=== PATIENT | male | born 1955 | race Caucasian/White ===

== ENCOUNTER → 2019-01-08 | Outpatient (CLI) | payer BC, OTHER ==
[~2019-01-08] MED LIST: AMLO5TAB6 PO; ISOVUE-370 76% 100ML VIAL (Q9967) As Ordered ONE; MICA40TA PO; MOTR200T44 PO; OXYC1TAB23 PO; TYLE167L PO; VALI5TAB PO
--- NOTE | 2019-01-08 23:27 | REP ---
Clinical: Emphysema. Technique: Axial contrast enhanced images from the thoracic inlet to the upper abdomen with coronal and sagittal re-formations using 100 ml Isovue 370 intravenous contrast material. Comparison: None. Findings: Diffuse advanced emphysematous changes along with scattered scarring and fibrosis as well as mild chronic bronchiectasis noted. No focal consolidation, significant nodule, or mass lesion appreciated. No significant adenopathy. No pleural effusion. No pneumothorax. Mediastinum demonstrates normal thoracic aorta, pulmonary vasculature and heart/pericardium. Limited upper abdomen demonstrates normal bilateral adrenal glands. Surrounding musculoskeletal structures demonstrate age-related changes without focal osseous abnormality. Impression: Diffuse chronic emphysematous changes. No acute mediastinal or pleuroparenchymal process appreciated. Electronically Signed by Brandon Faustin MD 01/08/2019 11:18 P
== END ==
LOC: M RAD 16:20
PROVIDERS: ATTEND Thoracic Surgery (Cardiothoracic Vascular Surgery)
DX: J93.11 Primary spontaneous pneumothorax (principal); J43.9 Emphysema, unspecified
CPT/HCPCS: 71260; Q9967

== ENCOUNTER → 2019-02-18 | Outpatient (CLI) | payer BC ==
[~2019-02-18] MED LIST changes: +CELE1CAP4 PO; -ISOVUE-370 76% 100ML VIAL (Q9967) As Ordered ONE; +MULTCAP PO; +OMEG1CAP16 PO; +VITA500C19 PO; +VITAD1000T PO
[2019-02-18 13:38] LABS: HEMATOCRIT 42.8 % (42.0-52.0); HEMOGLOBIN 14.8 g/dl (13.5-17.5); MEAN CORPUSCULAR HEMOGLOBIN 31.4 pg (27.0-33.0); MEAN CORPUSCULAR HGB CONC 34.6 g/dl (32.0-36.5); MEAN CORPUSCULAR VOLUME 90.9 fl (80.0-96.0); PLATELET COUNT, AUTOMATED 222 10^3/uL (150-450); RED BLOOD COUNT 4.71 10^6/uL (4.30-6.10)
[2019-02-18 13:59] LABS: INR 1.08; PROTHROMBIN TIME 13.7 SECONDS (11.8-14.0)
[2019-02-18 14:03] LABS: BLOOD UREA NITROGEN 24 MG/DL (7-18); CALCIUM LEVEL 9.2 MG/DL (8.8-10.2); CARBON DIOXIDE LEVEL 30 MEQ/L (21-32); CHLORIDE LEVEL 104 MEQ/L (98-107); CREATININE FOR GFR 0.92 MG/DL (0.70-1.30); GLOMERULAR FILTRATION RATE > 60.0 (>49); GLUCOSE, FASTING 105 MG/DL (70-100); SODIUM LEVEL 139 MEQ/L (136-145)
[2019-02-18 14:04] LABS: APPEARANCE, URINE CLEAR (CLEAR); BACTERIA, URINE AUTO NEGATIVE (NEGATIVE); BILIRUBIN, URINE AUTO NEGATIVE (NEGATIVE); BLOOD, URINE BLOOD NEGATIVE (NEGATIVE); COLOR, URINE STRAW (YELLOW); GLUCOSE, URINE (UA) AUTO NEGATIVE (NEGATIVE); KETONE, URINE AUTO NEGATIVE (NEGATIVE); LEUKOCYTE ESTERASE, URINE AUTO NEGATIVE (NEGATIVE); NITRITE, URINE AUTO NEGATIVE (NEGATIVE); PROTEIN, URINE AUTO NEGATIVE (NEGATIVE); RBC, URINE AUTO 2 /HPF (0-3); SPECIFIC GRAVITY URINE AUTO 1.006 (1.002-1.035); SQUAMOUS EPITHELIAL CELL UR AU 0 /HPF (0-6); UROBILINOGEN, URINE AUTO 0.2 mg/dL (0.0-2.0); WBC, URINE AUTO 0 /HPF (0-3)
[2019-02-18 14:15] LABS: ABG BASE EXCESS 0.4 (-2.0-2.0); ABG HCO3 24.2 MEQ/L (22.0-26.0); ABG O2 SATURATION 96.1 % (95.0-99.0); ABG PARTIAL PRESSURE CO2 36.4 mmHg (35.0-45.0); ABG PARTIAL PRESSURE O2 82.8 mmHg (75.0-100.0); ABG STANDARD HCO3 24.8 MEQ/L (22.0-26.0); ABG TOTAL CO2 25.3 MEQ/L (23.0-31.0)
--- NOTE | 2019-02-18 18:40 | ECGEPIP ---
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
--- NOTE | 2019-02-19 08:46 | REP ---
REASON: History of bullous emphysema. Bullous emphysematous changes are suspected in the lung upper lobe regions, left greater than right. In the right upper lobe region, there is a potential but vague and subtle 1.2 cm sized opacity. The pleural angles are sharp, and the heart is not enlarged. The osseous structures are within normal limits. IMPRESSION: 1. Bullous emphysematous changes suspected, as described above. 2. Potential right upper lobe nodule, as described above. CT examination of the chest of 01/08/2019 showed marked appearing chronic lung field changes. If the patient is experiencing acute respiratory abnormalities, then I would suggest followup with a chest CT so as it can be compared to the prior CT. Electronically Signed by Lincoln Pulido DO 02/19/2019 11:26 A
== END ==
LOC: M ADMPAT 12:46
PROVIDERS: ATTEND Thoracic Surgery (Cardiothoracic Vascular Surgery)
DX: R91.8 Other nonspecific abnormal finding of lung field (principal); J43.9 Emphysema, unspecified

== ENCOUNTER 2019-02-22 10:02 | Inpatient (IN) | payer BC ==
[2019-02-22] VITALS (10 sets, daily range): BP systolic 95–146; BP diastolic 57–74; O2SAT 99
[~2019-02-22] VITALS: Ht 177.8 cm; Wt 89.7 kg
[~2019-02-22 10:02] MED LIST changes: +LIDOCAINE 1% MDV 20ML VIAL SQ PRN; +LIDOCAINE 2% INJ 100 MG/5 ML SDV (FOR ANES.) As Ordered ONE; +LR 1,000 ML IV ONE; +MIDAZOLAM INJ 2 MG/2 ML VIAL (J2250) As Ordered ONE; +MUPIROCIN 2% OINT 22 GM TUBE TOP ONE; +ONDANSETRON 4MG/2ML VIAL (J2405) As Ordered ONE; +PROPOFOL 200 MG/20 ML VIAL As Ordered ONE; +ROCURONIUM BROMIDE 50 MG/5 ML VIAL As Ordered ONE; +dexameTHASONE 4 MG/ML 1ML VIAL (J1100) As Ordered ONE; +fentaNYL 250 MCG/5 ML INJECTION (J3010) As Ordered ONE
[2019-02-22] MEDS ORDERED: ceFAZolin 2 GM/D5W 50 ML IV BAG (J0690 PER 500MG) As Ordered ONE (10:07)
[2019-02-22] MEDS ORDERED: CETACAINE SPRAY 5GM As Ordered ONE (10:39)
[2019-02-22] MEDS ORDERED: BUPIVACAINE LIPOSOME/PF 1.3% 20ML VIAL (13.3MG/ML)(EXPAREL)(C9290 PER1MG) As Ordered ONE (10:39)
[2019-02-22] MEDS ORDERED: BUPIVACAINE HCL 0.5% 10 ML VIAL As Ordered ONE (10:39)
[2019-02-22] MEDS ORDERED: BUPIVACAINE HCL 0.25% 30 ML VIAL As Ordered ONE (10:54)
[2019-02-22] MEDS ORDERED: MIDAZOLAM INJ 2 MG/2 ML VIAL (J2250) As Ordered ONE (10:55)
[2019-02-22] MEDS ORDERED: fentaNYL 100 MCG/2 ML INJECTION (J3010) As Ordered ONE (10:55)
[2019-02-22] MEDS: fentaNYL 100 MCG/2 ML INJECTION (J3010) IV SCH ×3 (11:00→17:49)
[2019-02-22] MEDS ORDERED: diphenhydrAMINE INJ 50MG/ML VIAL (J1200) IV PRN (11:30)
[2019-02-22] MEDS ORDERED: WALLBOXKEY XX PRN (11:30)
[2019-02-22] MEDS ORDERED: NALOXONE INJ 0.4 MG/1 ML VIAL (J2310) IV PRN (11:30)
[2019-02-22] MEDS ORDERED: ONDANSETRON 4MG/2ML VIAL (J2405) IV PRN ×3 (11:30→15:45)
[2019-02-22] MEDS ORDERED: EPIDURAL/PCA KEYS XX PRN (11:30)
[2019-02-22] MEDS ORDERED: METOCLOPRAMIDE INJ 10MG/2ML VIAL (J2765) IV PRN (11:30)
[2019-02-22] MEDS ORDERED: MIDAZOLAM INJ 2 MG/2 ML VIAL (J2250) IV ONE (11:30)
[2019-02-22] MEDS ORDERED: STERILE TALC POWDER 3GM VIAL As Ordered ONE (11:31)
[2019-02-22] MEDS ORDERED: TALCAIR POWDER BLOWER (CAN ONLY BE USED WITH 3GM TALC VIAL) XX ONE (11:32)
[2019-02-22] MEDS ORDERED: ROCURONIUM BROMIDE 50 MG/5 ML VIAL As Ordered ONE ×2 (12:21→13:44)
[2019-02-22] MEDS ORDERED: ACETAMINOPHEN 1000MG 100ML IV BTL (OFIRMEV) (J0131 PER 10MG) As Ordered ONE (12:53)
[2019-02-22] MEDS ORDERED: SUGAMMADEX SODIUM 500 MG/5 ML VIAL (BRIDION) As Ordered ONE (13:38)
[2019-02-22] MEDS ORDERED: KETOROLAC 60 MG/2 ML VIAL (J1885) As Ordered ONE (14:21)
[2019-02-22] MEDS ORDERED: NORCO, ANEXSIA 5/325MG TABLET (HYDROcodone/ACETAMINOPHEN) PO PRN (14:45)
[2019-02-22] MEDS ORDERED: ACETAMINOPHEN TAB 650MG DOSE (2X325MG) PO PRN (14:45)
[2019-02-22] MEDS ORDERED: PERCOCET 5MG/325MG TAB PO PRN ×2 (14:45→15:45)
[2019-02-22] MEDS ORDERED: LEVALBUTEROL 1.25 MG/0.5 ML CONCENTRATE NEB NEB PRN (14:45)
[2019-02-22] MEDS: FENTANYL/BUPIVACAINE/NACL BAG 250 ML EPIDURAL SCH (15:01)
[2019-02-22 15:21] LABS: ABG BASE EXCESS -2.5 (-2.0-2.0); ABG HCO3 23.7 MEQ/L (22.0-26.0); ABG O2 SATURATION 94.6 % (95.0-99.0); ABG PARTIAL PRESSURE CO2 46.2 mmHg (35.0-45.0); ABG PARTIAL PRESSURE O2 77.4 mmHg (75.0-100.0); ABG STANDARD HCO3 22.3 MEQ/L (22.0-26.0); ABG TOTAL CO2 25.1 MEQ/L (23.0-31.0); ABG pH (ARTERIAL) 7.328 UNITS (7.350-7.450)
[2019-02-22 15:24] LABS: BASO % 0.3 % (0.0-1.0); EOS # 0.1 10^3/uL (0.0-0.50); EOS % 0.8 % (0.0-3.0); HEMATOCRIT 41.5 % (42.0-52.0); HEMOGLOBIN 14.5 g/dl (13.5-17.5); LYMPH # 2.3 10^3/uL (1.5-4.5); LYMPH % 20.1 % (24.0-44.0); MEAN CORPUSCULAR HEMOGLOBIN 32.4 pg (27.0-33.0); MEAN CORPUSCULAR HGB CONC 34.9 g/dl (32.0-36.5); MEAN CORPUSCULAR VOLUME 92.8 fl (80.0-96.0); MONO # 0.3 10^3/uL (0.0-0.8); MONO % 2.6 % (0.0-5.0); NEUTROPHILS # 8.7 10^3/uL (1.8-7.7); NEUTROPHILS % 75.8 % (36.0-66.0); PLATELET COUNT, AUTOMATED 197 10^3/uL (150-450); RED BLOOD COUNT 4.47 10^6/uL (4.30-6.10); WHITE BLOOD COUNT 11.5 10^3/uL (4.0-10.0)
[2019-02-22] MEDS: fentaNYL 100 MCG/2 ML INJECTION (J3010) IV PRN ×4 (15:40→16:31)
[2019-02-22] MEDS ORDERED: LR 1,000 ML IV SCH (15:45)
--- NOTE | 2019-02-22 15:58 | REP ---
CHEST, PORTABLE: AP portable view of the chest is performed and compared to a prior study of 02/18/2019. There are two left chest tubes. I do not see a significant pneumothorax. Heart and mediastinum are unremarkable. I suspect mild interstitial edema bilaterally with some patchy atelectasis or infiltrate in the left mid lung zone. Electronically Signed by Micheal Santos MD 02/24/2019 11:04 P
[2019-02-22 16:00] LABS: BLOOD UREA NITROGEN 20 MG/DL (7-18); CALCIUM LEVEL 8.2 MG/DL (8.8-10.2); CARBON DIOXIDE LEVEL 26 MEQ/L (21-32); CHLORIDE LEVEL 104 MEQ/L (98-107); CREATININE FOR GFR 0.99 MG/DL (0.70-1.30); GLOMERULAR FILTRATION RATE > 60.0 (>49); GLUCOSE, FASTING 153 MG/DL (70-100); POTASSIUM SERUM 4.5 MEQ/L (3.5-5.1); SODIUM LEVEL 138 MEQ/L (136-145)
[2019-02-22] MEDS: KCL 20MEQ IN D5/NS 1000ML 1,000 ML IV SCH (16:00)
[2019-02-22] MEDS: PANTOPRAZOLE 40MG TAB (PROTONIX) PO SCH (17:36)
[2019-02-22] MEDS: amLODIPine 5 MG TAB PO SCH (17:37)
[2019-02-22] MEDS: TELMISARTAN 20 MG TAB PO SCH (18:50)
[2019-02-22] MEDS: LEVALBUTEROL 1.25 MG/0.5 ML CONCENTRATE NEB NEB SCH (20:09)
[2019-02-22] MEDS: KETOROLAC 30 MG/ML VIAL (J1885) IV SCH (20:52)
[2019-02-22] MEDS: HEPARIN SOD (PORCINE) 5000 UNITS/ML VIAL SC SCH (20:53)
[2019-02-22] MEDS: DOCUSATE SODIUM 100 MG CAP PO SCH (20:53)
[2019-02-22] MEDS: ceFAZolin SOD 1 GM in D5W MINI-BAG PLUS 50 ML IV SCH (20:54)
[2019-02-23] VITALS (11 sets, daily range): BP systolic 93–130; BP diastolic 50–75
[2019-02-23] MEDS: KCL 20MEQ IN D5/NS 1000ML 1,000 ML IV SCH ×2 (03:57→17:02)
[2019-02-23] MEDS: KETOROLAC 30 MG/ML VIAL (J1885) IV SCH ×4 (03:57→20:45)
[2019-02-23] MEDS: ceFAZolin SOD 1 GM in D5W MINI-BAG PLUS 50 ML IV SCH ×3 (04:01→20:46)
[2019-02-23] MEDS: LEVALBUTEROL 1.25 MG/0.5 ML CONCENTRATE NEB NEB SCH ×3 (04:14→19:23)
[2019-02-23 05:43] LABS: ABG BASE EXCESS -2.4 (-2.0-2.0); ABG HCO3 22.8 MEQ/L (22.0-26.0); ABG O2 SATURATION 97.7 % (95.0-99.0); ABG PARTIAL PRESSURE CO2 40.6 mmHg (35.0-45.0); ABG PARTIAL PRESSURE O2 106.5 mmHg (75.0-100.0); ABG STANDARD HCO3 22.5 MEQ/L (22.0-26.0); ABG pH (ARTERIAL) 7.367 UNITS (7.350-7.450)
[2019-02-23 06:20] LABS: BASO % 0.2 % (0.0-1.0); HEMATOCRIT 35.8 % (42.0-52.0); HEMOGLOBIN 12.6 g/dl (13.5-17.5); LYMPH # 2.2 10^3/uL (1.5-4.5); LYMPH % 21.5 % (24.0-44.0); MEAN CORPUSCULAR HEMOGLOBIN 32.9 pg (27.0-33.0); MEAN CORPUSCULAR HGB CONC 35.2 g/dl (32.0-36.5); MEAN CORPUSCULAR VOLUME 93.5 fl (80.0-96.0); MONO # 0.9 10^3/uL (0.0-0.8); MONO % 8.3 % (0.0-5.0); NEUTROPHILS # 7.1 10^3/uL (1.8-7.7); NEUTROPHILS % 69.7 % (36.0-66.0); PLATELET COUNT, AUTOMATED 193 10^3/uL (150-450); RED BLOOD COUNT 3.83 10^6/uL (4.30-6.10); WHITE BLOOD COUNT 10.2 10^3/uL (4.0-10.0)
[2019-02-23 06:40] LABS: BLOOD UREA NITROGEN 16 MG/DL (7-18); CALCIUM LEVEL 7.5 MG/DL (8.8-10.2); CARBON DIOXIDE LEVEL 25 MEQ/L (21-32); CHLORIDE LEVEL 107 MEQ/L (98-107); CREATININE FOR GFR 0.96 MG/DL (0.70-1.30); GLOMERULAR FILTRATION RATE > 60.0 (>49); GLUCOSE, FASTING 145 MG/DL (70-100); SODIUM LEVEL 141 MEQ/L (136-145)
[2019-02-23] MEDS: amLODIPine 5 MG TAB PO SCH (09:00)
[2019-02-23] MEDS: TELMISARTAN 20 MG TAB PO SCH (09:00)
[2019-02-23] MEDS: MOM 30ML SUSPENSION UDC PO SCH (09:05)
[2019-02-23] MEDS: HEPARIN SOD (PORCINE) 5000 UNITS/ML VIAL SC SCH ×2 (09:05→20:46)
[2019-02-23] MEDS: VITAMIN D 1,000 INTERNATIONAL UNITS TABLET PO SCH (09:06)
[2019-02-23] MEDS: DOCUSATE SODIUM 100 MG CAP PO SCH ×2 (09:06→20:46)
[2019-02-23] MEDS: PANTOPRAZOLE 40MG TAB (PROTONIX) PO SCH (09:06)
--- NOTE | 2019-02-23 09:25 | REP ---
PA and lateral chest: Comparison is a 2018. There are two left thoracotomy tubes, unchanged. There is no pneumothorax or pleural fluid collection. Diffuse interstitial coarsening is again identified. The focal infiltrate in the left mid lung has decreased in size. Cardiac size is normal. The tim, mediastinum, skeletal structures are unremarkable. There is an epidural catheter, unchanged. Impression: No pneumothorax or pleural fluid collection. Diffuse interstitial coarsening, unchanged. Left mid lung focal infiltrate has decreased in size. Left chest tubes and epidural catheter are unchanged. Electronically Signed by Micheal Mariee MD 02/23/2019 09:16 A
--- NOTE | 2019-02-23 12:14 | IPN ---
DATE: 02/23/2019 This is the first postoperative day for Mr. Agarwal. He has had a stable night of surgery. His pain is being well controlled and, gratifyingly, there is no air leak. His vital signs show a maximum temperature (Tmax) of 98.5, with a heart rate that ranges between 68 and 88 in a sinus rhythm, respiratory rate of 16-18 without the use of accessory muscles, who is 97-98% saturated on 2 liters nasal cannula, and has blood pressures ranging between 102/50 to 126/62. His intake and output for the past 24 hours are recorded as 1773 in and 1000 mL out for a positivity of 768 mL. Chest tube has put out 175 mL, and there is no air leak. He has put out 105 mL of urine. On physical examination, he has crackles in the right and left lower bases during late inspiration. Percussion note is full to the diaphragm. Cardiac exam is without murmurs, clicks, gallops, or rubs. I cannot feel his point of maximum impulse (PMI). S1 and S2 are normal. Abdomen is soft, nontender, but tympanotic and distended. Extremities show no pretibial edema. No calf tenderness. No differential swelling of the upper extremities. Skin is warm, dry, and perfused without cyanosis or mottling, including that of the nail beds and knees. Neck is supple. There is no jugular venous distention. No subcutaneous emphysema. Trachea is midline. Mouth shows his mucous membranes to be pink and moist. Lips and commissures without lesions. There is no thrush. Eyes show his pupils to be equal and reactive. Extraocular motions are intact. Sclerae anicteric. Neurologic shows II-XII intact, along with gross motor and gross sensation intact. Gait is not tested. Psychiatric shows him to be awake and alert and oriented times three with appropriate mood and affect and conversational. His white count today is 10.2 with hemoglobin and hematocrit of 12.6 and 35.8, down from 14.5 and 41.5 secondary to hemodilution. Platelet count is 193, and differentials are 69% neutrophils, 21% lymphocytes, 8% monocytes. There are no immature forms. No toxic granulations. Electrolytes are normal with a BUN and creatinine of 16 and 0.96, glucose of 145, and a calcium 7.5. His blood gasses today show a pH of 7.36, pCO2 of 40, pO2 of 106 on 2 liters nasal cannula with a base excess of -2.4. His chest x-ray today shows his lung fully expanded to the chest wall. There is minimal subcutaneous emphysema at the base of the neck. Costophrenic angles are sharp and diaphragms are equal height. Cardiac silhouette is normal, and I see no overt infiltrates. IMPRESSION: 1. Emphysematous bullous disease. 2. Spontaneous pneumothorax from large bulla. 3. Hypertension. PLAN AND DISCUSSION: I will transfer him to progressive care unit (PCU) today. I will keep him on suction. I am very gratified there is no air leak.
[2019-02-23] MEDS: FENTANYL/BUPIVACAINE/NACL BAG 250 ML EPIDURAL SCH (13:56)
[2019-02-24] VITALS (7 sets, daily range): BP systolic 100–144; BP diastolic 60–78
[2019-02-24] MEDS: LEVALBUTEROL 1.25 MG/0.5 ML CONCENTRATE NEB NEB SCH ×4 (00:20→19:53)
[2019-02-24] MEDS: KETOROLAC 30 MG/ML VIAL (J1885) IV SCH ×4 (03:56→21:03)
[2019-02-24 04:12] LABS: BASO % 0.4 % (0.0-1.0); EOS # 0.2 10^3/uL (0.0-0.50); EOS % 1.7 % (0.0-3.0); HEMATOCRIT 33.7 % (42.0-52.0); HEMOGLOBIN 11.3 g/dl (13.5-17.5); LYMPH # 2.8 10^3/uL (1.5-4.5); LYMPH % 27.5 % (24.0-44.0); MEAN CORPUSCULAR HEMOGLOBIN 31.3 pg (27.0-33.0); MEAN CORPUSCULAR HGB CONC 33.5 g/dl (32.0-36.5); MEAN CORPUSCULAR VOLUME 93.4 fl (80.0-96.0); MONO % 9.6 % (0.0-5.0); NEUTROPHILS # 6.2 10^3/uL (1.8-7.7); NEUTROPHILS % 60.6 % (36.0-66.0); PLATELET COUNT, AUTOMATED 170 10^3/uL (150-450); RED BLOOD COUNT 3.61 10^6/uL (4.30-6.10); WHITE BLOOD COUNT 10.2 10^3/uL (4.0-10.0)
[2019-02-24] MEDS: ceFAZolin SOD 1 GM in D5W MINI-BAG PLUS 50 ML IV SCH ×2 (04:18→13:07)
[2019-02-24 04:33] LABS: BLOOD UREA NITROGEN 16 MG/DL (7-18); CALCIUM LEVEL 7.2 MG/DL (8.8-10.2); CARBON DIOXIDE LEVEL 27 MEQ/L (21-32); CHLORIDE LEVEL 111 MEQ/L (98-107); CREATININE FOR GFR 0.94 MG/DL (0.70-1.30); GLOMERULAR FILTRATION RATE > 60.0 (>49); GLUCOSE, FASTING 137 MG/DL (70-100); POTASSIUM SERUM 3.8 MEQ/L (3.5-5.1); SODIUM LEVEL 142 MEQ/L (136-145)
[2019-02-24] MEDS: KCL 20MEQ IN D5/NS 1000ML 1,000 ML IV SCH (08:39)
[2019-02-24] MEDS: MOM 30ML SUSPENSION UDC PO SCH (08:39)
[2019-02-24] MEDS: VITAMIN D 1,000 INTERNATIONAL UNITS TABLET PO SCH (08:39)
[2019-02-24] MEDS: DOCUSATE SODIUM 100 MG CAP PO SCH ×2 (08:39→20:26)
[2019-02-24] MEDS: PANTOPRAZOLE 40MG TAB (PROTONIX) PO SCH (08:40)
[2019-02-24] MEDS: HEPARIN SOD (PORCINE) 5000 UNITS/ML VIAL SC SCH ×2 (08:41→20:28)
[2019-02-24] MEDS: TELMISARTAN 20 MG TAB PO SCH (09:00)
[2019-02-24] MEDS: amLODIPine 5 MG TAB PO SCH (09:00)
--- NOTE | 2019-02-24 10:51 | REP ---
PA and lateral chest: Comparison is a 2018. The two left thoracotomy tubes are unchanged. There is no pneumothorax. The there is diffuse interstitial coarsening, somewhat worse throughout the left lung on the right. This is unchanged. The small focal infiltrate centrally in the left lung is less radiodense. Cardiac size is normal. The tim, mediastinum, skeletal structures are unremarkable. The epidural catheter is unchanged. Impression: No interval change except that these focal infiltrates centrally in the left lung has decreased in density. Electronically Signed by Micheal Mariee MD 02/24/2019 08:01 A
--- NOTE | 2019-02-24 10:52 | IPN ---
DATE OF SERVICE: 02/24/2019 This is now the second postoperative day for Mr. Agarwal. His pain is more well controlled with the epidural with the epidural being raised to 10 mL/hr. He is coughing but not bringing up any sputum. Gratifying there is no air leak and his chest x-ray shows his lung fully expanded to the chest wall. His vital signs show a T-max of 99.1 with a heart rate that ranges between 88 and 117 in a sinus rhythm, respiratory rate of 18-22 without the use of accessory muscles who is 92-94% saturated on 2 liters nasal cannula and has blood pressure ranging between 108/62 to 121/67. His intake and output over the past 24 hours has been recorded as 2430 in and 1725 out for a positivity of 700 mL. He has put out 125 mL from the chest tube. He weighs 86 kg today compared to 83 kg yesterday. His urine output has been 1600 mL and oral intake has been 1505 mL. PHYSICAL EXAMINATION: He has some coarse rhonchi on the left side. Most significantly however, I hear bibasilar velcro rales at both bases including the right base. These are well pronounced during all of inspiration. Percussion notes are full to the diaphragm. Cardiac exam is without murmurs, clicks, gallops or rubs. I cannot feel his PMI. S1 and S2 are normal. Abdomen is soft, nontender, bowel sounds are positive. There is no hepatomegaly. No CVA tenderness. He is tympanitic and slightly distended and has not yet had a bowel movement. Extremities show no pretibial edema. No calf tenderness. No differential swelling of the upper extremities. Skin is warm, dry and perfused without cyanosis or mottling including that of the nail beds and knees. Neck is supple. There is no jugular venous distention. No subcutaneous emphysema. Trachea is midline. Mouth shows his mucous membranes to be pink and moist. Lips and commissures are without lesions. There is no thrush. Eyes show his pupils to be equal and reactive. Extraocular motor intact. Sclera anicteric. Neuro shows II through XII intact with gross motor and gross sensation intact. Gait is not tested. Psychiatric shows him to be awake and alert, oriented times three with appropriate mood and affect and conversational. His white count today is 10.2 unchanged from yesterday with hemoglobin and hematocrit of 11.3 and 33.7 down from 12.6 and 35.8 yesterday secondary to hemodilution. Platelet count is 170 and differential shows 16% neutrophils, 27% lymphocytes, 9% monocytes. There are no immature forms. No toxic granulations. Electrolytes are essentially normal today with a BUN and creatinine of 16 and 0.94, glucose of 137 and calcium of 7.2. There are no blood gases on him today. His chest x-ray today shows the lung fully expanded to the chest wall. Costophrenic angles are sharp. There is some atelectasis in the left lower hemithorax. I see postoperative changes but no true infiltrates per se. Subcutaneous emphysema is now completely resolved. Chest tubes are in good place. IMPRESSION: 1. Emphysematous bullous disease. 2. Spontaneous pneumothorax from large bulla. 3. Hypertension. 4. Possible interstitial lung disease with bilateral velcro rales. PLAN AND DISCUSSION: I was tempted to remove him from suction, however I really do want that lung to adhere and scar to the chest wall and I will keep him on suction today. He is already spontaneously diuresing and I will not diurese him today. Will heparin lock his IV as his oral intake is adequate.
[2019-02-24] MEDS: FENTANYL/BUPIVACAINE/NACL BAG 250 ML EPIDURAL SCH (13:08)
[2019-02-24] MEDS ORDERED: SLF 3 ML SYR IV PRN (13:30)
[2019-02-24] MEDS: SLF 3 ML SYR IV SCH ×2 (14:18→21:03)
[2019-02-25] MEDS: LEVALBUTEROL 1.25 MG/0.5 ML CONCENTRATE NEB NEB SCH ×4 (00:12→20:20)
[2019-02-25] MEDS: KETOROLAC 30 MG/ML VIAL (J1885) IV SCH ×4 (03:16→20:56)
[2019-02-25 04:00] VITALS: BP 145/85
[2019-02-25 05:38] LABS: BASO % 0.4 % (0.0-1.0); EOS # 0.4 10^3/uL (0.0-0.50); EOS % 3.9 % (0.0-3.0); HEMATOCRIT 33.9 % (42.0-52.0); HEMOGLOBIN 11.4 g/dl (13.5-17.5); LYMPH # 2.8 10^3/uL (1.5-4.5); LYMPH % 29.5 % (24.0-44.0); MEAN CORPUSCULAR HEMOGLOBIN 31.2 pg (27.0-33.0); MEAN CORPUSCULAR HGB CONC 33.6 g/dl (32.0-36.5); MEAN CORPUSCULAR VOLUME 92.9 fl (80.0-96.0); MONO # 0.8 10^3/uL (0.0-0.8); MONO % 8.5 % (0.0-5.0); NEUTROPHILS # 5.5 10^3/uL (1.8-7.7); NEUTROPHILS % 57.2 % (36.0-66.0); PLATELET COUNT, AUTOMATED 189 10^3/uL (150-450); RED BLOOD COUNT 3.65 10^6/uL (4.30-6.10); WHITE BLOOD COUNT 9.6 10^3/uL (4.0-10.0)
[2019-02-25 05:56] LABS: BLOOD UREA NITROGEN 17 MG/DL (7-18); CALCIUM LEVEL 7.3 MG/DL (8.8-10.2); CARBON DIOXIDE LEVEL 25 MEQ/L (21-32); CHLORIDE LEVEL 107 MEQ/L (98-107); CREATININE FOR GFR 0.97 MG/DL (0.70-1.30); GLOMERULAR FILTRATION RATE > 60.0 (>49); GLUCOSE, FASTING 156 MG/DL (70-100); POTASSIUM SERUM 4.1 MEQ/L (3.5-5.1); SODIUM LEVEL 139 MEQ/L (136-145)
[2019-02-25] MEDS: SLF 3 ML SYR IV SCH ×3 (06:00→20:56)
[2019-02-25 08:00] VITALS: BP 116/71
--- NOTE | 2019-02-25 08:42 | IPN ---
DATE: 02/25/2019 This is now the third postoperative day for Mr. Agarwal who is doing well. He has not yet had a bowel movement. His pain is being well controlled with the epidural and he is up and about walking. I still hear the bibasilar Velcro crackles and I am very concerned that this may represent underlying interstitial disease; however, pathology is still pending and probably will not be back before the patient is discharged. His vital signs show a T-max of 98.9 with a heart rate that ranges between 95 and 68 and is sinus rhythm, respiratory rate of 18-16 without the use of accessory muscles who is 95% saturated on room air and whose blood pressure is ranging between 144/78 to 116/60. His intake and output over the past 24 hours has been recorded as 1835 in and 1350 out for a positivity of 485 mL. He has put 85 mL out the chest tube and there is no air leak. He weight today is 88.9 kg compared to 86 kg yesterday. PHYSICAL EXAMINATION: On physical examination, his lungs show equal breath sounds on either side with a full percussion note to the diaphragm. As noted above, I hear the bibasilar Velcro crackles during inspiration on both sides. Cardiac exam is without murmurs, clicks, gallops or rubs. I cannot feel his PMI. S1 and S2 are normal. Abdomen is tympanitic, distended, but nontender. Bowel sounds are positive. There is no hepatomegaly. No CVA tenderness. Extremities show no pretibial edema. No calf tenderness. No differential swelling of the upper extremities. Skin is warm, dry and perfused without cyanosis or mottling including that of the nail beds and knees. Neck is supple. There is no jugular venous distention. No subcutaneous emphysema. Trachea is midline. Mouth shows his mucous membranes to be pink and moist. Lips and commissures are without lesions. There is no thrush. Eyes show his pupils to be equal and reactive. Extraocular motors intact. Sclera nonicteric. Neuro shows II through XII intact along with gross motor and gross sensation intact. Gait is also intact. Psychiatric shows him to be awake and alert, oriented times three with appropriate mood and affect and conversational. His white count today is 9.6 with hemoglobin and hematocrit of 11.4 and 33.9, unchanged from yesterday with a platelet count of 189 and stable. Differential shows 57% neutrophils, 29% lymphocytes, 80% monocytes. There are no immature forms. No toxic granulations. Chemistries show normal electrolytes with a BUN and creatinine of 17 and 0.97, glucose of 156 and calcium of 7.3. Chest x-ray today shows his lung fully expanded to the chest wall with sharp costophrenic angles. Chest tubes are in good place. There is no subcutaneous emphysema. Pathology is, of course, still pending. IMPRESSION: 1. Emphysematous bullous disease. 2. Spontaneous pneumothorax from large bulla. 3. Hypertension. 4. Possible interstitial lung disease, pathology pending. PLAN AND DISCUSSION: I will discontinue his suction today. If all goes well, I will plan to discontinue his chest tube tomorrow and discharge him on Monday.
[2019-02-25] MEDS: MOM 30ML SUSPENSION UDC PO SCH ×2 (09:00→10:57)
[2019-02-25] MEDS: DOCUSATE SODIUM 100 MG CAP PO SCH ×3 (09:00→20:56)
[2019-02-25] MEDS: PANTOPRAZOLE 40MG TAB (PROTONIX) PO SCH (09:30)
[2019-02-25] MEDS: VITAMIN D 1,000 INTERNATIONAL UNITS TABLET PO SCH (09:30)
[2019-02-25] MEDS: amLODIPine 5 MG TAB PO SCH (09:31)
[2019-02-25] MEDS: TELMISARTAN 20 MG TAB PO SCH (09:33)
[2019-02-25] MEDS: HEPARIN SOD (PORCINE) 5000 UNITS/ML VIAL SC SCH ×2 (09:35→20:56)
[2019-02-25] MEDS: BISACODYL 10 MG SUPP PR PRN ×3 (09:35→18:33)
--- NOTE | 2019-02-25 09:39 | REP ---
PA and lateral chest: Comparison is a 2018. The the two left thoracotomy tubes are unchanged. There is no pneumothorax. The diffuse interstitial coarsening is unchanged. The focal infiltrate centrally in the left lung is unchanged. Cardiac size is normal. The tim, mediastinum, skeletal structures are unremarkable. Impression: No interval change. Electronically Signed by Micheal Mariee MD 02/25/2019 09:31 A
[2019-02-25 12:00] VITALS: BP 119/72
[2019-02-25] MEDS: FENTANYL/BUPIVACAINE/NACL BAG 250 ML EPIDURAL SCH (12:58)
[2019-02-25 16:00] VITALS: BP 123/73
[2019-02-25 20:00] VITALS: BP 153/78
--- NOTE | 2019-02-25 20:16 | RO ---
DATE OF PROCEDURE: 02/22/2019 PREPROCEDURE DIAGNOSIS: Emphysematous bullous disease, spontaneous pneumothorax, possible interstitial lung disease. POSTPROCEDURE DIAGNOSIS: Emphysematous bullous disease, spontaneous pneumothorax, possible interstitial lung disease. PROCEDURE: Video-assisted thoracoscopic surgery (VATS), multiple wedge resections with a bullectomy of the left upper lobe and a wedge resection of the left lower lobe, bronchoscopy and talc pleurodesis. SURGEON: Surya Smith MD ROVING WEIGHT GAUGER: ANESTHESIA: FINDINGS: There was a very large anterior superior bulla almost the entire length of the upper lobe, extending to the lingula. There were numerous adhesions to it and to pericardial fat. These lesions were lysed. The bulla was removed with multiple staple lines. The bronchoscopy revealed a normal branching tracheobronchial tree with surprisingly few secretions. There were no endobronchial lesions. DESCRIPTION OF PROCEDURE: Under satisfactory general anesthesia and single lumen tube endotracheal intubation, the bronchoscope was placed into the tracheobronchial tree. The above findings were noted. There was a normal branching pattern and each segment and subsegment were thoroughly inspected and there were no endobronchial lesions. The patient was then turned into the right lateral decubitus position and sterilely prepped and draped in the usual fashion. Eventually four VATS incisions were made. Initially three 5 mm ports were placed. Upon placing the scope, multiple adhesions were found to the lingula, to the pericardial fat. These were lysed with the harmonic scalpel. I looked for but could not find the phrenic nerve. The upper lobe cupola also had numerous adhesions, and these were also lysed with the harmonic scalpel. Finally, the entire upper lobe was freed up and the extent of the bulla was noted. By grasping the inferior edge of the bulla and aiming the stapler posteriorly, the entire bulla was stapled with numerous staple lines along the entire length of the upper lobe. Bulla was placed into a Endo Catch bag and removed via the 12 mm port incision, which had to be extended a few millimeters to release the specimen. The specimen was delivered to the lab for pathological examination. Attention was then turned to the left lower lobe at the costophrenic angle posteriorly, and a wedge of this tissue was taken for diagnostic purposes for suspected interstitial lung disease. The long bulla staple line was then covered with Tisseel glue. Talc was then insufflated throughout the upper portion of the hemithorax. Two chest tubes were placed, a #2 and #24, two straights through the prior 5 mm port incisions. These were secured to the chest wall and connected to the Pleur-evac. Lung was inflated under direct vision. The incisions were closed with a running #0 Vicryl suture for the 12 mm port incision followed by #3-0 Vicryl suture for the subcutaneous tissue and #4-0 Monocryl subcuticular suture for the skin. The patient tolerated the procedure well and left the operating room in satisfactory condition.
[2019-02-25 23:59] VITALS: BP 126/77
[2019-02-26] MEDS: LEVALBUTEROL 1.25 MG/0.5 ML CONCENTRATE NEB NEB SCH ×4 (01:44→20:43)
[2019-02-26] MEDS: KETOROLAC 30 MG/ML VIAL (J1885) IV SCH ×4 (02:13→20:14)
[2019-02-26 04:00] VITALS: BP 116/62
[2019-02-26] MEDS: SLF 3 ML SYR IV SCH ×3 (05:14→20:14)
[2019-02-26 05:39] LABS: BASO % 0.2 % (0.0-1.0); EOS # 0.4 10^3/uL (0.0-0.50); EOS % 3.8 % (0.0-3.0); HEMATOCRIT 33.3 % (42.0-52.0); HEMOGLOBIN 11.3 g/dl (13.5-17.5); LYMPH # 2.5 10^3/uL (1.5-4.5); LYMPH % 27.1 % (24.0-44.0); MEAN CORPUSCULAR HEMOGLOBIN 32.3 pg (27.0-33.0); MEAN CORPUSCULAR HGB CONC 33.9 g/dl (32.0-36.5); MEAN CORPUSCULAR VOLUME 95.1 fl (80.0-96.0); MONO # 0.8 10^3/uL (0.0-0.8); MONO % 8.8 % (0.0-5.0); NEUTROPHILS # 5.5 10^3/uL (1.8-7.7); NEUTROPHILS % 59.6 % (36.0-66.0); PLATELET COUNT, AUTOMATED 199 10^3/uL (150-450); WHITE BLOOD COUNT 9.2 10^3/uL (4.0-10.0)
[2019-02-26 05:58] LABS: BLOOD UREA NITROGEN 19 MG/DL (7-18); CALCIUM LEVEL 7.7 MG/DL (8.8-10.2); CARBON DIOXIDE LEVEL 28 MEQ/L (21-32); CHLORIDE LEVEL 105 MEQ/L (98-107); CREATININE FOR GFR 0.96 MG/DL (0.70-1.30); GLOMERULAR FILTRATION RATE > 60.0 (>49); GLUCOSE, FASTING 123 MG/DL (70-100); POTASSIUM SERUM 4.3 MEQ/L (3.5-5.1); SODIUM LEVEL 138 MEQ/L (136-145)
[2019-02-26 08:00] VITALS: BP 145/82
[2019-02-26] MEDS: VITAMIN D 1,000 INTERNATIONAL UNITS TABLET PO SCH (08:45)
[2019-02-26] MEDS: DOCUSATE SODIUM 100 MG CAP PO SCH ×2 (08:46→20:12)
[2019-02-26] MEDS: MOM 30ML SUSPENSION UDC PO SCH (08:46)
[2019-02-26] MEDS: PANTOPRAZOLE 40MG TAB (PROTONIX) PO SCH (08:46)
[2019-02-26] MEDS: amLODIPine 5 MG TAB PO SCH (08:48)
[2019-02-26] MEDS: TELMISARTAN 20 MG TAB PO SCH (08:49)
[2019-02-26] MEDS: HEPARIN SOD (PORCINE) 5000 UNITS/ML VIAL SC SCH ×2 (08:50→20:14)
--- NOTE | 2019-02-26 09:29 | REP ---
PA and lateral chest: Comparison is a 2018. The two left thoracotomy tubes are unchanged. There is no pneumothorax. The diffuse interstitial coarsening is unchanged. The focal infiltrate centrally in the left lung is unchanged. Cardiac size is normal. The tim, mediastinum, skeletal structures are unremarkable. There is an epidural catheter, unchanged. Impression: There is no interval change. Electronically Signed by Micheal Mariee MD 02/26/2019 09:21 A
[2019-02-26] MEDS: FENTANYL/BUPIVACAINE/NACL BAG 250 ML EPIDURAL SCH (11:40)
[2019-02-26 12:00] VITALS: BP 132/76
--- NOTE | 2019-02-26 13:02 | IPN ---
DATE: 02/26/2019 This now the fourth postoperative day for Mr. Agarwal. His chest tube was taken off suction yesterday and there is no air leak and the lung is fully expanded to the chest wall. He is still complaining of some pain with coughing, but mostly it is well controlled. His vital signs show a T-max of 99.4 with a heart rate that ranges between 89 and 104 and is sinus rhythm, respiratory rate of 16-20 without the use of accessory muscles, who is 91-92% saturated now on room air and whose blood pressure is ranging between 123/73 to 153/78. His intake and output the past 24 hours has been recorded as only 360 in and 2230 out for a negativity of 1870 mL. He has only been assigned 360 mL by p.o. intake. There was 30 mL out the chest tube and there is no air leak. Weight today is 89.5 kilos compared to 88.9 kilos yesterday. On physical examination, his lungs show bibasilar rales during inspiration, Velcro like at the bases. Percussion note is full to the diaphragm. Cardiac exam is without murmurs, clicks, gallops or rubs. I cannot feel his point of maximal impulse (PMI). S1 and S2 are normal. Abdomen is soft and nontender, but still tympanitic and distended. He had a very small pellet like bowel movement today. There is no costovertebral angle (CVA) tenderness. No hepatomegaly. Extremities show no pretibial edema. No calf tenderness. No differential swelling of the upper extremities. Skin is warm, dry and perfused without cyanosis or mottling including that of the nail beds and the knees. Neck is supple. There is no jugular venous distention. No subcutaneous emphysema. Trachea is midline. Mouth shows his mucous membranes to be pink and moist. Lips and commissures are without lesions. There is no thrush. Eyes show his pupils to be equal and reactive. Extraocular motors are intact. Sclera nonicteric. Neuro shows II through XII intact, along with gross motor and gross sensation intact. Gait is not tested. Psychiatric shows him to be awake and alert, oriented times three with appropriate mood, affect and conversational. His white count today is 9.2, and hemoglobin and hematocrit are 11.3 and 33.3, respectively, with a platelet count of 199. Differential shows 59% neutrophils, 27% lymphocytes, 8% monocytes. There are no immature forms. No toxic granulations. His electrolytes are normal with a BUN and creatinine of 19 and 0.96. Glucose of 123 and a calcium of 7.7. His chest x-ray today shows the lung fully expanded to the chest wall. Chest tubes are in good place. There is no subcutaneous emphysema. Costophrenic angles are sharp. He has a slight infiltrative opacity in the left lower lobe which is new from 02/24. 02/25 it was also vague. Lateral film does not show any posterior infiltrates. I am not sure whether it is an exposure issue or whether it is real on the PA film. IMPRESSION: 1. Emphysematous bullous disease. 2. Spontaneous pneumothorax and large bulla. 3. Hypertension. 4. Possible interstitial lung disease, pathology pending. PLAN AND DISCUSSION: I will discontinue his chest tube today, wean the epidural and discontinue the Warner. Hopefully tomorrow we will be able to discharge him. We will give him oral pain medications during the wean.
[2019-02-26 16:00] VITALS: BP 109/57
[2019-02-26] MEDS: BISACODYL 10 MG SUPP PR PRN (18:03)
[2019-02-26] MEDS: PERCOCET 5MG/325MG TAB PO PRN ×2 (18:04→22:38)
[2019-02-26 20:00] VITALS: BP 133/73
[2019-02-26 23:59] VITALS: BP 126/67
[2019-02-27] MEDS: LEVALBUTEROL 1.25 MG/0.5 ML CONCENTRATE NEB NEB SCH ×2 (01:33→08:00)
[2019-02-27] MEDS: SLF 3 ML SYR IV SCH (03:42)
[2019-02-27] MEDS: KETOROLAC 30 MG/ML VIAL (J1885) IV SCH ×2 (03:42→09:57)
[2019-02-27 04:00] VITALS: BP 109/61
[2019-02-27] MEDS: PERCOCET 5MG/325MG TAB PO PRN (05:42)
[2019-02-27 06:05] LABS: BASO % 0.5 % (0.0-1.0); EOS # 0.3 10^3/uL (0.0-0.50); EOS % 3.9 % (0.0-3.0); HEMOGLOBIN 11.6 g/dl (13.5-17.5); LYMPH # 2.4 10^3/uL (1.5-4.5); LYMPH % 32.1 % (24.0-44.0); MEAN CORPUSCULAR HEMOGLOBIN 33.2 pg (27.0-33.0); MEAN CORPUSCULAR HGB CONC 35.2 g/dl (32.0-36.5); MEAN CORPUSCULAR VOLUME 94.6 fl (80.0-96.0); MONO # 0.9 10^3/uL (0.0-0.8); MONO % 11.4 % (0.0-5.0); NEUTROPHILS # 3.9 10^3/uL (1.8-7.7); NEUTROPHILS % 51.4 % (36.0-66.0); PLATELET COUNT, AUTOMATED 201 10^3/uL (150-450); RED BLOOD COUNT 3.49 10^6/uL (4.30-6.10); WHITE BLOOD COUNT 7.5 10^3/uL (4.0-10.0)
[2019-02-27 06:31] LABS: BLOOD UREA NITROGEN 20 MG/DL (7-18); CARBON DIOXIDE LEVEL 28 MEQ/L (21-32); CHLORIDE LEVEL 105 MEQ/L (98-107); CREATININE FOR GFR 1.06 MG/DL (0.70-1.30); GLOMERULAR FILTRATION RATE > 60.0 (>49); GLUCOSE, FASTING 107 MG/DL (70-100); POTASSIUM SERUM 4.4 MEQ/L (3.5-5.1); SODIUM LEVEL 139 MEQ/L (136-145)
[2019-02-27 08:00] VITALS: BP 125/75
[2019-02-27] MEDS ORDERED: PERCOCET PO (08:03)
[2019-02-27] MEDS: HEPARIN SOD (PORCINE) 5000 UNITS/ML VIAL SC SCH (09:00)
[2019-02-27] MEDS: MOM 30ML SUSPENSION UDC PO SCH (09:00)
[2019-02-27] MEDS: VITAMIN D 1,000 INTERNATIONAL UNITS TABLET PO SCH (09:54)
[2019-02-27] MEDS: TELMISARTAN 20 MG TAB PO SCH (09:54)
[2019-02-27] MEDS: DOCUSATE SODIUM 100 MG CAP PO SCH (09:54)
[2019-02-27 09:55] VITALS: BP 125/75
[2019-02-27] MEDS: amLODIPine 5 MG TAB PO SCH (09:55)
[2019-02-27] MEDS: PANTOPRAZOLE 40MG TAB (PROTONIX) PO SCH (09:55)
--- NOTE | 2019-02-27 12:04 | REP ---
Clinical: Status post pulmonary bullectomy. Technique: PA and lateral. Comparison: 02/26/2019. Findings: Left chest tubes have been removed. Pleuroparenchymal changes involving the left hemithorax remain essentially unchanged including elements of infiltrate and atelectasis as well as possible small pleural effusion. The right hemithorax is relatively clear/stable. Mediastinum and cardiac silhouette within normal limits. Skeletal structures intact. Impression: Status post left chest tube removal. Stable pleuroparenchymal changes involving left hemithorax. Electronically Signed by Brandon Faustin MD 02/27/2019 07:40 A
--- NOTE | 2019-02-28 11:46 | DSES ---
DATE OF ADMISSION: 02/22/2019 DATE OF DISCHARGE: 02/27/2019 DISCHARGE DIAGNOSES: 1. Emphysematous bullous disease. 2. Spontaneous pneumothorax secondary to large bulla. 3. Hypertension. 4. Possible interstitial lung disease, pathology pending. HOSPITAL COURSE: Patient is a 63-year-old white male who suffered severe tension pneumothorax at [facility]. He was referred here after multiple chest tubes were needed to control his pneumothorax. Since his pneumothorax, he had a fairly severe cough for which he was placed on Levaquin. The cough and sputum production resolved. There was no fever, chills or sweats at the time of surgery. His CT scan showed very large upper lobe bulla. He was noted to have Velcro crackles at the bases and CT scan was consistent with possible interstitial lung disease at a very early stage. He has a negative alpha antitrypsin. Pulmonary function tests show an FEV1 of 2.55, which is 74% predicted, which improved to 2.68 with bronchodilation and his diffusion capacity is very decreased to 54% with a diffusion lung capacity (MARY) of 15.08. He was therefore, taken to the operating room where the large bulla was removed via video-assisted thoracoscopic surgery (VATS) techniques. A wedge of lower lobe at the costophrenic angle was also obtained for diagnostic purposes for interstitial lung disease. He also underwent talc pleurodesis. He had a benign postoperative course with his air-leak ceasing on the first postoperative day. Chest tube was kept at suction for 3 days and was removed on the fourth postoperative day. Throughout his course, he had bibasilar Velcro crackles in each lung best heard in the right side. He is being discharged today on his home medications which includes - amlodipine 5 mg daily - vitamin C 500 mg daily - Celebrex 200 mg daily - diazepam 5 mg as needed anxiety - multivitamins one daily - Micardis 40 mg daily - vitamin D 1000 units daily He is also being placed on Percocet 5/325 every 4 hours as needed pain. He will return to see me in 1 week with a chest x-ray. At that time, we will hopefully have pathology back. His discharge hemoglobin and hematocrit are 11.6 and 33.0 with a discharge white count of 7.5. His electrolytes are normal with a BUN and creatinine of 20 and 1.06. His chest x-ray shows his lungs fully expanded to the chest wall with coarse postoperative changes and/or interstitial disease.
== END 2019-02-27 11:44 | disposition home or self-care (01) | DRG 120 ==
LOC: M OR 10:02 → M ICU 16:37 → M PCU 02-23 11:35
PROVIDERS: ADMIT Thoracic Surgery (Cardiothoracic Vascular Surgery); ATTEND Thoracic Surgery (Cardiothoracic Vascular Surgery)
PROC: 0BBG4ZZ Excision of Left Upper Lung Lobe, Percutaneous Endoscopic Approach (ICD-10-PCS; 2019-02-22)
PROC: 0BJQ4ZZ Inspection of Pleura, Percutaneous Endoscopic Approach (ICD-10-PCS; 2019-02-22)
PROC: 3E0L3GC Introduction of Other Therapeutic Substance into Pleural Cavity, Percutaneous Approach (ICD-10-PCS; 2019-02-22)
PROC: 0BJ08ZZ Inspection of Tracheobronchial Tree, Via Natural or Artificial Opening Endoscopic (ICD-10-PCS; 2019-02-22)
PROC: 0BBJ4ZZ Excision of Left Lower Lung Lobe, Percutaneous Endoscopic Approach (ICD-10-PCS; principal; 2019-02-22 11:30)
DX: J43.2 Centrilobular emphysema (principal); J93.0 Spontaneous tension pneumothorax; J84.10 Pulmonary fibrosis, unspecified; I10 Essential (primary) hypertension; M48.061 Spinal stenosis, lumbar region without neurogenic claudication; M51.26 Other intervertebral disc displacement, lumbar region; M10.9 Gout, unspecified; G47.30 Sleep apnea, unspecified; Z87.891 Personal history of nicotine dependence; Z79.899 Other long term (current) drug therapy

== ENCOUNTER → 2019-03-08 | Outpatient (CLI) | payer BC ==
[~2019-03-08] MED LIST changes: +CHOL100029 PO; -LIDOCAINE 1% MDV 20ML VIAL SQ PRN; -LIDOCAINE 2% INJ 100 MG/5 ML SDV (FOR ANES.) As Ordered ONE; -LR 1,000 ML IV ONE; -MIDAZOLAM INJ 2 MG/2 ML VIAL (J2250) As Ordered ONE; -MUPIROCIN 2% OINT 22 GM TUBE TOP ONE; -ONDANSETRON 4MG/2ML VIAL (J2405) As Ordered ONE; +PERCOCET PO; -PROPOFOL 200 MG/20 ML VIAL As Ordered ONE; -ROCURONIUM BROMIDE 50 MG/5 ML VIAL As Ordered ONE; -VITAD1000T PO; -dexameTHASONE 4 MG/ML 1ML VIAL (J1100) As Ordered ONE; -fentaNYL 250 MCG/5 ML INJECTION (J3010) As Ordered ONE
--- NOTE | 2019-03-08 10:00 | REP ---
Clinical: History of spontaneous pneumothorax. Technique: PA and lateral. Comparison: 02/27/2019. Findings: Mediastinum and cardiac silhouette are stable. Lung hoover demonstrate diffuse bilateral chronic changes as well as left-sided postsurgical changes. No obvious acute consolidation, effusion, or pneumothorax. Skeletal structures are stable. Impression: Diffuse chronic and left-sided postsurgical changes. No definite acute process. Electronically Signed by Brandon Faustin MD 03/08/2019 09:52 A
== END ==
LOC: M SMT 09:15
PROVIDERS: ATTEND Thoracic Surgery (Cardiothoracic Vascular Surgery)
DX: J93.0 Spontaneous tension pneumothorax (principal)

== ENCOUNTER → 2019-03-19 | Outpatient (CLI) | payer BC ==
[2019-03-19 19:55] LABS: C REACTIVE PROTEIN QUANTITATIV < 0.30 MG/DL (0.00-0.30); RHEUMATOID FACTOR QUANT < 10.0 IU/ML (<15.0)
[2019-03-24 00:10] LABS: ASPERGILLUS FLAVUS ABY Negative (Neg:<1:1); ASPERGILLUS FUMIGATUS ABY Negative (Neg:<1:1); ASPERGILLUS NIGER ABY Negative (Neg:<1:1)
[2019-03-25 10:30] LABS: ANCA-ATYPICAL <1:20 titer (Neg:<1:20); ANGIOTENSIN 1 CONVERTING ENZYM 70 U/L (14-82); ANTI JO-1 ANTIBODIES <0.2 AI (0.0-0.9); ANTI SCLERODERMA ANTIBODIES <0.2 AI (0.0-0.9); ANTINUCLEAR ANTIBODIES DIRECT Negative (Negative); ASPERGILLUS FUMIGATUS AB Negative (Negative); AUREOBASIDIUM PULLULANS Negative (Negative); BLASTOMYCES ANTIBODY LEVEL Negative (Neg:<1:1); CRYPTOCOCCUS ANTIGEN SER Negative (Negative); CYCLIC CITRULLINATED PEPTIDE 3 units (0-19); CYTOPLASMIC NEUTROP AB ANCA-C <1:20 titer (Neg:<1:20); HISTOPLASMOSIS ANTIBODY Negative (Neg:<1:1); MICROPOLYSPORA FAENI AB Negative (Negative); PERINUCLEAR AB ANCA-P <1:20 titer (Neg:<1:20); PIGEON SERUM AB Negative (Negative); SJOGREN'S ANTI SS-A <0.2 AI (0.0-0.9); SJOGREN'S ANTI SS-B 0.8 AI (0.0-0.9); THERMOACTINOMYCES SACCHARI Negative (Negative); THERMOACTINOMYCES VULGARIS Negative (Negative)
== END ==
LOC: M LAB 16:30
PROVIDERS: ATTEND Internal Medicine Pulmonary Disease
DX: J84.10 Pulmonary fibrosis, unspecified (principal)

== ENCOUNTER 2019-07-01 11:40 | Emergency (ER) | payer BC ==
[~2019-07-01] VITALS: Ht 177.8 cm; Wt 89.7 kg
[2019-07-01] MEDS ORDERED: LOSA100T50 PO (12:10)
[2019-07-01] MEDS ORDERED: OSTE5TAB PO (12:10)
--- NOTE | 2019-07-01 14:33 | REP ---
Clinical: Right hip pain. Technique: Neutral and frog lateral views of the right hip. Findings: No acute fracture or dislocation. Skeletal structures, joint spaces, and surrounding soft tissues are essentially age-appropriate. No overt arthritic findings are appreciated. Surrounding soft tissues are unremarkable. Impression: Age-appropriate right hip radiographs. Electronically Signed by Brandon Faustin MD 07/01/2019 02:25 P
[2019-07-01 14:38] VITALS: BP 152/90
== END 2019-07-01 14:40 | disposition home or self-care (01) ==
LOC: M ED 11:40
DX: M25.551 Pain in right hip (principal); I10 Essential (primary) hypertension; Z79.899 Other long term (current) drug therapy

== ENCOUNTER → 2020-01-06 | Outpatient (CLI) | payer BC ==
[~2020-01-06] MED LIST changes: +LOSA100T50 PO; +OSTE5TAB PO
[2020-01-06 13:37] LABS: COLLAGEN EPINEPHRINE 123 SECONDS (74-162)
== END ==
LOC: M WUC 12:19
PROVIDERS: ATTEND Physician Assistant
DX: M48.061 Spinal stenosis, lumbar region without neurogenic claudication (principal)

== ENCOUNTER → 2020-01-06 | Outpatient (CLI) | payer BC ==
[2020-01-06 15:06] LABS: ALBUMIN 4.1 GM/DL (3.2-5.2); ALT/SGPT 39 U/L (12-78); BLOOD UREA NITROGEN 22 MG/DL (7-18); CALCIUM LEVEL 9.4 MG/DL (8.8-10.2); CARBON DIOXIDE LEVEL 25 MEQ/L (21-32); CHLORIDE LEVEL 106 MEQ/L (98-107); CREATININE FOR GFR 0.97 MG/DL (0.70-1.30); GLOMERULAR FILTRATION RATE > 60.0 (>49); GLUCOSE, FASTING 95 MG/DL (70-100); POTASSIUM SERUM 4.3 MEQ/L (3.5-5.1); SODIUM LEVEL 138 MEQ/L (136-145); TOTAL PROTEIN 7.5 GM/DL (6.4-8.2)
== END ==
LOC: M WUC 12:22
PROVIDERS: ATTEND Physician Assistant Medical
DX: I10 Essential (primary) hypertension (principal)

== ENCOUNTER → 2020-01-09 | Outpatient (CLI) | payer BC ==
[~2020-01-09] MED LIST changes: +AMLO1TAB24 PO; -AMLO5TAB6 PO
== END ==
LOC: M LABSMTC 10:40
PROVIDERS: ATTEND Physical Medicine & Rehabilitation
DX: Z01.818 Encounter for other preprocedural examination (principal); Z11.59 Encounter for screening for other viral diseases; Z20.828 Contact with and (suspected) exposure to other viral communicable diseases

== ENCOUNTER → 2020-02-18 | Outpatient (CLI) | payer BC ==
--- NOTE | 2020-03-27 10:15 | REP ---
CT OF THE CHEST WITHOUT IV CONTRAST FOR PULMONARY FIBROSIS AND CENTRAL LOBULAR EMPHYSEMA Delay in reporting results from hospital computer system malfunction from malware/ ransomware. COMPARISON: 01/08/2019 and 05/22/2019 On 01/08/2019, there were large bullae anteriorly in the left upper lobe and right upper lobe. On 05/22/2019, the bullae in the right upper lobe were no longer seen; however, there was curvilinear scarring in the area possibly from interval surgery. There was also nodular thickening of the posterior pleura in the left upper lobe and superior segment of the left lower lobe, also an interval change, possibly related to pleural fibrotic change vs neoplasm. Some of these nodules appeared to enhance. These pleural nodules are unchanged on the study today and again appear to enhance, but there has been no interval size increase. The large bullae anteriorly in the left upper lobe are unchanged from both prior studies. There are scattered bullae throughout the remainder of the lung hoover bilaterally consistent with the clinical history. There are small subpleural bullae posteriorly in the lower lobes bilaterally. This is unchanged. There are no acute infiltrates. There are no pleural effusions. There is no mediastinal lymph node enlargement. There is no axillary lymph node enlargement. This study is insensitive for hilar lymph node enlargement in the absence of IV contrast. The thoracic aorta is unremarkable. Cardiac size is normal. There is no pericardial effusion. The visualized upper abdominal contents are unremarkable. There is no adrenal nodule or mass. IMPRESSION: There appears to be curvilinear surgical scarring in the left upper lobe and the previously identified large bullae in this area are no longer identified. There is nodular thickening of the pleura in the left upper lobe, particularly posteriorly. Some of these nodules appear to enhance. This is unchanged from 05/22/2019 and may be a postsurgical change. There are no acute infiltrates or pleural effusions. There are numerous bullae throughout the lung hoover bilaterally including multiple subpleural bullae in the lower lobes bilaterally. This is unchanged from the prior studies. MTDD
== END ==
LOC: M RAD 11:00
PROVIDERS: ATTEND Ophthalmology
DX: J84.10 Pulmonary fibrosis, unspecified (principal); J43.2 Centrilobular emphysema

== ENCOUNTER → 2020-04-22 | Outpatient (CLI) | payer BC | LOC: M LABSMTC 10:52 | PROVIDERS: ATTEND Physical Medicine & Rehabilitation | DX: Z01.812 Encounter for preprocedural laboratory examination (principal); Z20.828 Contact with and (suspected) exposure to other viral communicable diseases ==

== ENCOUNTER 2020-06-24 11:14 | Emergency (ER) | payer BC ==
[~2020-06-24] VITALS: Ht 177.8 cm; Wt 79.3 kg
[~2020-06-24 11:14] MED LIST changes: -ACET500C8 PO; -CYMB1CAP5 PO; -D31000TA2 PO; -DICL1PAT6 TOP; -GABA-843 PO; -GABA600T4 PO; -MAGN500C2 PO; -MULT-90 PO; -PEG1POW PO; -PERC5TAB12 PO; -PRED20TA PO; -PROAAER10 INH; -SPIR12.9 INH
[2020-06-24] MEDS ORDERED: PERCOCET 5MG/325MG TAB PO ONE (12:00)
--- NOTE | 2020-06-24 12:41 | REP ---
INDICATION: low back injury; right leg pain. COMPARISON: MRI dated 02/16/2016 TECHNIQUE: Axial noncontrast images of the lumbosacral spine from mid T12 through mid sacrum with coronal and sagittal reformations. This CT examination was performed using the following dose reduction techniques: Automated exposure control, adjustment of mA and/or kv according to the patient's size, and use of iterative reconstruction technique. FINDINGS: The vertebral bodies are intact and there is no evidence for acute fracture/compression injury or subluxation. Moderate to significant disc bulges at the L2-3, L4-5 and L5-S1 levels along with associated endplate sclerosis and disc space narrowing most pronounced at L5-S1 remain essentially stable as compared to MRI. There has been mildly progressive retrolisthesis at the L3-4 level measuring approximately 4 mm with associated facet arthropathy and ligamentous hypertrophy causing mild/moderate canal stenosis. Moderate elements of chronic canal stenosis at the L2-3, L4-5 and L5-S1 levels are also noted but similar to prior MRI. IMPRESSION: 1. No evidence for acute fracture/compression injury or subluxation. 2. Moderate to advanced multilevel degenerative spondylosis essentially similar in appearance to prior MRI dated 2015. 3. However, mildly progressive retrolisthesis at the L3-4 level with associated canal stenosis appears to be slightly increased. <Electronically signed by Brandon Faustin > 06/24/20 [id number]
[2020-06-24] MEDS ORDERED: GABA600T4 PO (13:01)
[2020-06-24] MEDS ORDERED: PERC5TAB12 PO (13:01)
[2020-06-24 13:09] VITALS: BP 128/76
== END 2020-06-24 13:11 | disposition home or self-care (01) ==
LOC: M ED 11:14
DX: M54.16 Radiculopathy, lumbar region (principal); Z87.891 Personal history of nicotine dependence; Z79.899 Other long term (current) drug therapy

== ENCOUNTER → 2020-06-24 | Outpatient (CLI) | payer BC ==
[~2020-06-24] MED LIST changes: +ACET500C8 PO; +CYMB1CAP5 PO; +D31000TA2 PO; +DICL1PAT6 TOP; +GABA-843 PO; +GABA600T4 PO; +MAGN500C2 PO; +MULT-90 PO; +PEG1POW PO; +PERC5TAB12 PO; +PRED20TA PO; +PROAAER10 INH; +SPIR12.9 INH
== END ==
LOC: M LABSMTC 11:00
PROVIDERS: ATTEND Physical Medicine & Rehabilitation
DX: Z20.828 Contact with and (suspected) exposure to other viral communicable diseases (principal)

== ENCOUNTER 2020-06-27 10:34 | Inpatient (IN) | payer BC ==
[~2020-06-27] VITALS: Ht 177.8 cm; Wt 79.7 kg
[~2020-06-27 10:34] MED LIST changes: +GABA600T4 PO; +PERC5TAB12 PO
[2020-06-27] MEDS ORDERED: MORPHINE 4 MG/ML 1ML VIAL/SYRINGE (J2270) IV ONE (12:30)
[2020-06-27] MEDS ORDERED: diazePAM 10MG/2ML SYRINGE (J3360 PER 5MG) IV ONE (12:30)
--- NOTE | 2020-06-27 15:01 | REPVR ---
PROCEDURE INFORMATION: Exam: MR Lumbar Spine Without Contrast. Exam date and time: 06/27/2020 2:44 PM Age: 64 years old Clinical indication: Low back pain and other: Right leg numbness/incontinence of urine TECHNIQUE: Imaging protocol: Multiplanar magnetic resonance images of the lumbar spine without intravenous contrast. COMPARISON: CT Spine, lumbar w/o contrast 06/24/2020 12:11 PM FINDINGS: Vertebrae: Unremarkable. Spinal cord: Normal signal. No cord compression. L1-L2: No significant disc disease. No significant spinal canal stenosis. No neural foraminal stenosis. L2-L3: There is minimal retrolisthesis at L2/3. There is disc space narrowing and desiccation. There are moderate degenerative end plate changes at this level. There is moderate disc bulging. Disc bulging extends into both neural foramen causing mild bilateral neural foraminal narrowing. There is facet arthropathy and ligamentum flavum hypertrophy. There is mild spinal canal stenosis. L3-L4: There is minimal retrolisthesis at L3/4. There is moderate disc bulging. There is moderate bilateral neural foraminal narrowing. There is a right foraminal disc herniation. There is a small extruded disc fragment that extends inferiorly and effaces the right lateral recess. There is facet arthropathy and ligamentum flavum hypertrophy. There is moderate spinal canal stenosis. L4-L5: There is disc space narrowing and desiccation. There are moderate degenerative end plate changes at this level. There is a moderate disc/osteophyte complex that flattens the ventral thecal sac. There is moderate bilateral neural foraminal narrowing. There is exuberant bilateral facet arthropathy and ligamentum flavum hypertrophy. There is mild spinal canal stenosis. Question prior right hemilaminectomy at this level, please correlate with surgical history. L5-S1: There is disc space narrowing and desiccation. There are moderate degenerative end plate changes at this level. There is a moderate disc/osteophyte complex that flattens the ventral thecal sac. There is moderate bilateral neural foraminal narrowing. There is facet arthropathy and ligamentum flavum hypertrophy. The urinary bladder is moderately distended. IMPRESSION: 1. Moderate multilevel degenerative changes causing variable degrees of spinal canal and neuroforaminal narrowing as described above. Right foraminal disc herniation at L3/4. Small extruded fragment that extends inferiorly and effaces the right lateral recess. Please see details above. 2. The urinary bladder is moderately distended. Electronically signed by: Jeremie Cisneros On 06/27/2020 15:01:09 PM
[2020-06-27] MEDS ORDERED: MAALOX 30 ML SUSP *UDC PO PRN (19:15)
[2020-06-27] MEDS ORDERED: MOM 30ML SUSPENSION UDC PO PRN (19:15)
[2020-06-27] MEDS ORDERED: SPIR12.9 INH (19:26)
[2020-06-27] MEDS ORDERED: D31000TA2 PO (19:26)
[2020-06-27] MEDS ORDERED: GABA600T4 PO (19:26)
[2020-06-27] MEDS ORDERED: ACET500C8 PO (19:26)
[2020-06-27] MEDS ORDERED: MAGN500C2 PO (19:26)
[2020-06-27] MEDS ORDERED: PRED20TA PO (19:26)
[2020-06-27] MEDS ORDERED: MULT-90 PO (19:26)
[2020-06-27] MEDS ORDERED: PROAAER10 INH (19:26)
--- NOTE | 2020-06-27 20:56 | HPEPDOC ---
[facility] Medical History & Physical Date of Admission Jun 27, 2020 Date of Service: Jun 27, 2020 Primary Care Physician: Ezequiel Gutierrez Attending Physician: BRYCE LOZANO MD History and Physical TIME OF SERVICE: 745PM CHIEF COMPLAINT: pain HISTORY OF PRESENT ILLNESS: This 64 yr old M presented w c/o acute worsening of his chronic right leg pain over the last 10 days. He describes the pain as 9/10 in severity and unbearable. The pain is sharp and shooting in nature at the right upper lateral part of the upper leg and burning in nature at the right lower part of the leg. He also has numbness at the lateral aspect of his right foot. Over the last 10 days he has not fallen, he denies having back pain, denies having urinary or fecal incontinence and denies having fevers or chills. He also came to the ER on Jun 24 w similar c/o and reported that he ran out of his gabapentin; he was discharged home with a 30 day dose of gabapentin and 12 tabs of Percocet. Today he came back because he had to take more of his meds than prescribed to control the pain and felt that he needed an MRI of the back. Per d/w Marcy Gonzalez the patient was seen by Dr. Trinh who recommended admission for pain control. 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 HOME MEDICATIONS: Please see below. PHYSICAL EXAMINATION: Vital Signs Date Time Temp Pulse Resp B/P (MAP) Pulse Ox O2 Delivery O2 Flow Rate FiO2 06/27/20 10:34 98.3 80 18 157/93 (114) 96 Room Air GENERAL APPEARANCE: well nourished/ well developed / NAD HEENT: EOMI / mask in place covering lower face CARDIOVASCULAR: radial pulses intact MUSCULOSKELETAL: able to sit up from lying down with assistance of bed rails/ able to stand up and walk with the assistance of a cane/ his gait is unsteady and favoring his right side / negative WILLIE tests bilaterally / negative Lasgue sign bilaterally, he c/o of pain shooting to his right lateral leg with straight leg test on the right side NEUROLOGICAL:CN2-12 intact / speech not dysarthric PSYCHIATRIC: A&O x 3 / able to understand and follow all commands IMAGING: MRI Lumbar spine IMPRESSION: 1. Moderate multilevel degenerative changes causing variable degrees of spinal canal and neuroforaminal narrowing as described above. Right foraminal disc herniation at L3/4. Small extruded fragment that extends inferiorly and effaces the right lateral recess. Please see details above. 2. The urinary bladder is moderately distended. MICROBIOLOGY: COVID 19 neg ASSESSMENT: is a 64 yr old w a hx of Emphysema, HTN , IPF vs Interstitial Pneumonitis, Chronic Right sided Lumbar Radiculopathy and history of 2 back surg eries who presented w c/o of acute worsening of his right upper and lower lateral leg radiculopathy; he will be admitted for pain management. PLAN: 1. Acute on Chronic right lumbar radiculopathy Plan: admit to medical floor / f/u w Ortho / K pad / f/u CBC and CMP / add Flector patch, add duloxetine, increase gabapentin from 600 BID to 600 TID, c/w celecoxib 200mg po daily, c/w Percocet 5-325 1 tab PO Q6H PRN, c/w prednisone sunday / f/u w Ortho / will ask the day time team to consider Pain Med consult / PT consult 2. Emphysema / IPF? Plan: albuterol & Spiriva 3. Chronic HTN Plan: losartan 4. Mnires disease Plan: Valium DVT Px w Lovenox Dispo: home after at least 2 midnights stay Home Medications Scheduled Acetylcarnitine (Acetyl l-Carnitine) 500 Mg Capsule, 1,000 MG PO DAILY Ascorbic Acid (Vitamin C) 500 Mg Capsule.er, 500 MG PO DAILY Celecoxib (Celebrex) 200 Mg Capsule, 200 MG PO DAILY Cholecalciferol (Vitamin D3) (Vitamin D3) 1,000 Unit Tablet, 5,000 UNITS PO DAILY Diclofenac Epolamine (Diclofenac Epolamine) 1 Each Patch.td12, 1 PATCH TOP Q12H for pain Duloxetine Hcl (Cymbalta) 30 Mg Capsule.dr, 30 MG PO QHS Gabapentin (Gabapentin) 300 Mg Capsule, 600 MG PO Q8H Losartan Potassium (Losartan Potassium) 100 Mg Tablet, 50 MG PO DAILY Magnesium Oxide (Magnesium Oxide) 500 Mg Capsule, 500 MG PO DAILY Multivitamin (Multivitamin) 1 Each Tablet, 1 EACH PO DAILY [place]-3/Dha/Epa/Fish Oil ([place] 3 500 Softgel) 1 Each Capsule, 1 CAP PO DAILY Polyethylene Glycol 3350 (Polyethylene Glycol 3350) 17 Gm Powd.pack, 1 PKT PO DAILY Prednisone (Prednisone) 20 Mg Tablet, 20 MG PO TAPER patient has bottle with him with taper directions Tiotropium [place] (Spiriva Respimat) 4 Gm Mist.inhal, 2 INHALATION INH DAILY Scheduled PRN Albuterol Sulfate (Proair Hfa) 8.5 Gm Hfa.aer.ad, 2 PUFF INH Q4H PRN for SHORTNESS OF BREATH Diazepam (Valium) 5 Mg Tab, 5 MG PO BID PRN for ANXIETY Oxycodone HCl/Acetaminophen (Percocet 5-325 mg Tablet) 1 Each Tablet, 1 TAB PO Q6H PRN for PAIN Allergies Coded Allergies: No Known Allergies (Unverified , 07/23/15) A-FIB/CHADSVASC A-FIB History Current/History of A-Fib/PAF?: No Current PO Anticoag Therapy: No BRYCE LOZANO MD Jun 27, 2020 20:56
[2020-06-27] MEDS ORDERED: diazePAM 5MG TABLET PO PRN (21:00)
[2020-06-27] MEDS ORDERED: HYDROMORPHONE HCL 0.5 MG/ 0.5 ML SYRINGE (J1170 PER 1) IV ONE (21:00)
[2020-06-27] MEDS ORDERED: ENOXAPARIN 40MG/0.4ML SYRINGE (J1650 PER 10MG) SC SCH (21:00)
[2020-06-27] MEDS ORDERED: DULoxetine 30 MG CAP (CYMBALTA) PO SCH (21:00)
[2020-06-27] MEDS ORDERED: RAMELTEON 8 MG TAB (ROZEREM) PO PRN (21:00)
[2020-06-27] MEDS ORDERED: ALBUTEROL 90 MCG/ACT 8GM HFA INHALER INH PRN (21:00)
[2020-06-27 21:16] LABS: HEMOGLOBIN 15.6 g/dl (13.5-17.5); MEAN CORPUSCULAR HEMOGLOBIN 31.3 pg (27.0-33.0); MEAN CORPUSCULAR HGB CONC 32.5 g/dl (32.0-36.5); MEAN CORPUSCULAR VOLUME 96.4 fl (80.0-96.0); PLATELET COUNT, AUTOMATED 233 10^3/uL (150-450); RED BLOOD COUNT 4.98 10^6/uL (4.30-6.10); WHITE BLOOD COUNT 8.6 10^3/uL (4.0-10.0)
[2020-06-27] MEDS: PERCOCET 5MG/325MG TAB PO PRN (21:22)
[2020-06-27 21:47] LABS: ALBUMIN 3.8 GM/DL (3.2-5.2); ALT/SGPT 36 U/L (12-78); BILIRUBIN,TOTAL 0.7 MG/DL (0.2-1.0); BLOOD UREA NITROGEN 13 MG/DL (7-18); CALCIUM LEVEL 8.6 MG/DL (8.8-10.2); CARBON DIOXIDE LEVEL 31 MEQ/L (21-32); CHLORIDE LEVEL 102 MEQ/L (98-107); CREATININE FOR GFR 1.14 MG/DL (0.70-1.30); GLOMERULAR FILTRATION RATE > 60.0 (>49); GLUCOSE, FASTING 188 MG/DL (70-100); POTASSIUM SERUM 4.1 MEQ/L (3.5-5.1); SODIUM LEVEL 140 MEQ/L (136-145); TOTAL PROTEIN 7.3 GM/DL (6.4-8.2)
[2020-06-27 21:56] VITALS: BP 152/82
[2020-06-27] MEDS: GABAPENTIN 300 MG CAP PO SCH (23:20)
[2020-06-27] MEDS: DICLOFENAC EPOLAMINE 1.3 % PATCH TOP SCH (23:21)
[2020-06-28 04:05] VITALS: O2SAT 97
[2020-06-28] MEDS: GABAPENTIN 300 MG CAP PO SCH ×2 (05:04→13:54)
[2020-06-28 06:00] VITALS: BP 126/73
--- NOTE | 2020-06-28 07:36 | IPNPDOC ---
Text Note Date of Service The patient was seen on 06/28/20. VS,Estrella, I+O VS, Fishbone, I+O Laboratory Tests 06/27/20 21:04 Vital Signs Date Time Temp Pulse Resp B/P (MAP) Pulse Ox O2 Delivery O2 Flow Rate FiO2 06/28/20 06:00 98.2 58 20 126/73 (90) 98 Room Air 06/28/20 04:05 1.0 I&O- Last 24 Hours up to 6 AM 06/28/20 06:00 Intake Total 900 ml Balance 900 ml KEEGAN MENDIOLA M.D.,PGY-2 Jun 28, 2020 07:36
[2020-06-28 07:37] LABS: HEMATOCRIT 44.6 % (42.0-52.0); HEMOGLOBIN 14.9 g/dl (13.5-17.5); MEAN CORPUSCULAR HEMOGLOBIN 32.1 pg (27.0-33.0); MEAN CORPUSCULAR HGB CONC 33.4 g/dl (32.0-36.5); MEAN CORPUSCULAR VOLUME 96.1 fl (80.0-96.0); PLATELET COUNT, AUTOMATED 208 10^3/uL (150-450); RED BLOOD COUNT 4.64 10^6/uL (4.30-6.10); WHITE BLOOD COUNT 8.8 10^3/uL (4.0-10.0)
[2020-06-28 07:48] VITALS: BP 143/84
[2020-06-28] MEDS: DICLOFENAC EPOLAMINE 1.3 % PATCH TOP SCH (07:49)
[2020-06-28 08:07] LABS: BLOOD UREA NITROGEN 14 MG/DL (7-18); CALCIUM LEVEL 8.5 MG/DL (8.8-10.2); CARBON DIOXIDE LEVEL 31 MEQ/L (21-32); CHLORIDE LEVEL 103 MEQ/L (98-107); CREATININE FOR GFR 1.02 MG/DL (0.70-1.30); GLOMERULAR FILTRATION RATE > 60.0 (>49); GLUCOSE, FASTING 108 MG/DL (70-100); POTASSIUM SERUM 4.2 MEQ/L (3.5-5.1); SODIUM LEVEL 138 MEQ/L (136-145)
[2020-06-28] MEDS: TIOTROPIUM INHALER/CAPSULE (SPIRIVA) INH SCH ×2 (08:12→08:17)
[2020-06-28] MEDS ORDERED: VITAMIN D 1,000 INTERNATIONAL UNITS TABLET PO SCH (09:00)
[2020-06-28] MEDS ORDERED: CelecoXIB (CeleBREX) 100 MG CAP PO SCH (09:00)
[2020-06-28] MEDS ORDERED: MIRALAX *UNIT DOSE* 17GM PACKET PO SCH (09:00)
[2020-06-28] MEDS ORDERED: LOSARTAN 50MG TABLET PO SCH (09:00)
[2020-06-28] MEDS ORDERED: predniSONE 20 MG TAB PO SCH (09:00)
[2020-06-28] MEDS: PERCOCET 5MG/325MG TAB PO PRN (12:26)
--- NOTE | 2020-06-28 12:48 | DS.PDOC ---
Discharge Summary General Date of Admission Jun 27, 2020 at 18:44 Date of Discharge 06/28/2020 Discharge Summary PROCEDURES PERFORMED DURING STAY: None ADMITTING DIAGNOSES: 1. Acute on Chronic Lumbar radiculopathy DISCHARGE DIAGNOSES: 1. Acute on Chronic Lumbar radiculopathy COMPLICATIONS/CHIEF COMPLAINT: Spinal Stenosis Of Lumbar Region At Multiple Level. HISTORY OF PRESENT ILLNESS: This 64 yr old M presented w c/o acute worsening of his chronic right leg pain over the last 10 days. He describes the pain as 9/10 in severity and unbearable. The pain is sharp and shooting in nature at the right upper lateral part of the upper leg and burning in nature at the right lower part of the leg. He also has numbness at the lateral aspect of his right foot. Over the last 10 days he hasnt fallen, he denies having back pain, denies having urinary or fecal incontinence and denies having fevers or chills. He also came to the ER on Jun 24 w similar c/o and reported that he ran out of his gabapentin; he was discharged home with a 30 day dose of gabapentin and 12 tabs of Percocet. Today he came back because he had to take more of his meds than prescribed to control the pain and felt that he needed an MRI of the back. Per d/w Sarah Gonzalez the patient was seen by Dr. Trinh who recommended admi ssion for pain control. HOSPITAL COURSE: is a 64 yr old w a hx of Emphysema, HTN , IPF vs Interstitial Pneumonitis, Chronic Right sided Lumbar Radiculopathy and history of 2 back surgeries who presented w c/o of acute worsening of his right upper and lower lateral leg radiculopathy. He was admitted for pain management. During hospital stay, MRI was performed which continued to show herniation in L3/L4. Pain regimen titrated with the addition of flector patch, duloxetine and gabapentin increased to 600 TID. Prednisone 20 mg daily added and will be continued for 5 days. Finally, percocet was added for breakthrough pain. Pain was well controlled throughout hospital stay. Spoke with orthopedic surgeon Dr. Paredes who noted that this patient does not need to be admitted as there is nothing acute and may be discharged with follow up in orthopedic clinic. DISCHARGE MEDICATIONS: Please see below. ALLERGIES: Please see below. PHYSICAL EXAMINATION ON DISCHARGE: GENERAL: Looks well. Not in acute distress HEENT: RODOLFO. EOMI NECK: Supple. Non-tender CARDIOVASCULAR EXAMINATION: Heart sounds 1+2 normal with no added sounds, murmurs or regurg RESPIRATORY EXAMINATION: Chest clear to auscultation bilaterally. No wheezing/rales ABDOMINAL EXAMINATION: Soft and non-tender EXTREMITIES: Power 5/5 in all extremities. Sensation intact SKIN: No rashes seen. Left anterior and posterior chest wall with numerous chest tube scars seen NEUROLOGICAL EXAMINATION: AO x3. No FND LABORATORY DATA: Please see below. IMAGING: MRI Lumbar spine IMPRESSION: 1. Moderate multilevel degenerative c hanges causing variable degrees of spinal canal and neuroforaminal narrowing as described above. Right foraminal disc herniation at L3/4. Small extruded fragment that extends inferiorly and effaces the right lateral recess. Please see details above. 2. The urinary bladder is moderately distended. PROGNOSIS: Stable ACTIVITY: as tolerated DIET: regular diet DISCHARGE PLAN: To be discharged home with PRN pain medications and patient to follow up with PCP within 5 days of discharge and orthopedic surgeon for discussion of potential future elective surgery DISPOSITION: Home DISCHARGE INSTRUCTIONS: 1. Please follow up with your primary care provider within 5 days of discharge 2. Please follow up with your orthopedic doctor for discussion of elective surgery as an outpatient ITEMS TO FOLLOWUP ON ON OUTPATIENT: 1. Pain control DISCHARGE CONDITION: stable TIME SPENT ON DISCHARGE: Greater than 20 minutes. Vital Signs/I&Os Vital Signs Date Time Temp Pulse Resp B/P (MAP) Pulse Ox O2 Delivery O2 Flow Rate FiO2 06/28/20 12:26 20 06/28/20 07:48 143/84 06/28/20 06:00 98.2 58 98 Room Air 06/28/20 04:05 1.0 I&O- Last 24 Hours up to 6 AM 06/28/20 06:00 Intake Total 900 ml Balance 900 ml Laboratory Data Labs 24H Laboratory Tests 2 06/27/20 19:09: Coronavirus (COVID-19)(PCR) NEGATIVE 06/27/20 21:04: Nucleated Red Blood Cells % (auto) 0.0, Anion Gap 7L, Glomerular Filtration Rate > 60.0, Calcium Level 8.6L, Total Bilirubin 0.7, Aspartate Amino Transf (AST/SGOT) 22, Alanine Aminotransferase (ALT/SGPT) 36, Alkaline Phosphatase 116, Total Protein 7.3, Albumin 3.8, Albumin/Globulin Ratio 1.1 06/28/20 07:27: Nucleated Red Blood Cells % (auto) 0.0, Anion Gap 4L, Glomerular Filtration Rate > 60.0, Calcium Level 8.5L CBC/BMP Laboratory Tests 06/27/20 21:04 06/28/20 07:27 Discharge Medications Scheduled Acetylcarnitine (Acetyl l-Carnitine) 500 Mg Capsule, 1,000 MG PO DAILY, (Reported) Ascorbic Acid (Vitamin C) 500 Mg Capsule.er, 500 MG PO DAILY, (Reported) Celecoxib (Celebrex) 200 Mg Capsule, 200 MG PO DAILY, (Reported) Cholecalciferol (Vitamin D3) (Vitamin D3) 1,000 Unit Tablet, 5,000 UNITS PO DAILY, (Reported) Diclofenac Epolamine (Diclofenac Epolamine) 1 Each Patch.td12, 1 PATCH TOP Q12H for pain Duloxetine Hcl (Cymbalta) 30 Mg Capsule.dr, 30 MG PO QHS Gabapentin (Gabapentin) 600 Mg Tablet, 600 MG PO BID, (Reported) Gabapentin (Gabapentin) 300 Mg Capsule, 600 MG PO Q8H Losartan Potassium (Losartan Potassium) 100 Mg Tablet, 50 MG PO DAILY, (Reported) Magnesium Oxide (Magnesium Oxide) 500 Mg Capsule, 500 MG PO DAILY, (Reported) Multivitamin (Multivitamin) 1 Each Tablet, 1 EACH PO DAILY, (Reported) [place]-3/Dha/Epa/Fish Oil ([place] 3 500 Softgel) 1 Each Capsule, 1 CAP PO DAILY, (Reported) Polyethylene Glycol 3350 (Polyethylene Glycol 3350) 17 Gm Powd.pack, 1 PKT PO DAILY Prednisone (Prednisone) 20 Mg Tablet, 20 MG PO TAPER, (Reported) patient has bottle with him with taper directions Tiotropium [place] (Spiriva Respimat) 4 Gm Mist.inhal, 2 INHALATION INH DAILY, (Reported) Scheduled PRN Albuterol Sulfate (Proair Hfa) 8.5 Gm Hfa.aer.ad, 2 PUFF INH Q4H PRN for SHORTNESS OF BREATH, (Reported) Diazepam (Valium) 5 Mg Tab, 5 MG PO BID PRN for ANXIETY, (Reported) Allergies Coded Allergies: No Known Allergies (Unverified , 07/23/15) GME ATTESTATION GME ATTESTATION My faculty preceptor for this patient encounter was physically present during the encounter and was fully available. All aspects of the patient interview, examination, medical decision making process, and medical care plan development were reviewed and approved by the faculty preceptor. The faculty preceptor is aware and concurs with the plan as stated in the body of this note and will attest to such by his/her cosignature. ATTENDING NOTE IIngrid, have independently examined this patient and performed my own physical exam, as well as reviewed the documentation and edited where necessary. I have discussed in detail with the resident / student the findings and plan of treatment as documented by the resident / student and edited their note. I agree with their findings and treatment plan and have edited their documentation. I will continue to follow the patient during this hospital stay. KEEGAN MENDIOLA M.D.,PGY-2 Jun 28, 2020 12:48 MIKAYLA LOWE MD Jun 28, 2020 15:36
[2020-06-28] MEDS ORDERED: DICL1PAT6 TOP (15:04)
[2020-06-28] MEDS ORDERED: GABA-843 PO (15:04)
[2020-06-28] MEDS ORDERED: PEG1POW PO (15:04)
[2020-06-28] MEDS ORDERED: CYMB1CAP5 PO (15:04)
[2020-06-28] MEDS ORDERED: PERCOCET PO (15:04)
[2020-06-28] MEDS ORDERED: PERC5TAB12 PO (15:18)
--- NOTE | 2020-06-28 16:18 | CR ---
CONSULTATION DATE: 06/27/2020 CONSULTING SERVICE: Orthopedic Surgery CONSULTING PROVIDER: Azar Trinh M.D. REASON FOR CONSULTATION: Radiculopathy. HISTORY OF PRESENT ILLNESS: This is a 64-year-old male who presented to [facility] for a right tcimd-qs-phygzqf L-4/L5 disk herniation with L-5 radiculopathy. The patient presented with exacerbation of his L-5 radicular symptoms to the lateral aspect of his right leg. The patient previously presented on the June 24, 2020 for similar complaint. The patient presented to [facility] for issues with pain control regarding his right leg and radicular symptoms from his lumbar spine. Orthopedic Surgery was consulted for a cauda equina rule out. The patient did not have cauda equina as described below, however, he did have urxik-qt-dbmkgei L-5 radiculopathy given his L-4/L-5 paracentral disk herniation which was seen on MRI advanced imaging. PAST MEDICAL HISTORY: The patient's past medical history is significant for idiopathic pulmonary fibrosis. PAST SURGICAL HISTORY: The patient's past surgical history is significant for: 1. L-5/S-1 laminectomy in 1986 at [facility] for what the patient described cauda equina. 2. L-5/S-1 diskectomy. 3. Microdiskectomy in August [address] Dueñas in [place], [place]. 4. Left lung biopsy in [address] Smith for his idiopathic pulmonary fibrosis. ALLERGIES: None. MEDICATIONS: Please see E.R. medication reconciliation list. REVIEW OF SYSTEMS: A 14-point review of systems was negative unless otherwise described in the HPI above. PHYSICAL EXAMINATION: The patient was alert to person, time and place. BACK: Lumbar spine exam the patient had physical exam findings consistent with L-5 radicular symptoms. EXTREMITIES: The patient's right lower extremity exam which is neurovascularly intact. The patient had 4+/5 strength of the EHL, 5/5 strength of the FHL, tibialis anterior musculature and gastroc soleus complex musculature of the right lower extremity. The patient had 2+ dorsalis pedis and posterior tibial arterial pulse of the right lower extremity. The patient's left lower extremity the patient had 2+ dorsalis pedis and posterior tibial arterial pulse. He had 5/5 motor strength of the EHL, FHL, tib and gastroc perineal musculature. He had sensation intact to light touch to the deep and superficial perineal, sural, saphenous and tibial nerve distributions. His lumbar neurovascular examinations the patient did have level L-1/L-3 for the right side. He had sensation to the anterior thigh, 5/5 motor strength of the hip flexors. Level L-3/L-4 the patient had sensation intact of the medial calf. Motor strength which was 5/5 in the quadriceps and tibialis anterior and an intact knee jerk. L-4/5 the patient had paresthesias to the lateral calf and dorsal foot, 4/5 strength to the EDL and EHL, L-5/S-1 the patient sensation intact to the posterior calf and plantar foot and 5/5 motor strength of the gastrocnemius and soleus strength and intact ankle jerks and S-2/4 the patient had intact perianal sensation and no motor loss of the bowel or bladder for the right side. For the left side L-1/3 Intact sensation of the anterior thigh, motor 5/5 in the hip flexors. L-3/4 sensation intact to the medial calf. Motor strength is 5/5 in the quadriceps and tibialis anterior and intact knee jerks. L-4/5 sensation intact to the lateral calf and dorsal foot, 5/5 motor strength and EDL, EHL, L-5/S-1 sensation intact to light touch of the posterior calf and plantar foot, 5/5 motor strength in the gastrocnemius and soleus, intact ankle jerk in S-2/4 sensation intact to the perianal region, no loss of bowel or bladder or no incontinence. The patient denied any bilateral sensory or motor loss, denied lower extremity weakness. The patient had intact right and left straight leg raise. The patient denied saddle anesthesia and the patient denied incontinence. The patient had intact rectal tone. Regarding the patient's right lumbar spine, the patient had mild ankle inversion weakness. IMAGING DATA: The patient did not present with any recent radiographs of the lumbar spine, however he did undergo advanced imaging of the lumbar spine with an MRI of which there was an appreciated paracentral lumbar disk herniation at the L-4/L-5 region which may explain his right sided L-5 radiculopathy. This caused minimal stenosis to the cauda equina region. IMPRESSION: This 64-year-old male with suxqd-qk-vioshsi L-4/L-5 paracentral disk herniation which was exacerbating his right sided L-5 radiculopathy. PLAN: This patient has been seeing Dr. Maria at [facility] for his L-5 radiculopathy of which he is currently being treated. The patient did declare that this has been going on for a number of years, however has gotten worse within the last 10 days. This does not appear to be an acute cauda equina, rather an L-5 rcpjr-eo-kwochix radiculopathy secondary to his L-4/L-5 paracentral disk herniation which is appreciated on advanced MRI imaging. There were no further interventions at his current admission by Orthopedic Surgery. Whether the patient will be admitted for pain control was left up to the E.R. provider and Hospitalist. I do recommend the patient follow up with Dr. Kumar with [facility] for further consideration of surgical or non-surgical management given his wztol-il-tdldyox L-5 radicular symptoms. AYAAN
== END 2020-06-28 17:30 | disposition home or self-care (01) | DRG 347 ==
LOC: M ED 10:34 → M ED INP 18:44 → M MS5PR 21:51
PROVIDERS: ADMIT Internal Medicine; ATTEND Family Medicine
DX: M51.16 Intervertebral disc disorders with radiculopathy, lumbar region (principal); J84.112 Idiopathic pulmonary fibrosis; J43.9 Emphysema, unspecified; I10 Essential (primary) hypertension; M48.061 Spinal stenosis, lumbar region without neurogenic claudication; Z87.891 Personal history of nicotine dependence; Z79.52 Long term (current) use of systemic steroids; Z79.899 Other long term (current) drug therapy; Z20.828 Contact with and (suspected) exposure to other viral communicable diseases

== ENCOUNTER → 2020-07-31 | Outpatient (CLI) | payer BC ==
--- NOTE | 2020-07-29 09:54 | HPE ---
HISTORY AND PHYSICAL DATE OF ANTICIPATED ADMISSION: 07/31/2020 ATTENDING PHYSICIAN: Don Kumar MD CHIEF COMPLAINT: Very minimal back pain, severe pain down his right leg. HISTORY OF PRESENT ILLNESS: This is a 64-year-old male patient with progressively worsening back pain and pain down his right leg. He has very minimal back pain. Most of his symptoms are all related to his right leg. He has been through injections that failed to improve his treatments. He has also been on gabapentin and oxycodone, which he currently takes 10 mg and up to four times a day. He has had two prior surgeries, and when he was 30 he had a laminectomy done and a second laminectomy done approximately five years ago. The pain seems to be worse with weightbearing activities and activities of daily living. He has elected for surgery for his continued symptoms. He has been consented by Dr. Kumar for a right unilateral laminectomy at L3-L4 and unilateral pedicle screws at the right at L3 and L4 with posterior lateral fusion intertransverse at that level. X-rays of his lumbar spine are notable for degenerative changes at L3-L4 with a slight scoliotic curve of 5 degrees. There are degenerative changes at L2-L3, L3-L4, L4-L5 and L5-S1. There is a 4 mm listhesis at L3-L4. MRI also notable for a right-sided disk bulge at L3-L4 producing lateral recess spinal stenosis. Medical optimization pending by his primary. Not present for review today. ALLERGIES: No known drug allergies. CURRENT MEDICATIONS: - Oxycodone 10/6 150 mg every 6-8 hours as needed for pain - Losartan 100 mg one table once per day - Spiriva 2.5 mcg two puffs by mouth once per day - Albuterol rescue inhaler as needed He has discontinued his other medications. MEDICAL HISTORY: 1. Sleep apnea. 2. Chronic obstructive pulmonary disease (COPD). 3. Hypertension. 4. Lumbar spinal stenosis; pain down his right leg. SURGICAL HISTORY: 1. Previously discussed laminectomy which sounds like at L5-S1 and a second laminectomy at L4-L5. 2. Pleurodesis of the left lung. FAMILY HISTORY: Noncontributory. SOCIAL HISTORY: He is a former smoker. He occasionally uses alcohol. REVIEW OF SYSTEMS: He denies chest pain, shortness of breath, or cough. Denies difficulty breathing. Denies abdominal pain. Denies nausea or vomiting. Notes persistent pain in his right leg with weightbearing activities and activities of daily living. He notes very minimal back pain. Denies exposure to COVID-19. Denies any changes in bladder habits currently. PHYSICAL EXAMINATION: Today, reveals a well-nourished, well-developed male patient. He walks with a limping gait; favors his right side. The skin around the back is intact. No erythema, edema or ecchymosis. There is mild tenderness along the lumbar spine at L3-L4 without step offs or deviations. Deep tendon reflexes are 1 at the right knee, 2 at the left knee, 1 at both ankles. Straight leg raise testing was negative bilaterally. Lower extremities are intact to light touch. His lungs are clear to auscultation on the right side. There is decreased breath sounds diffusely through the left side consistent with his surgical history. Heart: Regular rate and rhythm. Abdomen: Bowel sounds are present. Neck: Supple without adenopathy or jugular venous distension (JVD). Height: 68 inches; weight 180 pounds, temperature 97.1, blood pressure 138/60, respirations 12, pulse 80. LABORATORY DATA: None present for review today. IMPRESSION: Symptomatic lumbar spinal stenosis at L3-L4 and dynamic retrolisthesis at L3-L4 with right lower extremity radiculopathy. PLAN: He has been consented by Dr. Kumar for a right unilateral laminectomy at L3-L4 and right intertransverse posterior lumbar fusion unilaterally with pedicle screws at L3-L4 to the right side. We will also use an iliac crest bone graft from either the right or left side. We discussed his preoperative and postoperative instructions. We went over the importance of being NPO after midnight and I have explained what NPO after midnight means. We discussed he needs to be on time for his appointment. He needs to call and clarify with Jennifer about his COVID testing as apparently he was told by Jennifer he needs to have the rapid test done on the day of admission. He also will call them one day prior to find out his appropriate time for arrival. He understands the restrictions of COVID currently and there are no visitors currently allowed in the hospital. His significant other will have to drop him off and then pick him up on the day of discharge. He will be fitted for the vested brace that was being fitted and approved; most likely will pick that up tomorrow. He knows to only take the medications as directed by his primary; understands to stop all non-steroidal anti-inflammatory drugs (NSAIDs) five days prior to surgery; and bring his CPAP machine and his back brace to the day of surgery. All of his questions are answered. Don Kumar MD
[~2020-07-31] VITALS: Ht 175.3 cm; Wt 79.8 kg
[~2020-07-31] MED LIST changes: +ACET500C8 PO; +ACETAMINOPHEN 1000MG 100ML IV BTL (OFIRMEV) (J0131 PER 10MG) As Ordered ONE; +BACITRACIN PWD 50,000 UNITS VIAL As Ordered ONE; +BUPIVACAINE LIPOSOME/PF 1.3% 20ML VIAL (13.3MG/ML)(EXPAREL)(C9290 PER1MG) As Ordered ONE; +COLA100C5 PO; +CYMB1CAP5 PO; +CelecoXIB (CeleBREX) 100 MG CAP PO ONE; +D31000TA2 PO; +DICL1PAT6 TOP; +DULC5TAB PO; +EPINEPHrine INJ 1 MG/ML 1ML AMP As Ordered ONE; +GABA-282 PO; +HYDROmorphone HCL 2 MG/ML 1ML VIAL (J1170) As Ordered ONE; +KETOROLAC 60MG 2ML VIAL As Ordered ONE; +LIDOCAINE 2% 100MG/5ML SDV (FOR ANES.) As Ordered ONE; +LR 1,000 ML IV ONE; +MAGN500C2 PO; +MIDAZOLAM INJ 2MG/2ML VIAL (J2250 PER 1MG) As Ordered ONE; +MILKSUS3 PO; +MULT-90 PO; +NEUR600T PO; +ONDANSETRON 4MG/2ML VIAL As Ordered ONE; +OXYC-1 PO; +PEG1POW PO; +PRED20TA PO; +PROAAER10 INH; +ROCURONIUM BROMIDE 50 MG/5 ML VIAL As Ordered ONE; +SPIR12.9 INH; +STIO1AER INH; +STRI1AER2 INH; +SUGAMMADEX SODIUM 500 MG/5 ML VIAL (BRIDION) As Ordered ONE; +THROMBIN SOLN 20,000 UNITS KIT As Ordered ONE; +TRANEXAMIC ACID 100 MG/ML 10ML VIAL As Ordered ONE; +TYLE650T38 PO; +VANCOMYCIN 500MG/10ML VIAL As Ordered ONE; +ceFAZolin SOD 1 GM in D5W MINI-BAG PLUS 50 ML IV ONE; +dexameTHASONE 4 MG/ML 1ML VIAL (J1100 PER 1MG) As Ordered ONE; +fentaNYL 100 MCG/2 ML INJECTION (J3010) As Ordered ONE; +propofoL 200 MG/20 ML VIAL As Ordered ONE; +qnasal NARES
--- OUTSIDE RECORDS SUMMARY | 2020-07-31 10:16 | CCD ---
Author Author [facility] er Organization [facility] er Address Unknown Phone Unavailable Care Team Providers Care Marine Equipment Research Engineer Name Role Phone Bhupinder Hansen Unavailable PROBLEMS Type Condition ICD9-CM Code [id number] Code Onset Dates Condition S tatus SNOMED Code Notes Problem Acute idiopathic gout, unspecified site M10.00 Active 54446332 Problem Essential hypertension I10 Active 74490283 Problem Arthritis M19.90 Active 7138837 Problem Sciatica of right side M54.31 Active 35638721 Problem Obstructive sleep apnea G47.33 Active 11100125 Problem 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 Active 730217246 Problem Idiopathic pulmonary fibrosis J84.112 Active 70 1836055 Problem Other chronic pain G89.29 Active 95024996 ALLERGIES No Known Allergies ENCOUNTERS from 1955 to 2020-07-20 Encounter Location Date Provider Diagnosis [address] [address] 08 n, 2020 Bhupinder Hansen Sciatica of right side M54.31 IMMUNIZATIONS Vaccine Route Administration Date Status Rosas Influenza (Fluarix 6+ months) Unknown Apr 20 14 Administered Zoster (Shingrix) Unknown Apr 22, 2019 Administered Pneumococcal (PPSV 23) 19 or > IM Intramuscular Apr 11, 2019 Administered Rosas Flu vaccine no Preserv 3 and > Unknown Apr 15 018 Administered Rosas Hep B, adult dosage for intramuscular use Unknown Jun 18, 1996 Administered Rosas Hep B, adult dosage for intramuscular use Unknown October 30, 2011 Administered Rosas Influenza (Fluarix 6+ months) Unknown Apr 18 14 Administered Influenza, seasonal unspecified Unknown Mar 28, 2019 Others Rosas Hep B, adult dosage, for intramuscular use Unknown October 16, 2005 Administered Rosas Hep B, adult dosage, for intramuscular use Unknown December 05, 1996 Administered Rosas Hep B, adult dosage, for intramuscular use Unknown September 09, 1996 Administered Rosas Hep A, adult Unknown September 09, 1996 Administere d Rosas Hep A, adult Unknown December 04, 1995 Administere d Kenalog Unknown Aug 01, 2018 Administered Kenalog Unknown Jul 19, 2018 Administered Influenza, seasonal unspecified IM Intramuscular May 14, 2019 Administered Rosas Tdap IM Intramuscular Mar 02, 2018 Administered Rosas Varicella Unknown September 28, 2010 Administered Rosas Polio Unknown September 13, 1994 Administered Rosas Flu vaccine no Preserv 3 and > Unknown September 28, 2010 Administered Rosas Meningococcal Menveo MCV40 (CVX 136) Unknown Aug 29, 2011 Administered Rosas MMR Unknown September 28, 2010 Administered Rosas Td (adult) preservative free Unknown September 03, 010 Administered Rosas Flu vaccine no Preserv 3 and > IM Intramuscular May 23, 2014 Administered Rosas Flu vaccine no Preserv 3 and > Unknown Jun 19, 015 Administered Rosas Flu vaccine no Preserv 3 and > Unknown May 23, 2 016 Administered SOCIAL HISTORY Tobacco Use: Social History Observation Description Date Details (start date - stop date) Former Smoker Sex Assigned At : Social History Observation Description Sex Assigned At Unknown Alcohol Screen (Audit-C) Question Answer Notes Did you have a drink containing alcohol in the past year? Ye s Points 3 Interpretation Negative How often did you have 6 or more drinks on one occasio n in the past year? Never (0 points) How many drinks did you have on a typica l day when you were drinking in the past year? 1 or 2 (0 points) How often did you have a drink containing alcohol in t he past year? Two to three times per week (3 points) DAST-10 Question Answer Notes Total Score: 0 Interpretation: No problems reported Tobacco Use/Smoking Question Answer Notes Patient is a former smoker How long has it been since you last smoked? > 10 years Tobacco use other than smoking: Question Answer Notes Are you an other tobacco user? No REASON FOR REFERRAL No Information VITAL SIGNS No information MEDICATIONS Medication SIG (Take, Route, Frequency, Duration) Notes Start Da te End Date Status Amlodipine Besylate 5 MG 1 tablet Orally Once a day for 90 days Active Senna 8.6 MG 2 tablets at bedtime as needed Orally Once a day for 30 day(s) Jun, Active Qnasl 80 MCG/ACT INSTILL 2 SPRAYS INTO EACH NOSTRIL ONCE A DAY for 90 Active Tussionex Pennkinetic ER 10-8 MG/5ML 5 ml as needed Or ally twice a day for 10 days Dec, Not-Taking Fish Oil 1000 MG 1 capsule Orally Once a day Active Celecoxib 200 MG 1 capsule with food Orally twice a day for 30 days Active Vitamin D Active Diazepam 10 MG 1 tablet as needed Orally Twice a day for 30 days Active Medrol 4 MG as directed Orally Daily for 6 days May, Not-Taking Oxycodone HCl 10 MG 1 tablet as needed Orally every 6 hrs, MDD # 4 for 14 days Jul, Active Gabapentin 600 MG 1 tablet Orally Three times a day as needed fo r 30 day(s) Aug, Active Stiolto Respimat 2.5-2.5 MCG/ACT 2 puffs Inhalation Once a day Active Levaquin 750 MG 1 tablet Orally Once a day for 10 day(s) 2 Dec, Not-Taking Lidocaine 5 % 1 patch remove after 12 hours Externally Once a day for 14 days Jun, Active Osteo Bi-Flex Adv Joint Shield Active Losartan Potassium 100 MG 1/2 tablet Orally Once a day for 90 days Active PredniSONE 50 MG 1 tablet Orally twice a day for 5 days May, Active PredniSONE 20 MG 2 tablets with food or milk, days 1-3, one tablet days 4-6 Orally Daily for 6 days Jul, Not-Taki ng Acetaminophen Active Spiriva Respimat 3.125 ug/1 2 inhalations Oral / Inhalation Jarred y for 90 days Jun, Active Multivitamin Adults - Orally Act thea Celebrex 200 MG 1 capsule with food Orally Once a day for 90 day s May, Active PROCEDURES No Information RESULTS No Results REASON FOR VISIT MEDS, Istop Reference #: [id number] MEDICAL (GENERAL) HISTORY Type Description Date Medical History HTN (hypertension) Medical History sleep apnea Medical History menieres disease Medical History Gout involving toe, unspecif ied cause, unspecified chronicity, unspecified laterality Surgical History lumbar laminectomy 1988 Surgical History ganglion cyst-R wrist 1994 Surgical History laminectomy 08/2015 Surgical History pneumothorax 1975 Hospitalization History see surgical history Goals Section No Information Health Concerns No Information MEDICAL EQUIPMENT No Information MENTAL STATUS No Information FUNCTIONAL STATUS No Information ASSESSMENTS Encounter Date Diagnosis Assessment Notes Treatment Notes Treatm ent Clinical Notes Jul, Sciatica of right side (ICD-10 - M54.31) Patient with planned surgery within the next 2 weeks PLAN OF TREATMENT Medication Medication Name Sig Start Date Stop Date Oxycodone HCl 10 MG 1 tablet as needed Orally every 6 hrs, M DD #4 for 14 days Jul, Treatment Notes Assessment Notes Clinical Notes Sciatica of right side Patient with plan bubba surgery within the next 2 weeks Next Appt Details As planned Reason: Insurance Providers Payer Name Payer Address Payer Phone Insured Name Patient Relati onship to Insured Coverage Start Date Coverage End Date Blue [employer] [address] [address] [facility] [address] [place],[facility] [id number] 2015
--- OUTSIDE RECORDS SUMMARY | 2020-07-31 10:16 | CCD ---
Author Author [facility]iel [facility] er Organization [facility] er Address Unknown Phone Unavailable Care Team Providers Care Tree Expert Name Role Phone Bhupinder Hansen Unavailable PROBLEMS Type Condition ICD9-CM Code [id number] Code Onset Dates Condition S tatus SNOMED Code Notes Problem Acute idiopathic gout, unspecified site M10.00 Active 48091681 Problem Essential hypertension I10 Active 55609779 Problem Arthritis M19.90 Active 6156260 Problem Sciatica of right side M54.31 Active 33258574 Problem Obstructive sleep apnea G47.33 Active 00622506 Problem 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 Active 907174554 Problem Idiopathic pulmonary fibrosis J84.112 Active 70 3744953 Problem Other chronic pain G89.29 Active 05602955 ALLERGIES No Known Allergies ENCOUNTERS from 1955 to 2020-07-23 Encounter Location Date Provider Diagnosis [address] [address] 20 Ja n, 2020 Bhupinder Hansen Sciatica of right side M54.31 IMMUNIZATIONS Vaccine Route Administration Date Status Orsas Influenza (Fluarix 6+ months) Unknown Apr 20 [...] Notes Start Da te End Date Status Fish Oil 1000 MG 1 capsule Orally Once a day Active Amlodipine Besylate 5 MG 1 tablet Orally Once a day for 90 days Active Vitamin D Active Stiolto Respimat 2.5-2.5 MCG/ACT 2 puffs Inhalation Once a day Active Qnasl 80 MCG/ACT INSTILL 2 SPRAYS INTO EACH NOSTRIL ONCE A DAY for 90 Active Levaquin 750 MG 1 tablet Orally Once a day for 10 day(s) 2 9 Dec, 2018 Not-Taking PredniSONE 20 MG 2 tablets with food or milk, days 1-3, one tablet days 4-6 Orally Daily for 6 days Jul, Not-Taki ng Medrol 4 MG as directed Orally Daily for 6 days May, Not-Taking Celecoxib 200 MG 1 capsule with food Orally twice a day for 30 days Active Diazepam 10 MG 1 tablet as needed Orally Twice a day for 30 days Active PredniSONE 50 MG 1 tablet Orally twice a day for 5 days May, Active Gabapentin 600 MG 1 tablet Orally Three times a day as needed fo r 30 day(s) Aug, Active Multivitamin Adults - Orally Act thea Celebrex 200 MG 1 capsule with food Orally Once a day for 90 day s May, Active Acetaminophen Active Tussionex Pennkinetic ER 10-8 MG/5ML 5 ml as needed Or ally twice a day for 10 days Dec, Not-Taking Lidocaine 5 % 1 patch remove after 12 hours Externally Once a day for 14 days Jun, Active Osteo Bi-Flex Adv Joint Shield Active Oxycodone HCl 10 MG 1 tablet as needed Orally every 6 hrs, MDD # 4 for 14 days Jul, Active Spiriva Respimat 3.125 ug/1 2 inhalations Oral / Inhalation Jarred y for 90 days Jun, Active Losartan Potassium 100 MG 1/2 tablet Orally Once a day for 90 days Active Senna 8.6 MG 2 tablets at bedtime as needed Orally Once a day for 30 day(s) Jun, Active PROCEDURES No Information RESULTS No Results REASON FOR VISIT refill MEDICAL (GENERAL) HISTORY Type Description Date Medical [...] Sciatica of right side (ICD-10 - M54.31) PLAN OF TREATMENT Medication Medication Name Sig Start Date Stop Date Oxycodone HCl 10 MG 1 tablet as needed Orally every 6 hrs, M DD #4 for 14 days Jul, Next Appt Details Provider Name:Bhupinder Hansen, 2020-07-27 1 1:00:00 AM, [address] [place] [address], [id number], Insurance Providers Payer Name Payer Address Payer Phone Insured Name Patient Relati onship to Insured Coverage Start Date Coverage End Date [employer] [address] [address] [facility] [address] [place] [id number] 2015
--- OUTSIDE RECORDS SUMMARY | 2020-07-31 10:16 | CCD ---
Author Author Venancio [facility] er Organization [facility]ancio [facility] er Address Unknown Phone Unavailable Care Team Providers Care Mantel Craftsman Name Role Phone Charlotte Smith Unavailable PROBLEMS Type Condition ICD9-CM Code [id number] Code Onset Dates Condition S tatus SNOMED Code Notes Problem Acute idiopathic gout, unspecified site M10.00 Active 35963832 Problem Essential hypertension I10 Active 67408664 Problem Arthritis M19.90 Active 9155604 Problem Sciatica of right side M54.31 Active 06872099 Problem Obstructive sleep apnea G47.33 Active 30152359 Problem 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 Active 072967131 Problem Idiopathic pulmonary fibrosis J84.112 Active 70 5933772 Problem Other chronic pain G89.29 Active 81270540 ALLERGIES No Known Allergies ENCOUNTERS from 1955 to 2020-07-29 Encounter Location [place] [address] 24 2019 Charlotte Smith Sciatica of right side M54.31 IMMUNIZATIONS Vaccine [...] Notes Start Da te End Date Status Losartan Potassium 100 MG 1/2 tablet Orally Once a day for 90 days Active Multivitamin Adults - Orally Act thea Tussionex Pennkinetic ER 10-8 MG/5ML 5 ml as needed Or ally twice a day for 10 days Dec, Not-Taking Osteo Bi-Flex Adv Joint Shield Active Celecoxib 200 MG 1 capsule with food Orally twice a day for 30 days Active PredniSONE 50 MG 1 tablet Orally twice a day for 5 days May, Not-Taking Oxycodone HCl 10 MG 1 tablet as needed Orally every 6 hrs, MDD # 4 for 14 days Jul, Active PredniSONE 20 MG 2 tablets with food or milk, days 1-3, one tablet days 4-6 Orally Daily for 6 days Jul, Not-Taki ng Celebrex 200 MG 1 capsule with food Orally Once a day for 90 day s May, Active Amlodipine Besylate 5 MG 1 tablet Orally Once a day for 90 days Active Vitamin D Active Gabapentin 600 MG 1 tablet Orally Three times a day as needed fo r 30 day(s) Aug, Active Senna 8.6 MG 2 tablets at bedtime as needed Orally Once a day for 30 day(s) Jun, Active Fish Oil 1000 MG 1 capsule Orally Once a day Active Levaquin 750 MG 1 tablet Orally Once a day for 10 day(s) 2 Dec, Not-Taking Lidocaine 5 % 1 patch remove after 12 hours Externally Once a day for 14 days Jun, Active Acetaminophen Active Diazepam 10 MG 1 tablet as needed Orally Twice a day for 30 days Active Medrol 4 MG as directed Orally Daily for 6 days May, Not-Taking Spiriva Respimat 3.125 ug/1 2 inhalations Oral / Inhalation Jarred y for 90 days Jun, Active Stiolto Respimat 2.5-2.5 MCG/ACT 2 puffs Inhalation Once a day Active Qnasl 80 MCG/ACT INSTILL 2 SPRAYS INTO EACH NOSTRIL ONCE A DAY for 90 Active PROCEDURES No Information RESULTS No Results REASON FOR VISIT BACK/ LEG PAIN MEDICAL (GENERAL) HISTORY Type Description Date Medical History HTN (hypertension) Medical History sleep apnea Medical History menieres disease Medical History Gout involving toe, unspecif ied cause, unspecified chronicity, unspecified laterality Surgical History lumbar laminectomy 1988 Surgical History ganglion cyst-R wrist 1994 Surgical History laminectomy 08/2015 Surgical History pneumothorax 1975 Surgical History bullectomy 01/2019 Hospitalization History see surgical history Goals Section No Information Health Concerns No Information MEDICAL EQUIPMENT No Information MENTAL STATUS No Information FUNCTIONAL STATUS No Information ASSESSMENTS Encounter Date Diagnosis Assessment Notes Treatment Notes Treatm ent Clinical Notes Jun, Sciatica of right side (ICD-10 - M54.31) We will do a burst dose of prednisone to see if this will improve his pain. I have advised him I will provide him with a short course of oxycodone. He will follow-up with Dr. Kumar as planned PLAN OF TREATMENT Medication Medication Name Sig Start Date Stop Date Oxycodone HCl 10 MG 1 tablet as needed Orally every 6 hrs, M DD #4 for 14 days Jul, Treatment Notes Assessment Notes Clinical Notes Sciatica of right side We will do a burs t dose of prednisone to see if this will improve his pain. I have advised him I will provide him with a short course of oxycodone. He will follow-up with Dr. Kumar as planned Insurance Providers Payer Name Payer Address Payer Phone Insured Name Patient Relati onship to Insured Coverage Start Date Coverage End Date [facility] [address] [address] [facility] [address] [place],[facility] [id number] 2015
--- OUTSIDE RECORDS SUMMARY | 2020-07-31 10:16 | CCD | Continuity of Care Document ---
Author Author Gilbert DONNELLY P.A . Organization Unknown Address [address] [place] [address], [facility] [address] [place] [address] Phone [phone] Care Team Providers Care Mushroom Picker Name Role Phone Mirza Leija RPA AUTM [phone] Don Kumar MD AUTM [phone] Charlotte Smith [facility] AUTM [phone] Problems Active Problems Provider Date Essential hypertension Jayna Ruiz MD Onset: 019 Social History Type Date Description Comments Sex Unknown ETOH Use Rarely consumes alcohol Tobacco Use Start: Unknown End: Unknown Patient is a former smoker Allergies, Adverse Reactions, Alerts Description No Known Drug Allergies Medications Active Medications SIG Qnty Indications Ordering Provide r Date Hibiclens 4% Liquid use in shower once daily for 5 days before surgery 1units Don Kumar MD 07/23/2020 Mupirocin 2% Ointment apply a pea sized amount to the nasal passages 3 times a day for 5 days prior to surgery 22gm Don Kumar MD 07/23/2020 Gabapentin 600mg Tablets 1 qi d 180tabs Don Kumar MD 07/08/2020 Celebrex 200mg Capsules 2 po daily for 5 days then once a day 30caps Don Kumar MD 07/08/19 21 Losartan Potassium 100mg Tablets Charlotte Smith BEAN PICKER Striverdi Respimat 2.5mcg/Act Aerosol Chang Lui MD Fluticasone Propionate 50mcg/Act Suspension Chang Lui MD Chlorhexidine Gluconate 0.12% Solution Chang Lui MD Azelastine HCL (Nasal) 0.1% Solution Chang Lui MD Qnasl 80mcg/Act Aerosol Chang Lui MD Diazepam 10mg Tablets Chang Lui MD Stiolto Respimat 2.5-2.5mcg/Act Ae rosol Inhale Two Puffs By Mouth Every Day Unknown Spiriva Respimat 2.5mcg/Act Aeroso l Inhale 2 Puffs By Mouth Once Aday Unknown Boostrix 5-2.5-18.5LF-mcg/0.5 Susp ension Aquilino Bond MD Prevnar 13 Suspension Aquilino Bond MD Ondansetron HCL 8mg Tablets Unknown Ibuprofen 600mg Tablets Unknown Colchicine 0.6mg Tablets Unknown Ofev 150mg Capsules Mikaela Lakhani MD Albuterol Sulfate HFA 108(90Base) mcg/Act Aerosol Inhale 1 puff By Mouth Every 6 Hours as Needed Unknown Gabapentin 600mg Tablets Mirza Alvarez FNP Oxycodone-Acetaminophen 5-325mg Tablets Charlotte Smith FNP Prednisone 20mg Tablets Take 2 Tablets By Mouth Every Day For 3 Days Then Take 1 Tablet Every Day For 3 Days Take With Food Or Milk Unknown Polyethylene Glycol 3350 17gm Pack et Mix One Packet In Fluid And Drink Once Daily Unknown Duloxetine HCL 30mg Caps DR Part Take One Capsule By Mouth AT Bedtime Unknown Oxycodone HCL 5mg Tablets Mirza Charles MD Acetaminophen ER 650mg Tablets ER Take One Tablet By Mouth Every 8 Hours as Needed For Pain For Up To 10 Days Unknown Hayden 3 1000mg Capsules Unknown Vitamin C 1000mg Tablets 1 by mouth every day Unknown Osteo Bi-Flex Regular Strength 250-200mg Tablets Unknown Multi Vitamin Tablets 2 ever y day Unknown Celebrex 200mg Capsules 1 by mouth every day with food, may increase to twice a day as needed Unknown Amlodipine Besylate 5mg Tablets Unknown Micardis 40mg Tablets Unknown Immunizations Description No Information Available Vital Signs Date Vital Result Comment 07/27/2020 4:55pm BP Systolic 138 mmHg BP Diastolic 60 mmHg Heart Rate 80 /min Body Temperature 97.1 F Height 68 inches 5'8" Weight 180.25 lb BMI (Body Mass Index) 27.4 kg/m2 Respiratory Rate 12 /min 07/08/2020 11:39am Body Temperature 97.7 F Height 69.5 inches 5'9.50" Weight 170.00 lb BMI (Body Mass Index) 24.7 kg/m2 Results Test Acquired Date Facility Test Result H/L Range Note Order 07/23/2020 [facility] <pending> Laboratory test finding 06/24/2020 [facility] [address] [place] [address] (315)- - Coronavirus 2019 Nasopharygeal This nucleic aci <SEE NOTE> 1 Laboratory test finding 04/22/2020 [facility] [address] [place] [address] (315)- - Coronavirus 2019 Nasopharygeal This nucleic aci <SEE NOTE> 2 1 This nucleic acid amplificat ion test was developed and its performance characteristics determined by [facility]. Nucleic acid amplification tests include PCR and TMA. This test has not been FDA cleared or approved. This test has been authorized by FDA under an Emergency Use Authorization (EUA). This test is only authorized for the duration of time the declaration that circumstances exist justifying the authorization of the emergency use of in vitro diagnostic tests for detection of SARS-CoV-2 virus and/or diagnosis of COVID-19 infection under section 564(b)(1) of the Act, 21 U.S.C. 360bbb-3 (b) (1), unless the authorization is terminated or revoked sooner. When diagnostic testing is negative, the possibility of a false negative result should be considered in the context of a patient's recent exposures and the presence of clinical signs and symptoms consistent with COVID-19. An individual without symptoms of COVID-19 and who is not shedding SARS-CoV-2 virus would expect to have a negative (not detected) result in this assay. Performed at: [facility] [address] [facility], [place], [place] [id number] Linen Sorter: Angela Lee PhD, Phone: [phone] Not Detected 2 This nucleic acid amplificat ion test was developed and its performance characteristics determined by [facility]. Nucleic acid amplification tests include PCR and TMA. This test has not been FDA cleared or approved. This test has been authorized by FDA under an Emergency Use Authorization (EUA). This test is only authorized for the duration of time the declaration that circumstances exist justifying the authorization of the emergency use of in vitro diagnostic tests for detection of SARS-CoV-2 virus and/or diagnosis of COVID-19 infection under section 564(b)(1) of the Act, 21 U.S.C. 360bbb-3 (b) (1), unless the authorization is terminated or revoked sooner. When diagnostic testing is negative, the possibility of a false negative result should be considered in the context of a patient's recent exposures and the presence of clinical signs and symptoms consistent with COVID-19. An individual without symptoms of COVID-19 and who is not shedding SARS-CoV-2 virus would expect to have a negative (not detected) result in this assay. Performed at: [address] [id number] Linen Sorter: Naa Livingston MD, Phone: [phone] Not Detected Procedures Date Code Description Status 07/08/2020 92269 X-Ray Spine Lumbosacral Complete Inc Bending Views Min Of 6 Completed 06/29/2020 56192 Moderate Sedation Se rvices; Same Phys Intl 15 Mins; PT >= 5 Years Completed 06/29/2020 19582 Epidurography Radiological Super vision & Interpretation Completed 06/29/2020 19694 Injec Anesthetic Age nt/Steroid Trans Epidural Lumb/Sacral Ea Addl Completed 06/29/2020 88660 Injec Anesthetic Age nt/Steroid Trans Epidural Lumb/Sacral Single Completed 06/04/2020 85148 X-Ray Foot Complete Completed 06/04/2020 37753 X-Ray Ankle Complete Completed 04/27/2020 09794 Moderate Sedation Se rvices; Same Phys Intl 15 Mins; PT >= 5 Years Completed 04/27/2020 00530 Epidurography Radiological Super vision & Interpretation Completed 04/27/2020 75662 Injec Anesthetic Age nt/Steroid Trans Epidural Lumb/Sacral Ea Addl Completed 04/27/2020 60905 Injec Anesthetic Age nt/Steroid Trans Epidural Lumb/Sacral Single Completed Medical Devices Description No Information Available Encounters Type Date Location Provider Dx Diagnosis Office Visit 07/08/2020 10:00a [facility] [place] Kumar MD M51.26 Other intervertebral disc displacement, lumbar region M48.062 Spinal stenosis, lumbar gricelda on with neurogenic claudication M43.16 Spondylolisthesis, lumbar re gion Office Visit 06/27/2020 12:39p [facility] [place] Nichole MD M51. 16 Intervertebral disc disorders w radiculopathy, lumbar region Office Visit 06/04/2020 2:15p [facility] [place] Ruiz MD M21. 41 Flat foot [pes planus] (acquired), right foot M19.071 Primary osteoarthritis, righ t ankle and foot Office Visit 05/12/2020 10:00a RICARDO Corey M47.817 Spondyls w/o myelopathy or radiculopathy, lumbosacr region M51.37 Other intervertebral disc de generation, lumbosacral region M48.061 Spinal stenosis, lumbar gricelda on without neurogenic betty M51.27 Other intervertebral disc di splacement, lumbosacral region M43.16 Spondylolisthesis, lumbar re gion Office Visit 04/01/2020 10:30a RICARDO Corey M47.817 Spondyls w/o myelopathy or radiculopathy, lumbosacr region M51.37 Other intervertebral disc de generation, lumbosacral region M51.27 Other intervertebral disc di splacement, lumbosacral region M43.16 Spondylolisthesis, lumbar re gion M48.061 Spinal stenosis, lumbar gricelda on without neurogenic betty Office Visit 02/03/2020 10:15a RICARDO Corey M47.817 Spondyls w/o myelopathy or radiculopathy, lumbosacr region M51.37 Other intervertebral disc de generation, lumbosacral region M51.27 Other intervertebral disc di splacement, lumbosacral region M43.16 Spondylolisthesis, lumbar re gion M48.061 Spinal stenosis, lumbar gricelda on without neurogenic betty Assessments Date Code Description Provider 07/27/2020 Z01.818 Encounter for other preprocedura l examination Jak Donnelly, P.A. 07/27/2020 M51.26 Other intervertebral disc displa cement, lumbar region Jak Donnelly, P.A. 07/27/2020 M48.062 Spinal stenosis, lumbar region w ith neurogenic claudication Jak Donnelly, P.A. 07/27/2020 M43.16 Spondylolisthesis, lumbar region Jak Donnelly, P.A. 07/08/2020 M51.26 Other intervertebral disc displa cement, lumbar region Don Kumar MD 07/08/2020 M48.062 Spinal stenosis, lumbar region w ith neurogenic claudication Don Kumar MD 07/08/2020 M43.16 Spondylolisthesis, lumbar region Don Kumar MD 06/29/2020 M51.26 Other intervertebral disc displa cement, lumbar region Fortino Galicia MD 06/29/2020 M48.061 Spinal stenosis, lum bar region without neurogenic claudication Fortino Galicia MD 06/27/2020 M51.16 Intervertebral disc disorders with radiculopathy, lumbar region Alex Nichole MD 06/04/2020 M21.41 Flat foot [pes planus] (acquired ), right foot Jayna Ruiz MD 06/04/2020 M21.41 Flat foot [pes planus] (acquired ), right foot Jayna Ruiz MD 06/04/2020 M19.071 Primary osteoarthritis, right an kle and foot Jayna Ruiz MD 05/12/2020 M47.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, lumbosacral region RICARDO Laboy 05/12/2020 M51.37 Other intervertebral disc degene ration, lumbosacral region Max Lemosna, PA 05/12/2020 M48.061 Spinal stenosis, lum bar region without neurogenic claudication Max Lemosna, PA 05/12/2020 M51.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, lumbosacral region Max Lemosna, PA 05/12/2020 M43.16 Spondylolisthesis, lumbar region Max Lemosna, PA 04/27/2020 M51.26 Other intervertebral disc displa cement, lumbar region Fortino Galicia MD 04/27/2020 M48.061 Spinal stenosis, lum bar region without neurogenic claudication Fortino Galicia MD 04/01/2020 M47.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, lumbosacral region Max Kowalski, PA 04/01/2020 M51.37 Other intervertebral disc degene ration, lumbosacral region Max Lemosna, PA 04/01/2020 M51.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, lumbosacral region Max Lemosna, PA 04/01/2020 M43.16 Spondylolisthesis, lumbar region Max Lemosna, PA 04/01/2020 M48.061 Spinal stenosis, lum bar region without neurogenic claudication Max Kowalski, PA 02/03/2020 M47.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, lumbosacral region Max Kowalski, PA 02/03/2020 M51.37 Other intervertebral disc degene ration, lumbosacral region Max Lemosna, PA 02/03/2020 M51.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, lumbosacral region Max Lemosna, PA 02/03/2020 M43.16 Spondylolisthesis, lumbar region Max Lemosna, PA 02/03/2020 M48.061 Spinal stenosis, lum bar region without neurogenic claudication Max M Meghana PA Plan of Treatment Future Appointment(s):* 08/11/2020 3:45 pm - Don Kumar MD at [place] * 07/31/2020 7:30 am - Anastasiia Burnett at Surgery [facility] * 07/31/2020 7:30 am - Don Kumar MD at Surgery [facility] Inpatient 07/08/2020 - Don Kumar MD* M51.26 Other intervertebral disc displacement, lumbar region* Follow up:* post op * M48.062 Spinal stenosis, lumbar region with neurogenic claudication * M43.16 Spondylolisthesis, lumbar region * All * New Medication:* Gabapentin 600 mg - 1 qid * Celebrex 200 mg - 2 po daily for 5 days then once a day Functional Status Description No Information Available Mental Status Description No Information Available Referrals Refer to Reason for Referral Status Appt Date Alex Nichole MD SURGERY PER [facility] AT [facility] APPROVAL FOR 3 DAY STAY FOR LS-SPINE SURGERY ([id number], [id number], [id number]) CODE [id number] NO AUTH REQUIRED TO SURGERY NT Created [address] [place] [address] [phone] Fortino Galicia MD [facility]([id number], [id number]) PER [facility] ARE APPROVED [id number] AND [id number] NO AUTH REQUIRED TO SURGERY NT// CALLED BACK AND HAD 66205 ADDED PER VINEET Silva AT [facility] THIS IS APPROVEDNT Created [address] [place] [address], [address] [address] [phone] Jayna Ruiz MD [facility] PER WEB NO AUTH REQUIRED 1999.00 HAS BEEN MET. 20 % COIN. AND THEY ARE ALLOWED 1 A YEAR. LS Created [address] [place] [address] [phone] Fortino Galicia MD [facility]([id number], AND 65012) PER [facility] HAVE FELIPA APPROVED AND CODES([id number] AND 96996) NO AUTH REQUIRED TO SURGERY NT Created [address] [place] [address], [address] [address] [phone]
--- OUTSIDE RECORDS SUMMARY | 2020-07-31 10:16 | CCD | Continuity of Care Document ---
Author Author Gilbert GANDARA MD Organization Unknown Address [address] [address] Phone [phone] Care Team Providers Care Patient Financial Coordinator Name Role Phone Lucas Leija RPA AUTM [phone] Don Gandara MD AUTM [phone] Charlotte Smith [facility] AUTM [phone] Problems Active Problems Provider Date Essential hypertension Jayna Ruiz MD Onset: 019 Social History Type Date Description Comments Sex Unknown ETOH Use Rarely consumes alcohol Tobacco Use Start: Unknown End: Unknown Patient is a former smoker Allergies, Adverse Reactions, Alerts Description No Known Drug Allergies Medications Active Medications SIG Qnty Indications Ordering Provide r Date Gabapentin 600mg Tablets 1 qi d 180tabs Don Gandara MD 07/08/2020 Celebrex 200mg Capsules 2 po daily for 5 days then once a day 30caps Don Gandara MD 07/08/19 21 Losartan Potassium 100mg Tablets Charlotte Smith [facility] [employer] Respimat 2.5mcg/Act Aerosol Chang Lui MD [...] Hours as Needed Unknown Gabapentin 600mg Tablets Lucas Alvarez FNP Oxycodone-Acetaminophen 5-325mg Tablets Charlotte Smith [...] AT Bedtime Unknown Oxycodone HCL 5mg Tablets Lucas Charles MD Acetaminophen ER 650mg Tablets ER Take One Tablet By Mouth Every 8 Hours as Needed For Pain For Up To 10 Days Unknown [place] 3 1000mg Capsules Unknown Vitamin C 1000mg [...] Available Vital Signs Date Vital Result Comment 07/08/2020 11:39am Body Temperature 97.7 F Height 69.5 inches 5'9.50" Weight 170.00 lb BMI (Body Mass Index) 24.7 kg/m2 05/12/2020 10:01am Body Temperature 97.3 F Results Test Acquired Date Facility Test Result H/L Range Note Laboratory test finding 06/24/2020 [facility] [address] [place] [address] (315)- - Coronavirus 2019 Nasopharygeal This nucleic aci <SEE NOTE> 1 Laboratory test finding 04/22/2020 [facility] [address] [place] [address] (315)- - Coronavirus 2019 Nasopharygeal This nucleic aci <SEE NOTE> 2 Laboratory test finding 01/09/2020 [facility] [address] [place] [address] (315)- - Coronavirus 2019 Nasopharygeal Testing was perf <SEE NOTE> 3 1 This nucleic acid amplificat ion test was developed and its performance characteristics determined by [facility]. Nucleic acid amplification tests include PCR and [...] detected) result in this assay. Performed at: [facility] [address], [place], [place] [id number] Vice Principal: Angela Lee PhD, Phone: [phone] Not Detected 2 This nucleic acid amplificat ion test was developed and its performance characteristics determined by [facility]. Nucleic acid amplification tests include PCR and [...] detected) result in this assay. Performed at: [address] [id number] Vice Principal: Naa Livingston MD, Phone: [phone] Not Detected 3 Testing was performed using the geneva(R) SARS-CoV-2 test. This test was developed and its performance characteristics determined by [facility]. This test has not been FDA cleared [...] section 564(b)(1) of the Act, 21 U.S.C. 360bbb-3(b)(1), unless the authorization is terminated or revoked [...] detected) result in this assay. Performed at: [address] [place] [id number] Vice Principal: Naa Livingston MD, Phone: [phone] Not Detected Procedures Date Code Description Status 07/08/2020 37410 X-Ray Spine Lumbosacral Complete Inc Bending Views Min Of 6 Completed 06/29/2020 54968 Moderate Sedation Se rvices; Same Phys Intl 15 Mins; PT >= 5 Years Completed 06/29/2020 49023 Epidurography Radiological Super vision & Interpretation Completed 06/29/2020 85732 Injec Anesthetic Age nt/Steroid Trans Epidural Lumb/Sacral Ea Addl Completed 06/29/2020 94971 Injec Anesthetic Age nt/Steroid Trans Epidural Lumb/Sacral Single Completed 06/04/2020 33608 X-Ray Foot Complete Completed 06/04/2020 10001 X-Ray Ankle Complete Completed 04/27/2020 30612 Moderate Sedation Se rvices; Same Phys Intl 15 Mins; PT >= 5 Years Completed 04/27/2020 89028 Epidurography Radiological Super vision & Interpretation Completed 04/27/2020 37555 Injec Anesthetic Age nt/Steroid Trans Epidural Lumb/Sacral Ea Addl Completed 04/27/2020 92745 Injec Anesthetic Age nt/Steroid Trans Epidural Lumb/Sacral Single Completed 01/13/2020 93097 Moderate Sedation Se rvices; Same Phys Intl 15 Mins; PT >= 5 Years Completed 01/13/2020 99835 Epidurography Radiological Super vision & Interpretation Completed 01/13/2020 10686 Injec Anesthetic Age nt/Steroid Trans Epidural Lumb/Sacral Ea Addl Completed 01/13/2020 59020 Injec Anesthetic Age nt/Steroid Trans Epidural Lumb/Sacral Single Completed Medical Devices Description No Information Available Encounters Type Date Location Provider Dx Diagnosis Office Visit 06/04/2020 2:15p Niya Ruiz MD M21. 41 Flat foot [pes [...] without neurogenic betty Office Visit 02/03/2020 10:15a JudaRICARDO Ortega M47.817 Spondyls w/o myelopathy or radiculopathy, lumbosacr region M51.37 Other intervertebral disc de generation, lumbosacral region M51.27 Other intervertebral disc di splacement, lumbosacral region M43.16 Spondylolisthesis, lumbar re gion M48.061 Spinal stenosis, lumbar gricelda on without neurogenic betty Assessments Date Code Description Provider 07/08/2020 M51.26 Other intervertebral disc displa cement, lumbar region Don Gandara MD 07/08/2020 M48.061 Spinal stenosis, lum bar region without neurogenic claudication Don Gandara MD 06/29/2020 M51.26 Other intervertebral disc displa cement, lumbar region Fortino Galicia MD 06/29/2020 M48.061 Spinal stenosis, lum bar region without neurogenic claudication Fortino Galicia MD 06/04/2020 M21.41 Flat foot [pes planus] (acquired ), right foot Jayna Ruiz MD 06/04/2020 M21.41 Flat foot [pes planus] (acquired ), right foot Jayna Ruiz MD 06/04/2020 M19.071 Primary osteoarthritis, right an kle and foot Jayna Ruiz MD 05/12/2020 M47.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, lumbosacral region RICARDO Laboy 05/12/2020 M51.37 Other intervertebral disc degene ration, lumbosacral region RICARDO Laboy 05/12/2020 M48.061 Spinal stenosis, lum bar region [...] without myelopathy or radiculopathy, lumbosacral region Max Lemosna, PA 04/01/2020 M51.37 Other intervertebral disc degene ration, lumbosacral region Max Lemosna, PA 04/01/2020 M51.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, lumbosacral region Max Lemosna, PA 04/01/2020 M43.16 Spondylolisthesis, lumbar region Max Lemosna, PA 04/01/2020 M48.061 Spinal stenosis, lum bar region without neurogenic claudication Max Lemosna, PA 02/03/2020 M47.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, lumbosacral region Max Lemosna, PA 02/03/2020 M51.37 Other intervertebral disc degene ration, lumbosacral region Max Lemosna, PA 02/03/2020 M51.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, lumbosacral region Max Lemosna, PA 02/03/2020 M43.16 Spondylolisthesis, lumbar region Max Lemosna, PA 02/03/2020 M48.061 Spinal stenosis, lum bar region without neurogenic claudication Max Clements Meghana, PA 01/13/2020 M51.26 Other intervertebral disc displa cement, lumbar region Fortino Galicia MD 01/13/2020 M48.061 Spinal stenosis, lum bar region without neurogenic claudication Fortino Galicia MD Plan of Treatment Future Appointment(s):* 07/14/2020 1:30 pm - RICARDO Laboy [facility] 07/08/2020 - Don Gandara MD* M51.26 Other intervertebral disc displacement, lumbar region* New Orders:* Surgery, Ordered: 07/08/20 * Follow up:* post op * M48.061 Spinal stenosis, lumbar region without neurogenic claudication * All * New Medication:* Gabapentin 600 mg - 1 qid * Celebrex 200 mg - 2 po daily for 5 days then once a day Functional Status Description No Information Available Mental Status Description No Information Available Referrals Refer to Dr Reason for Referral Status Appt Date Fortino Galicia MD NIKITA INJ'S([id number], [id number]) PER EMILY AT [facility] ARE APPROVED [id number] AND [id number] NO AUTH REQUIRED TO SURGERY NT// CALLED BACK AND HAD [id number] ADDED PER VINEET Silva AT [facility] THIS IS APPROVEDNT Created [address] [place] [address], [address] [phone] Jayna Ruiz MD [facility] [employer] PER WEB NO AUTH REQUIRED HAS BEEN MET. 20 % COIN. AND THEY ARE ALLOWED 1 A YEAR. LS Created [address] [place], [place] [id number] [place], [place] [id number] [phone] Fortino Galicia MD NIKITA INJ'S([id number], AND [id number]) PER [facility] HAVE [employer]IP[employer] APPROVED AND CODES([id number] AND 28885) NO AUTH REQUIRED TO SURGERY NT Created [address] [place] [address], [address] [address] [phone]
--- OUTSIDE RECORDS SUMMARY | 2020-07-31 10:16 | CCD ---
Author Author [facility] er Organization Venancio [facility] er Address Unknown Phone Unavailable Care Team Providers Care Market Research Assistant Name Role Phone LuisCharlotte Merna PROBLEMS Type Condition ICD9-CM Code FVG71-AU Code Onset Dates Condition S tatus SNOMED Code Notes Problem Acute idiopathic gout, unspecified site M10.00 Active 53502319 Problem Essential hypertension I10 Active 20619230 Problem Arthritis M19.90 Active 3578782 Problem Sciatica of right side M54.31 Active 02638893 Problem Obstructive sleep apnea G47.33 Active 23228023 Problem 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 Active 642457871 Problem Idiopathic pulmonary fibrosis J84.112 Active 70 3533035 Problem Other chronic pain G89.29 Active 51592940 ALLERGIES No Known Allergies ENCOUNTERS from 1955 to 2020-07-10 Encounter Location Date Provider Diagnosis [address] [address] Ja n, 2020 Charlotte Smith IMMUNIZATIONS Vaccine Route Administration Date Status Rosas [...] Information RESULTS No Results REASON FOR VISIT referral MEDICAL (GENERAL) HISTORY Type Description Date Medical [...] No Information FUNCTIONAL STATUS No Information ASSESSMENTS No Information PLAN OF TREATMENT Medication Medication Name Sig Start Date Stop Date Oxycodone HCl 10 MG 1 tablet as needed Orally every 6 hrs, M DD #4 for 14 days Jul, Insurance Providers Payer Name Payer Address Payer Phone Insured Name Patient Relati onship to Insured Coverage Start Date Coverage End Date [employer] [address] [address] [place] [address] [place] [id number] 2015
--- OUTSIDE RECORDS SUMMARY | 2020-07-31 10:16 | CCD | Continuity of Care Document ---
Author Author [facility] Address [address] [place] [address] Phone Care Team Providers Care Application Security Architect Name Role Phone ALESHA FE BLUE PCP Allergies, Adverse Reactions, Alerts No allergy information available. Medications No medication information available. Problems No problem information available. Procedures No procedure information available. Relevant Diagnostic Tests and/or Laboratory Data Laboratory Results Test Date/Time Result Interpretation Reference Range Result Co mment Performing Site Cholesterol Level May 05, 2020 3:25am 170 0-200 [facility], [address] [place] [address] Triglycerides Level May 05, 2020 3:25am 60 0-15 0 [facility], [address] [place] [address] LDL Cholesterol, Calculated May 05, 2020 3:25am 100 0-100 [facility], [address] [place] [address] HDL Cholesterol May 05, 2020 3:25am 58 40-60 [facility], [address] [facility] [address] Cholesterol/HDL Ratio May 05, 2020 3:25am 2.9 0. 0-5.0 [facility], [address] [place] [address] Health Concerns No known health concerns documented Encounters Encounter Location(s) Arrival/Admit Date Discharge/Depart Date Provider(s) Discharged [facility], [facility] June 11, 2020 6:5 9pm July 02, 2020 8:53am EILEEN HOPKINS Discharged [facility] [place] May 22, 2020 10: 26am May 27, 2020 3:24am EILEEN HOPKINS Registered [facility], [facility] May 05, 2020 3:23am VAN MCCULLOUGH Assessments No Assessments Information Available Functional Status No Functional Status information available Goals No Goals Information Available Immunizations No Immunization Information Available Mental Status No Mental Status Information Available Medical Equipment No Medical Equipment Information available Insurance Providers Guarantor KENIADanikaKARINA Address [address] [address] Contact Info. Home Phone: Payer Policy Id Coverage Id Subscriber's Name Subscriber Id Effect thea Date Expiration Date [employer] [place] [id number] [place], [place] 2018 2019 Social History Assigned Sex Male Vital Signs No vital signs result information available.
--- OUTSIDE RECORDS SUMMARY | 2020-07-31 10:16 | CCD | Continuity of Care Document ---
Author Author Gilbert GANDARA MD Organization Unknown Address [address] [address] Phone [phone] Care Team Providers Care Basket Bottom Machine Operator Name Role Phone Lucas Leija RPA AUTM [phone] Don Gandara MD AUTM [phone] Charlotte Smith [facility] AUTM [phone] Problems Active Problems Provider Date Essential hypertension [...] 21 Losartan Potassium 100mg Tablets Charlotte Smith [facility] [employer] Respimat 2.5mcg/Act Aerosol Chang Lui MD [...] Pain For Up To 10 Days Unknown [place] 3 1000mg Capsules Unknown Vitamin C 1000mg [...] H/L Range Note Laboratory test finding 06/24/2020 [facility] [address] [place] [address] (315)- - Coronavirus 2019 Nasopharygeal This nucleic aci <SEE NOTE> 1 [facility] test finding [facility] [address] [place] [address] (315)- - Coronavirus 2019 Nasopharygeal This nucleic aci <SEE NOTE> 2 1 This nucleic acid amplificat ion test was developed and its performance characteristics determined by [employer]. Nucleic acid amplification tests include PCR and [...] detected) result in this assay. Performed at: [facility] [address] [facility], [place], [place] [id number] Highway Truck Driver: Angela Lee PhD, Phone: [phone] Not Detected 2 This nucleic acid amplificat ion test was developed and its performance characteristics determined by [employer]. Nucleic acid amplification tests include PCR and [...] detected) result in this assay. Performed at: [facility] [address] [id number] Highway Truck Driver: Naa Livingston MD, Phone: [phone] Not Detected Procedures Date Code Description Status 07/08/2020 06923 X-Ray Spine Lumbosacral Complete Inc Bending Views Min Of 6 Completed 06/29/2020 25895 Moderate Sedation Se rvices; Same Phys Intl 15 Mins; PT >= 5 Years Completed 06/29/2020 15764 Epidurography Radiological Super vision & Interpretation Completed 06/29/2020 86081 Injec Anesthetic Age nt/Steroid Trans Epidural Lumb/Sacral Ea Addl Completed 06/29/2020 82054 Injec Anesthetic Age nt/Steroid Trans Epidural Lumb/Sacral Single Completed 06/04/2020 75664 X-Ray Foot Complete Completed 06/04/2020 16980 X-Ray Ankle Complete Completed 04/27/2020 44333 Moderate Sedation Se rvices; Same Phys Intl 15 Mins; PT >= 5 Years Completed 04/27/2020 07031 Epidurography Radiological Super vision & Interpretation Completed 04/27/2020 80949 Injec Anesthetic Age nt/Steroid Trans Epidural Lumb/Sacral Ea Addl Completed 04/27/2020 72410 Injec Anesthetic Age nt/Steroid Trans Epidural Lumb/Sacral Single Completed Medical Devices Description No Information Available Encounters Type Date Location Provider Dx Diagnosis Office Visit 07/08/2020 10:00a Niya Gandara MD M51.26 Other intervertebral disc displacement, lumbar region M48.062 Spinal stenosis, lumbar gricelda on with neurogenic claudication M43.16 Spondylolisthesis, lumbar re gion Office Visit 06/27/2020 12:39p [place] Alex Nichole MD M51. 16 Intervertebral disc disorders w radiculopathy, lumbar region Office Visit 06/04/2020 2:15p [place] Jayna Ruiz MD M21. 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, lumbosacr region M51.37 Other intervertebral disc de generation, lumbosacral region M48.061 Spinal stenosis, lumbar gricelda on without neurogenic betty M51.27 Other intervertebral disc di splacement, lumbosacral region M43.16 Spondylolisthesis, lumbar re gion Office Visit 04/01/2020 10:30a [place] M47.817 Spondyls w/o myelopathy or radiculopathy, lumbosacr region M51.37 Other intervertebral disc de generation, lumbosacral region M51.27 Other intervertebral disc di splacement, lumbosacral region M43.16 Spondylolisthesis, lumbar re gion M48.061 Spinal stenosis, lumbar gricelda on without neurogenic betty Office Visit 02/03/2020 10:15a [place] M47.817 Spondyls w/o myelopathy or radiculopathy, lumbosacr region M51.37 Other intervertebral disc de generation, lumbosacral region M51.27 Other intervertebral disc di splacement, lumbosacral region M43.16 Spondylolisthesis, lumbar re gion M48.061 Spinal stenosis, lumbar gricelda on without neurogenic betty Assessments Date Code Description Provider 07/08/2020 M51.26 Other intervertebral disc displa cement, lumbar region Don Gandara MD 07/08/2020 M48.062 Spinal stenosis, lumbar region w ith neurogenic claudication Don Gandara MD 07/08/2020 M43.16 Spondylolisthesis, lumbar region Don Gandara MD 06/29/2020 M51.26 Other intervertebral [...] intervertebral disc degene ration, lumbosacral region Max Kowalski PA 05/12/2020 M48.061 Spinal stenosis, lum bar region without neurogenic claudication RICARDO Laboy 05/12/2020 M51.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, lumbosacral region RICARDO Laboy 05/12/2020 M43.16 Spondylolisthesis, lumbar region RICARDO Laboy 04/27/2020 M51.26 Other intervertebral disc displa cement, lumbar region Fortino Galicia MD 04/27/2020 M48.061 Spinal stenosis, lum bar region without neurogenic claudication Fortino Galicia MD 04/01/2020 M47.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, lumbosacral region Max Kowalski PA 04/01/2020 M51.37 Other intervertebral disc degene ration, lumbosacral region RICARDO Laboy 04/01/2020 M51.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, lumbosacral region Max Kowalski PA 04/01/2020 M43.16 Spondylolisthesis, lumbar region Max Kowalski PA 04/01/2020 M48.061 Spinal stenosis, lum bar region without neurogenic claudication Max M Meghana, PA 02/03/2020 M47.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, lumbosacral region RICARDO Laboy 02/03/2020 M51.37 Other intervertebral disc degene ration, lumbosacral region RICARDO Laboy 02/03/2020 M51.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, lumbosacral region RICARDO Laboy 02/03/2020 M43.16 Spondylolisthesis, lumbar region RICARDO Laboy 02/03/2020 M48.061 Spinal stenosis, lum bar region without neurogenic claudication RICARDO Laboy Plan of Treatment Future Appointment(s):* 08/03/2020 11:00 am - RICARDO Laboy at [place] 07/08/2020 - Don Gandara MD* M51.26 Other intervertebral disc displacement, lumbar region* New Orders:* Surgery, Ordered: 07/08/20 * Follow up:* post op * M48.062 Spinal [...] to Reason for Referral Status Appt Date Fortino Galicia MD NIKITA INJ'S([id number], 28077) PER EMILY [facility] ARE APPROVED 20628 AND 30916 NO AUTH REQUIRED TO SURGERY NT// CALLED BACK AND HAD 65928 ADDED PER VINEET Silva AT [facility] THIS IS APPROVEDNT Created 00 [address] [facility], [address] [place] [address] [phone] Jayna Ruiz MD [facility] NO.2D PER WEB NO AUTH REQUIRED HAS BEEN MET. 20 % COIN. AND THEY ARE ALLOWED 1 A YEAR. LS Created [address] [facility] [address] [place], [place] [id number] [phone] Fortino Galicia MD NIKITA INJ'S([id number], AND 19122) PER [facility] HAVE [employer] APPROVED AND CODES(12689 AND 42249) NO AUTH REQUIRED TO SURGERY NT Created [address] [facility], [address] [place] [address] [phone]
--- OUTSIDE RECORDS SUMMARY | 2020-07-31 10:17 | CCD | Continuity of Care Document ---
Author Author Gilbert GAXIOLA MD Organization Unknown Address [address] [place] [address], [address] [address] Phone [phone] Care Team Providers Care Plaster Applicator Name Role Phone Lucas Leija RPA AUTM [phone] Don Kumar MD AUTM [phone] Charlotte Smith AUTM [phone] Problems Active Problems Provider Date Essential hypertension Jayna Ruiz MD Onset: 019 Social History Type Date Description Comments Sex Unknown ETOH Use Rarely consumes alcohol Tobacco Use Start: Unknown End: Unknown Patient is a former smoker Allergies, Adverse Reactions, Alerts Description No Known Drug Allergies Medications Active Medications SIG Qnty Indications Ordering Provide r Date Micardis 40mg Tablets Unknown Amlodipine Besylate 5mg Tablets Unknown Celebrex 200mg Capsules 1 by mouth every day with food, may increase to twice a day as needed Unknown Multi Vitamin Tablets 2 ever y day Unknown Osteo Bi-Flex Regular Strength 250-200mg Tablets Unknown Vitamin C 1000mg Tablets 1 by mouth every day Unknown Touchet 3 1000mg Capsules Unknown Immunizations Description No Information Available Vital Signs Date Vital Result Comment 05/12/2020 10:01am Body Temperature 97.3 F 11/19/2019 4:18pm Body Temperature 98.1 F Height 69 inches 5'9" Weight 181.00 lb BMI (Body Mass Index) 26.7 kg/m2 Results Test Acquired Date Facility Test Result H/L Range Note Laboratory test finding 06/24/2020 [facility] [address] [place] [address] (315)- - Coronavirus 2019 Nasopharygeal This nucleic aci <SEE NOTE> 1 Laboratory test finding 04/22/2020 [facility] [address] [place] [address] (315)- - Coronavirus 2019 Nasopharygeal This nucleic aci <SEE NOTE> 2 Laboratory test finding 01/09/2020 [facility] [address] [place] [address] (315)- - Coronavirus 2019 Nasopharygeal Testing was perf <SEE NOTE> 3 Platelet Function Analysis 01/06/2020 [facility] [address] [place] [address] (315)- - Collagen Epinephrine 123 seconds Normal 74-162 4 1 This nucleic acid amplificat ion test was developed and its performance characteristics determined by [facility]. Nucleic acid amplification tests include PCR and [...] detected) result in this assay. Performed at: [facility] [address] [facility], [place], [place] [id number] Life Insurance Sales Agent: Angela Lee PhD, Phone: [phone] Not Detected 2 This nucleic acid amplificat ion test was developed and its performance characteristics determined by [facility]. Nucleic acid amplification tests include PCR and [...] detected) result in this assay. Performed at: [facility] [address] [id number] Life Insurance Sales Agent: Naa Livingston MD, Phone: [phone] Not Detected 3 Testing was performed using the geneva(R) SARS-CoV-2 test. This test was developed and its performance characteristics determined by [facility]. This test has not been FDA cleared [...] detected) result in this assay. Performed at: [facility] [address] [id number] Life Insurance Sales Agent: Naa Livingston MD, Phone: [phone] Not Detected 4 Results may be affected by p latelet counts less than 150,000/mL or hematocrits less than 35%. If COL/EPI is NORMAL, COL/ADP is not performed. Result Interpretation: COL/EPI COL/ADP NORMAL NORMAL NORMAL ASA ABNORMAL NORMAL vWD ABNORMAL NORMAL GLANZMANN'S ABNORMAL ABNORMAL THROMBASTHENIA POSSIBLE DRUG ABNORMAL ABNORMAL EFFECT Procedures Date Code Description Status 06/04/2020 42463 X-Ray Foot Complete Completed 06/04/2020 83023 X-Ray Ankle Complete Completed 04/27/2020 48663 Moderate Sedation Se rvices; Same Phys Intl 15 Mins; PT >= 5 Years Completed 04/27/2020 86777 Epidurography Radiological Super vision & Interpretation Completed 04/27/2020 24795 Injec Anesthetic Age nt/Steroid Trans Epidural Lumb/Sacral Ea Addl Completed 04/27/2020 84295 Injec Anesthetic Age nt/Steroid Trans Epidural Lumb/Sacral Single Completed 01/13/2020 84239 Moderate Sedation Se rvices; Same Phys Intl 15 Mins; PT >= 5 Years Completed 01/13/2020 08384 Epidurography Radiological Super vision & Interpretation Completed 01/13/2020 30858 Injec Anesthetic Age nt/Steroid Trans Epidural Lumb/Sacral Ea Addl Completed 01/13/2020 47259 Injec Anesthetic Age nt/Steroid Trans Epidural Lumb/Sacral [...] without neurogenic betty Office Visit 02/03/2020 10:15a [facility] RICARDO Laboy M47.817 Spondyls w/o myelopathy or radiculopathy, lumbosacr region M51.37 Other intervertebral disc de generation, lumbosacral region M51.27 Other intervertebral disc di splacement, lumbosacral region M43.16 Spondylolisthesis, lumbar re gion M48.061 Spinal stenosis, lumbar gricelda on without neurogenic betty Assessments Date Code Description Provider 06/04/2020 M21.41 Flat foot [pes planus] (acquired [...] intervertebral disc displa cement, lumbar region Fortino Gaxiola MD 04/27/2020 M48.061 Spinal stenosis, lum bar region without neurogenic claudication Fortino Gaxiola MD 04/01/2020 M47.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, lumbosacral region RICARDO Laboy 04/01/2020 M51.37 Other intervertebral disc degene ration, lumbosacral region RICADRO Laboy 04/01/2020 M51.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, lumbosacral region Max M RICARDO Kowalski 04/01/2020 M43.16 Spondylolisthesis, lumbar region Max M Meghana, PA 04/01/2020 M48.061 Spinal stenosis, lum bar region without neurogenic claudication Max Starr RICARDO Kowalski 02/03/2020 M47.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, lumbosacral region Max M RICARDO Kowalski 02/03/2020 M51.37 Other intervertebral disc degene ration, lumbosacral region RICARDO Laboy 02/03/2020 M51.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, lumbosacral region Max Starr RICARDO Kowalski 02/03/2020 M43.16 Spondylolisthesis, lumbar region Max M Meghana, RICARDO 02/03/2020 M48.061 Spinal stenosis, lum bar region without neurogenic claudication Max Starr RICARDO Kowalski 01/13/2020 M51.26 Other intervertebral disc displa cement, lumbar region Fortino Gaxiola MD 01/13/2020 M48.061 Spinal stenosis, lum bar region without neurogenic claudication Fortino Gaxiola MD Plan of Treatment Future Appointment(s):* 07/14/2020 1:30 pm - RICARDO Laboy at [facility] 06/04/2020 - Jayna Ruiz MD* M21.41 Flat foot [pes planus] (acquired), right foot* New Orders:* [facility], Ordered: 06/04/20 * Follow up:* prn * M19.071 Primary osteoarthritis, right ankle and foot Functional Status Description No Information Available Mental Status Description No Information Available Referrals Refer to Dr Reason for Referral Status Appt Date Fortino Gaxiola MD NIKITA INJ'S([id number], [id number]) PER EMILY AT [facility] ARE APPROVED [id number] AND 50915 NO AUTH REQUIRED TO SURGERY NT// CALLED BACK AND HAD [id number] ADDED PER VINEET Silva AT [facility] THIS IS APPROVEDNT Created 00 [address] [facility], [address] [place] [address] [phone] Jayna Ruiz MD [facility] PTTD PER WEB NO AUTH REQUIRED HAS BEEN MET. 20 % COIN. AND THEY ARE ALLOWED 1 A YEAR. LS Created [address] [facility] [address] [place] [address] [phone] Fortino Gaxiola MD NIKITA INJ'S([id number], AND [id number]) PER MIKE HAVE FELIP[employer] APPROVED AND CODES(28057 AND 39816) NO AUTH REQUIRED TO SURGERY NT Created [address] [facility], [address] [place] [address] [phone]
--- OUTSIDE RECORDS SUMMARY | 2020-07-31 10:17 | CCD | Continuity of Care Document ---
Author Author Gilbert GAXIOLA MD Organization Unknown Address [address] [place] [address], [address] [address] Phone [phone] Care Team Providers Care Teacher Home Therapy Name Role Phone Lucas Leija RPA AUTM [phone] Don Kumar MD AUTM [phone] Charlotte Smith AUTM [phone] Problems Active Problems Provider Date Essential hypertension [...] Tablets 1 by mouth every day Unknown Kalida 3 1000mg Capsules Unknown Immunizations Description No Information Available Vital Signs Date Vital Result Comment 05/12/2020 10:01am Body Temperature 97.3 F 11/19/2019 4:18pm Body Temperature 98.1 F Height 69 inches 5'9" Weight 181.00 lb BMI (Body Mass Index) 26.7 kg/m2 Results Test Acquired Date Facility Test Result H/L Range Note Laboratory test finding 06/24/2020 [facility] [address] [place] [address] (315)- - Coronavirus 2019 Nasopharygeal This nucleic aci <SEE NOTE> 1 Laboratory test finding 04/22/2020 [facility] [address] [place] [address] (315)- - Coronavirus 2019 Nasopharygeal This nucleic aci <SEE NOTE> 2 Laboratory test finding 01/09/2020 [facility] [address] [place] [address] (315)- - Coronavirus 2019 Nasopharygeal Testing was perf <SEE NOTE> 3 Platelet Function Analysis 01/06/2020 [facility] [address] [place] [address] (315)- - Collagen Epinephrine 123 seconds Normal 74-162 4 1 This nucleic acid amplificat ion test was developed and its performance characteristics determined by [facility]. Nucleic acid amplification tests include PCR and [...] detected) result in this assay. Performed at: [facility] [address] [facility], [place], [place] [id number] Content Production Specialist: Angela Lee PhD, Phone: [phone] Not Detected 2 This nucleic acid amplificat ion test was developed and its performance characteristics determined by [facility]. Nucleic acid amplification tests include PCR and [...] detected) result in this assay. Performed at: [facility] [address] [id number] Content Production Specialist: Naa Livingston MD, Phone: [phone] Not Detected 3 Testing was performed using the geneva(R) SARS-CoV-2 test. This test was developed and its performance characteristics determined by [facility]. This test has not been FDA cleared [...] detected) result in this assay. Performed at: [facility] [address] [id number] Content Production Specialist: Naa Livingston MD, Phone: [phone] Not Detected 4 Results may be affected by p latelet counts less than 150,000/mL or hematocrits less than 35%. If COL/EPI is NORMAL, COL/ADP is not performed. Result Interpretation: COL/EPI COL/ADP NORMAL NORMAL NORMAL ASA ABNORMAL NORMAL vWD ABNORMAL NORMAL GLANZMANN'S ABNORMAL ABNORMAL THROMBASTHENIA POSSIBLE DRUG ABNORMAL ABNORMAL EFFECT Procedures Date Code Description Status 06/29/2020 38928 Moderate Sedation Se rvices; Same Phys Intl 15 Mins; PT >= 5 Years Completed 06/29/2020 88840 Epidurography Radiological Super vision & Interpretation Completed 06/29/2020 30317 Injec Anesthetic Age nt/Steroid Trans Epidural Lumb/Sacral Ea Addl Completed 06/29/2020 65488 Injec Anesthetic Age nt/Steroid Trans Epidural Lumb/Sacral Single Completed 06/04/2020 07170 X-Ray Foot Complete Completed 06/04/2020 50398 X-Ray Ankle Complete Completed 04/27/2020 56855 Moderate Sedation Se rvices; Same Phys Intl 15 Mins; PT >= 5 Years Completed 04/27/2020 68145 Epidurography Radiological Super vision & Interpretation Completed 04/27/2020 55242 Injec Anesthetic Age nt/Steroid Trans Epidural Lumb/Sacral Ea Addl Completed 04/27/2020 43124 Injec Anesthetic Age nt/Steroid Trans Epidural Lumb/Sacral Single Completed 01/13/2020 66678 Moderate Sedation Se rvices; Same Phys Intl 15 Mins; PT >= 5 Years Completed 01/13/2020 13790 Epidurography Radiological Super vision & Interpretation Completed 01/13/2020 55717 Injec Anesthetic Age nt/Steroid Trans Epidural Lumb/Sacral Ea Addl Completed 01/13/2020 18355 Injec Anesthetic Age nt/Steroid Trans Epidural Lumb/Sacral [...] without neurogenic betty Office Visit 02/03/2020 10:15a [facility] M47.817 Spondyls w/o myelopathy or radiculopathy, lumbosacr region M51.37 Other intervertebral disc de generation, lumbosacral region M51.27 Other intervertebral disc di splacement, lumbosacral region M43.16 Spondylolisthesis, lumbar re gion M48.061 Spinal stenosis, lumbar gricelda on without neurogenic betty Assessments Date Code Description Provider 06/29/2020 M51.26 Other intervertebral disc displa cement, lumbar region Fortino Gaxiola MD 06/29/2020 M48.061 Spinal stenosis, lum bar region without neurogenic claudication Fortino Gaxiola MD 06/04/2020 M21.41 Flat foot [pes planus] [...] RICARDO Laboy 05/12/2020 M43.16 Spondylolisthesis, lumbar region Max Clements Meghana, PA 04/27/2020 M51.26 Other intervertebral disc displa cement, lumbar region Fortino Gaxiola MD 04/27/2020 M48.061 Spinal stenosis, lum bar region without neurogenic claudication Fortino Gaxiola MD 04/01/2020 M47.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, lumbosacral region Max Clements Meghana, PA 04/01/2020 M51.37 Other intervertebral disc degene ration, lumbosacral region Max M Meghana, PA 04/01/2020 M51.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, lumbosacral region Max Clements Meghana, PA 04/01/2020 M43.16 Spondylolisthesis, lumbar region Max Lemosna, PA 04/01/2020 M48.061 Spinal stenosis, lum bar region without neurogenic claudication Max M Meghana PA 02/03/2020 M47.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, lumbosacral region Max Lemosna, PA 02/03/2020 M51.37 Other intervertebral disc degene ration, lumbosacral region Max M Meghana, PA 02/03/2020 M51.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, lumbosacral region Max M Meghana, PA 02/03/2020 M43.16 Spondylolisthesis, lumbar region Max M Meghana, PA 02/03/2020 M48.061 Spinal stenosis, lum bar region without neurogenic claudication Max M Meghana PA 01/13/2020 M51.26 Other intervertebral disc displa cement, lumbar region Fortino Gaxiola MD 01/13/2020 M48.061 Spinal stenosis, lum bar region without neurogenic claudication Fortino Gaxiola MD Plan of Treatment Future Appointment(s):* 07/14/2020 1:30 pm - [facility] at [facility] 06/04/2020 - Jayna Ruiz MD* M21.41 Flat foot [pes planus] (acquired), right foot* New Orders:* [facility], Ordered: 06/04/20 * Follow up:* prn * M19.071 Primary osteoarthritis, right ankle and foot Functional Status Description No Information Available Mental Status Description No Information Available Referrals Refer to Dr Reason for Referral Status Appt Date Fortino Gaxiola MD NIKITA INJ'S([id number], [id number]) PER EMILY AT [facility] ARE APPROVED [id number] AND 51404 NO AUTH REQUIRED TO SURGERY NT// CALLED BACK AND HAD 45346 ADDED PER VINEET Silva AT [facility] THIS IS APPROVEDNT Created [address] [place] [address], [address] [address] [phone] Jayna Ruiz MD [facility] [employer] PTTD PER WEB NO AUTH REQUIRED HAS BEEN MET. 20 % COIN. AND THEY ARE ALLOWED 1 A YEAR. LS Created [address] [place], [place] [id number] [place] [address] [phone] Fortino Gaxiola MD NIKITA INJ'S([id number], AND 50493) PER [facility] HAVE FELIPA APPROVED AND CODES([id number] AND 54219) NO AUTH REQUIRED TO SURGERY NT Created [address] [place] [address], [address] [address] [phone]
--- OUTSIDE RECORDS SUMMARY | 2020-07-31 10:19 | CCD ---
Author Author [facility] Organization [facility] Address Unknown Phone Unavailable Care Team Providers Care Mold Closer Name Role Phone ALECIA LOVETT MD Unavailable Unavailable RACHELLALECIA MD Unavailable Unavailable RACHELLALECIA MD Unavailable Unavailable RACHELLALECIA MD Unavailable Unavailable RACHELLALECIA Concepcion MD Unavailable Unavailable RACHLELALECIA Concepcion MD Unavailable Unavailable RACHELLALECIA Concepcion MD Unavailable Unavailable RACHELLALECIA Concepcion MD Unavailable Unavailable ALECIA LOVETT MD Unavailable Unavailable RACHELLALECIA Concepcion MD Unavailable Unavailable RACHELLALECIA Concepcion MD Unavailable Unavailable RACHELLALECIA Concepcion MD Unavailable Unavailable RACHELLALECIA Concepcion MD Unavailable Unavailable ALECIA LOVETT MD Unavailable Unavailable RACHELLALECIA Concepcion MD Unavailable Unavailable ALECIA LOVETT MD Unavailable Unavailable ALECIA LOVETT MD Unavailable Unavailable ALECIA LOVETT MD Unavailable Unavailable ALECIA LOVETT MD Unavailable Unavailable ALECIA LOVETT MD Unavailable Unavailable ALECIA LOVETT MD Unavailable Unavailable RACHELLALECIA Concepcion MD Unavailable Unavailable RACHELLALECIA Concepcion MD Unavailable Unavailable RACHELLALECIA MD Unavailable Unavailable RACHELL, ALECIA MEYER MD Unavailable Unavailable RACHELL, ALECIA MEYER MD Unavailable Unavailable RACHELL, ALECIA MEYER MD Unavailable Unavailable RACHELL, ALECIA MEYER MD Unavailable Unavailable Shirley, Jayy Benedict MD Unavailable + Shirley, Jayy Benedict MD Unavailable + Shirley, Jayy Benedict MD Unavailable + Shirley, Jayy Benedict MD Unavailable + Starr Johnson MD Unavailable Unavailable Elizabeth, Starr Davis MD Unavailable Unavailable Elizabeth, Starr Davis MD Unavailable Unavailable Elizabeth, Starr Davis MD Unavailable Unavailable Elizabeth, Starr Davis MD Unavailable Unavailable Elizabeth, Starr Davis MD Unavailable Unavailable Elizabeth, Starr Davis MD Unavailable Unavailable Elizabeth, Starr Davis MD Unavailable Unavailable Elizabeth, Starr Davis MD Unavailable Unavailable Elizabeth, Starr Davis MD Unavailable Unavailable Elizabeth, Starr Davis MD Unavailable Unavailable Elizabeth, Starr Davis MD Unavailable Unavailable Elizabeth, Starr Davis MD Unavailable Unavailable Starr Johnson MD Unavailable Unavailable Elizabeth, Starr Davis MD Unavailable Unavailable Starr Johnson MD Unavailable Unavailable Starr Johnson MD Unavailable Unavailable Elizabeth, Starr Davis MD Unavailable Unavailable Starr Johnson MD Unavailable Unavailable Elizabeth, Starr Davis MD Unavailable Unavailable Starr Johnson MD Unavailable Unavailable Starr Johnson MD Unavailable Unavailable Starr Johnson MD Unavailable Unavailable Starr Johnson MD Unavailable Unavailable Starr Johnson MD Unavailable Unavailable Starr Johnson MD Unavailable Unavailable Starr Johnson MD Unavailable Unavailable Starr Johnson MD Unavailable Unavailable Starr Johnson MD Unavailable Unavailable Starr Johnson MD Unavailable Unavailable Starr Johnson MD Unavailable Unavailable Elizabeth, Starr Davis MD Unavailable Unavailable Elizabeth, Starr Davis MD Unavailable Unavailable Starr Johnson MD Unavailable Unavailable Ingrid Anaya MD Unavailable Unavailable Ingrid Anaya MD Unavailable Unavailable Ingrid Anaya MD Unavailable Unavailable Ingrid Anaya MD Unavailable Unavailable Ingrid Anaya MD Unavailable Unavailable Ingrid Anaya MD Unavailable Unavailable Héctor, A Mitchel MD Unavailable Unavailable Héctor, A Mitchel MD Unavailable Unavailable Héctor, A Mitchel MD Unavailable Unavailable Héctor, A Mitchel MD Unavailable Unavailable Héctor, A Mitchel MD Unavailable Unavailable Héctor, A Mitchel MD Unavailable Unavailable Héctor, A Mitchel MD Unavailable Unavailable Héctor, A Mitchel MD Unavailable Unavailable Héctor, A Mitchel MD Unavailable Unavailable Héctor, A Mitchel MD Unavailable Unavailable Héctor, A Mitchel MD Unavailable Unavailable Héctor, A Mitchel MD Unavailable Unavailable Héctor, A Mitchel MD Unavailable Unavailable Héctor, A Mitchel MD Unavailable Unavailable Héctor, A Mitchel MD Unavailable Unavailable Héctor, A Mitchel MD Unavailable Unavailable Héctor, A Mitchel MD Unavailable Unavailable Héctor, A Mitchel MD Unavailable Unavailable Héctor, A Mitchel MD Unavailable Unavailable Héctor, A Mitchel MD Unavailable Unavailable Héctor, A Mitchel MD Unavailable Unavailable Héctor, A Mitchel MD Unavailable Unavailable Héctor, A Mitchel MD Unavailable Unavailable Héctor, A Mitchel MD Unavailable Unavailable Héctor, A Mitchel MD Unavailable Unavailable Héctor, A Mitchel MD Unavailable Unavailable Héctor, A Mitchel MD Unavailable Unavailable Héctor, A Mitchel MD Unavailable Unavailable Héctor, A Mitchel MD Unavailable Unavailable Héctor, A Mitchel MD Unavailable Unavailable Héctor, A Mitchel MD Unavailable Unavailable Héctor, A Mitchel MD Unavailable Unavailable Héctor, A Mitchel MD Unavailable Unavailable Héctor, A Mitchel MD Unavailable Unavailable Héctor, A Mitchel MD Unavailable Unavailable Héctor, A Mitchel MD Unavailable Unavailable Héctor, A Mitchel MD Unavailable Unavailable Héctor, A Mitchel MD Unavailable Unavailable Héctor, A Mitchel MD Unavailable Unavailable Héctor, A Mitchel MD Unavailable Unavailable Héctor, A Mitchel MD Unavailable Unavailable Héctor, A Mitchel MD Unavailable Unavailable Héctor, A Mitchel MD Unavailable Unavailable Héctor, A Mitchel MD Unavailable Unavailable Héctor, A Mitchel MD Unavailable Unavailable Héctor, A Mitchel MD Unavailable Unavailable Héctor, A Mitchel MD Unavailable Unavailable Héctor, A Mitchel MD Unavailable Unavailable Héctor, A Mitchel MD Unavailable Unavailable Héctor, A Mitchel MD Unavailable Unavailable Héctor, A Mitchel MD Unavailable Unavailable Héctor, A Mitchel MD Unavailable Unavailable Héctor, A Mitchel MD Unavailable Unavailable Héctor, A Mitchel MD Unavailable Unavailable Héctor, A Mitchel MD Unavailable Unavailable Héctor, A Mitchel MD Unavailable Unavailable Héctor, A Mitchel MD Unavailable Unavailable Héctor, A Mitchel MD Unavailable Unavailable Héctor, A Mitchel MD Unavailable Unavailable Héctor, A Mitchel MD Unavailable Unavailable Héctor, A Mitchel MD Unavailable Unavailable Héctor, A Mitchel MD Unavailable Unavailable Héctor, A Mitchel MD Unavailable Unavailable Héctor, A Mitchel MD Unavailable Unavailable Héctor, A Mitchel MD Unavailable Unavailable Héctor, A Mitchel MD Unavailable Unavailable Héctor, A Mitchel MD Unavailable Unavailable Héctor, A Mitchel MD Unavailable Unavailable Héctor, A Mitchel MD Unavailable Unavailable Héctor, A Mitchel MD Unavailable Unavailable Héctor, A Mitchel MD Unavailable Unavailable Héctor, A Mitchel MD Unavailable Unavailable Héctor, A Mitchel MD Unavailable Unavailable Héctor, A Mitchel MD Unavailable Unavailable Héctor, A Mitchel MD Unavailable Unavailable Héctor, A Mitchel MD Unavailable Unavailable Héctor, A Mitchel MD Unavailable Unavailable Héctor, A Mitchel MD Unavailable Unavailable Héctor, A Mitchel MD Unavailable Unavailable Héctor, A Mitchel MD Unavailable Unavailable Héctor, A Mitchel MD Unavailable Unavailable Héctor, A Mitchel MD Unavailable Unavailable Héctor, A Mitchel MD Unavailable Unavailable Héctor, A Mitchel MD Unavailable Unavailable Héctor, A Mitchel MD Unavailable Unavailable Héctor, A Mitchel MD Unavailable Unavailable Héctor, A Mitchel MD Unavailable Unavailable Héctor, A Mitchel MD Unavailable Unavailable Héctor, A Mitchel MD Unavailable Unavailable Héctor, A Mithcel MD Unavailable Unavailable Héctor, A Mitchel MD Unavailable Unavailable Héctor, A Mitchel MD Unavailable Unavailable Héctor, A Mitchel MD Unavailable Unavailable Héctor, A Mitchel MD Unavailable Unavailable Héctor, A Mitchel MD Unavailable Unavailable Héctor, A Mitchel MD Unavailable Unavailable Héctor, A Mitchel MD Unavailable Unavailable Héctor, A Mitchel MD Unavailable Unavailable Héctor, A Mitchel MD Unavailable Unavailable Héctor, A Mitchel MD Unavailable Unavailable Héctor, A Mitchel MD Unavailable Unavailable Héctor, A Mitchel MD Unavailable Unavailable Héctor, A Mitchel MD Unavailable Unavailable Héctor, A Mitchel MD Unavailable Unavailable Héctor, A Mitchel MD Unavailable Unavailable Héctor, A Mitchel MD Unavailable Unavailable Jayy WATSON [id number] Unavailable Unavailable Elizabeth, Starr Davis MD Unavailable Unavailable Elizabeth, Starr Davis MD Unavailable Unavailable Elizabeth, Starr Davis MD Unavailable Unavailable Elizabeth, Starr Davis MD Unavailable Unavailable Mussett, Starr Davis MD Unavailable Unavailable Elizabeth, Starr Davis MD Unavailable Unavailable Elizabeth, Starr Davis MD Unavailable Unavailable Elizabeth, Starr Davis MD Unavailable Unavailable Elizabeth, Starr Davis MD Unavailable Unavailable Elizabeth, Starr Davis MD Unavailable Unavailable Mussrodrigo, Starr Davis MD Unavailable Unavailable Elizabeth, Starr Davis MD Unavailable Unavailable Elizabeth, Starr Davis MD Unavailable Unavailable Elizabeth, Starr Davis MD Unavailable Unavailable Elizabeth, Starr Davis MD Unavailable Unavailable Elizabeth, Starr Davis MD Unavailable Unavailable Mussett, Starr Davis MD Unavailable Unavailable Galicia, Fortino Unavailable Unavailable Galicia, Fortino Unavailable Unavailable Galicia, Fortino Unavailable Unavailable Galicia, Fortino Unavailable Unavailable Galicia, Fortino Unavailable Unavailable Galicia, Fortino Unavailable Unavailable Galicia, Fortino Unavailable Unavailable Galicia, Fortino Unavailable Unavailable Galicia, Fortino Unavailable Unavailable Galicia, Fortino Unavailable Unavailable Galicia, Fortino Unavailable Unavailable Galicia, Fortino Unavailable Unavailable Galicia, Fortino Unavailable Unavailable Galicia, Fortino Unavailable Unavailable Galicia, Fortino Unavailable Unavailable Galicia, Fortino Unavailable Unavailable Galicia, Fortino Unavailable Unavailable Galicia, Fortino Unavailable Unavailable Galicia, Fortino Unavailable Unavailable Galicia, Fortino Unavailable Unavailable Galicia, Fortino Unavailable Unavailable Galicia, Fortino Unavailable Unavailable Galicia, Fortino Unavailable Unavailable Galicia, Fortino Unavailable Unavailable Galicia, Fortino Unavailable Unavailable Galicia, Fortino Unavailable Unavailable Galicia, Fortino Unavailable Unavailable Galicia, Fortino Unavailable Unavailable Galicia, Fortino Unavailable Unavailable Galicia, Fortino Unavailable Unavailable Galicia, Fortino Unavailable Unavailable Galicia, Fortino Unavailable Unavailable Galicia, Fortino Unavailable Unavailable Galicia, Fortino Unavailable Unavailable Galicia, Fortino Unavailable Unavailable Galicia, Fortino Unavailable Unavailable Galicia, Fortino Unavailable Unavailable Galicia, Fortino Unavailable Unavailable Galicia, Fortino Unavailable Unavailable Galicia, Fortino Unavailable Unavailable Galicia, Fortino Unavailable Unavailable Galicia, Fortino Unavailable Unavailable Galicia, Fortino Unavailable Unavailable Galicia, Fortino Unavailable Unavailable DORETHA BELLO MD Unavailable Unavailable DORETHA BELLO MD Unavailable Unavailable MIRZA LEIJA MD Unavailable Unavailable MIRZA LEIJA MD Unavailable Unavailable MIRZA LEIJA MD Unavailable Unavailable MIRZA LEIJA MD Unavailable Unavailable MIRZA LEIJA MD Unavailable Unavailable MIRZA MCCULLOUGH MD Unavailable Unavailable MIRZA MCCULLOUGH MD Unavailable Unavailable MIRZA MCCULLOUGH MD Unavailable Unavailable MIRZA MCCULLOUGH MD Unavailable Unavailable MIRZA MCCULLOUGH MD Unavailable Unavailable MIRZA MCCULLOUGH MD Unavailable Unavailable MIRZA MCCULLOUGH MD Unavailable Unavailable MIRZA MCCULLOUGH MD Unavailable Unavailable MIRZA MCCULLOUGH MD Unavailable Unavailable MIRZA MCCULLOUGH MD Unavailable Unavailable MIRZA MCCULLOUGH MD Unavailable Unavailable MIRZA MCCULLOUGH MD Unavailable Unavailable MIRZA MCCULLOUGH MD Unavailable Unavailable MIRZA MCCULLOUGH MD Unavailable Unavailable MCCULLOUGHMIRZA HOOVER MD Unavailable Unavailable MCCULLOUGHMIRZA MOBLEY MD Unavailable Unavailable MIRZA MCCULLOUGH MD Unavailable Unavailable MCCULLOUGHMIRZA MOBLEY MD Unavailable Unavailable MCCULLOUGHMIRZA HOOVER MD Unavailable Unavailable MCCULLOUGHMIRZA MOBLEY MD Unavailable Unavailable MCCULLOUGHMIRZA HOOVER MD Unavailable Unavailable MCCULLOUGHMIRZA HOOVER MD Unavailable Unavailable MCCULLOUGHMIRZA MOBLEY MD Unavailable Unavailable MCCULLOUGHMIRZA MOBLEY MD Unavailable Unavailable MCCULLOUGHMIRZA MOBLEY MD Unavailable Unavailable MCCULLOUGHMIRZA MOBLEY MD Unavailable Unavailable MCCULLOUGHMIRZA MOBLEY MD Unavailable Unavailable MCCULLOUGHMIRZA MOBLEY MD Unavailable Unavailable MCCULLOUGHMIRZA MOBLEY MD Unavailable Unavailable MCCULLOUGHMIRZA MOBLEY MD Unavailable Unavailable MCCULLOUGHMIRZA MOBLEY MD Unavailable Unavailable Luis, Raghavendra London MD Unavailable Unavailable Luis, Raghavendra London MD Unavailable Unavailable Luis, Raghavendra London MD Unavailable Unavailable Luis, Raghavendra London MD Unavailable Unavailable Luis, Raghavendra London MD Unavailable Unavailable Luis, Raghavendra London MD Unavailable Unavailable Luis, Raghavendra London MD Unavailable Unavailable Luis, Raghavendra London MD Unavailable Unavailable Luis, Raghavendra London MD Unavailable Unavailable Luis, Raghavendra London MD Unavailable Unavailable Luis, Raghavendra London MD Unavailable Unavailable Luis, Raghavendra London MD Unavailable Unavailable Luis, Raghavendra London MD Unavailable Unavailable Luis, Raghavendra London MD Unavailable Unavailable Luis, Raghavendra London MD Unavailable Unavailable Luis, Raghavendra London MD Unavailable Unavailable Luis, Raghavendra London MD Unavailable Unavailable Luis, Raghavendra London MD Unavailable Unavailable Luis, Raghavendra London MD Unavailable Unavailable Luis, Raghavendra London MD Unavailable Unavailable Luis, Raghavendra London MD Unavailable Unavailable Luis, Raghavendra London MD Unavailable Unavailable Luis, Raghavendra London MD Unavailable Unavailable Luis, Raghavendra London MD Unavailable Unavailable Luis, Raghavendra London MD Unavailable Unavailable Luis, Raghavendra London MD Unavailable Unavailable Luis, Raghavendra London MD Unavailable Unavailable Luis, Raghavendra London MD Unavailable Unavailable Luis, Raghavendra London MD Unavailable Unavailable Luis, Raghavendra London MD Unavailable Unavailable Luis, Raghavendra London MD Unavailable Unavailable Luis, Raghavendra London MD Unavailable Unavailable Luis, Raghavendra London MD Unavailable Unavailable Luis, Raghavendra London MD Unavailable Unavailable Luis, Raghavendra London MD Unavailable Unavailable Luis, Raghavendra London MD Unavailable Unavailable Luis, Raghavendra London MD Unavailable Unavailable Luis, Raghavendra London MD Unavailable Unavailable Luis, E Charlotte FOOD OPERATIONS MANAGER Unavailable Unavailable Luis, E Charlotte FOOD OPERATIONS MANAGER Unavailable Unavailable Luis, E Charlotte FOOD OPERATIONS MANAGER Unavailable Unavailable Luis, E Charlotte FOOD OPERATIONS MANAGER Unavailable Unavailable Luis, E Charlotte FOOD OPERATIONS MANAGER Unavailable Unavailable Luis, E Charlotte FOOD OPERATIONS MANAGER Unavailable Unavailable Luis, E Charlotte FOOD OPERATIONS MANAGER Unavailable Unavailable Luis, E Charlotte FOOD OPERATIONS MANAGER Unavailable Unavailable Luis, E Charlotte FOOD OPERATIONS MANAGER Unavailable Unavailable Luis, E Charlotte FOOD OPERATIONS MANAGER Unavailable Unavailable Luis, E Charlotte FOOD OPERATIONS MANAGER Unavailable Unavailable Luis, E Charlotte FOOD OPERATIONS MANAGER Unavailable Unavailable Luis, E Charlotte FOOD OPERATIONS MANAGER Unavailable Unavailable Luis, E Charlotte FOOD OPERATIONS MANAGER Unavailable Unavailable Luis, E Charlotte FOOD OPERATIONS MANAGER Unavailable Unavailable Luis, E Charlotte FOOD OPERATIONS MANAGER Unavailable Unavailable Luis, E Charlotte FOOD OPERATIONS MANAGER Unavailable Unavailable Luis, E Charlotte FOOD OPERATIONS MANAGER Unavailable Unavailable Luis, E Charlotte FOOD OPERATIONS MANAGER Unavailable Unavailable Luis, E Charlotte FOOD OPERATIONS MANAGER Unavailable Unavailable Luis, E Charlotte FOOD OPERATIONS MANAGER Unavailable Unavailable Luis, E Charlotte FOOD OPERATIONS MANAGER Unavailable Unavailable Luis, E Charlotte FOOD OPERATIONS MANAGER Unavailable Unavailable Luis, E Charlotte FOOD OPERATIONS MANAGER Unavailable Unavailable Luis, E Charlotte FOOD OPERATIONS MANAGER Unavailable Unavailable Luis, E Charlotte FOOD OPERATIONS MANAGER Unavailable Unavailable Luis, E Charlotte FOOD OPERATIONS MANAGER Unavailable Unavailable VANStarr EPPERSON MD Unavailable Unavailable VANVALKENStarr BECK MD Unavailable Unavailable VANVALKENStarr BECK MD Unavailable Unavailable VANVALKENStarr BECK MD Unavailable Unavailable VANVALStarr GARCIA MD Unavailable Unavailable VANVALStarr GARCIA MD Unavailable Unavailable VANVALKENStarr BECK MD Unavailable Unavailable VANVALKENStarr BECK MD Unavailable Unavailable VANVALKENStarr BECK MD Unavailable Unavailable VANVALStarr GARCIA MD Unavailable Unavailable VANVALStarr GARCIA MD Unavailable Unavailable VANVALStarr GARCIA MD Unavailable Unavailable VANVALKENStarr BECK MD Unavailable Unavailable VANVALKENStarr BECK MD Unavailable Unavailable VANVALKENStarr BECK MD Unavailable Unavailable VANVALStarr GARCIA MD Unavailable Unavailable VANVALKENStarr BECK MD Unavailable Unavailable VANVALKENStarr BECK MD Unavailable Unavailable VANVALKENStarr BECK MD Unavailable Unavailable VANVALKENStarr BECK MD Unavailable Unavailable VANVALStarr GARCIA MD Unavailable Unavailable VANVALStarr GARCIA MD Unavailable Unavailable VANVALStarr GARCIA MD Unavailable Unavailable VANVALStarr GARCIA MD Unavailable Unavailable VANVALStarr GARCIA MD Unavailable Unavailable VANVALKENStarr BECK MD Unavailable Unavailable VANVALKENStarr BECK MD Unavailable Unavailable VANVALKENStarr BECK MD Unavailable Unavailable VANVALStarr GARCIA MD Unavailable Unavailable VANVALKENStarr BECK MD Unavailable Unavailable VANVALStarr GARCIA MD Unavailable Unavailable VANVALKENStarr BECK MD Unavailable Unavailable VANVALKENStarr BECK MD Unavailable Unavailable VANVALKENStarr BECK MD Unavailable Unavailable VANVALKENBURG, Starr VICTOR MD Unavailable Unavailable VANVALKENBURG, Starr VICTOR MD Unavailable Unavailable VANVALKENBURG, Starr VICTOR MD Unavailable Unavailable VANVALKENBURG, Starr VICTOR MD Unavailable Unavailable VANVALKENBURG, Starr VICTOR MD Unavailable Unavailable VANVALKENBURG, Starr VICTOR MD Unavailable Unavailable VANVALKENBURG, Starr VICTOR MD Unavailable Unavailable VANVALKENBURG, Starr VICTOR MD Unavailable Unavailable VANVALKENBURG, Starr VICTOR MD Unavailable Unavailable VANVALKENBURG, Starr VICTOR MD Unavailable Unavailable VANVALKENBURG, Starr VICTOR MD Unavailable Unavailable VANVALKENBURG, Starr VICTOR MD Unavailable Unavailable VANVALKENBURG, Starr VICTOR MD Unavailable Unavailable VANVALKENBURG, Starr VICTOR MD Unavailable Unavailable VANVALKENBURG, Starr VICTOR MD Unavailable Unavailable VANVALKENBURG, Starr VICTRO MD Unavailable Unavailable VANVALKENBURG, Starr VICTOR MD Unavailable Unavailable VANVALKENBURG, Starr VICTOR MD Unavailable Unavailable VANVALKENBURG, Starr VICTOR MD Unavailable Unavailable VANVALKENBURG, Starr VICTOR MD Unavailable Unavailable VANVALKENBURG, Starr VICTOR MD Unavailable Unavailable VANVALKENBURG, Starr VICTOR MD Unavailable Unavailable VANVALKENBURG, Starr VICTOR MD Unavailable Unavailable VANVALKENBURG, Starr VICTOR MD Unavailable Unavailable VANVALKENBURG, Starr VICTOR MD Unavailable Unavailable VANVALKENBURG, Starr VICTOR MD Unavailable Unavailable VANVALKENBURG, Starr VICTOR MD Unavailable Unavailable VANVALKENBURG, Starr VICTOR MD Unavailable Unavailable VANVALKENBURG, Starr VICTOR MD Unavailable Unavailable Galicia, Fortino Unavailable Unavailable Galicia, Fortino Unavailable Unavailable Galicia, Fortino Unavailable Unavailable Galicia, Fortino Unavailable Unavailable Galicia, Fortino Unavailable Unavailable Galicia, Fortino Unavailable Unavailable Galicia, Fortino Unavailable Unavailable Galicia, Fortino Unavailable Unavailable Galicia, Fortino Unavailable Unavailable Galicia, Fortino Unavailable Unavailable Galicia, Fortino Unavailable Unavailable Galicia, Fortino Unavailable Unavailable Galicia, Fortino Unavailable Unavailable Galicia, Fortino Unavailable Unavailable Galicia, Fortino Unavailable Unavailable Galicia, Fortino Unavailable Unavailable Aglicia, Fortino Unavailable Unavailable Galicia, Fortino Unavailable Unavailable Galicia, Fortino Unavailable Unavailable Galicia, Fortino Unavailable Unavailable Galicia, Fortino Unavailable Unavailable Galicia, Fortino Unavailable Unavailable Galicia, Fortino Unavailable Unavailable Galicia, Fortino Unavailable Unavailable Galicia, Fortino Unavailable Unavailable Galicia, Fortino Unavailable Unavailable Galicia, Fortino Unavailable Unavailable Galicia, Fortino Unavailable Unavailable Galicia, Fortino Unavailable Unavailable Galicia, Fortino Unavailable Unavailable Galicia, Fortino Unavailable Unavailable Galicia, Fortino Unavailable Unavailable Galicia, Fortino Unavailable Unavailable Galicia, Fortino Unavailable Unavailable Galicia, Fortino Unavailable Unavailable Galicia, Fortino Unavailable Unavailable Galicia, Fortino Unavailable Unavailable Galicia, Fortino Unavailable Unavailable Galicia, Fortino Unavailable Unavailable Galicia, Fortino Unavailable Unavailable Galicia, Fortino Unavailable Unavailable Galicia, Fortino Unavailable Unavailable Galicia, Fortino Unavailable Unavailable Galicia, Fortino Unavailable Unavailable KELLIE, M EILEEN PA Unavailable Unavailable KELLIE, M EILEEN PA Unavailable Unavailable KELLIE, M EILEEN PA Unavailable Unavailable KELLIE, M EILEEN PA Unavailable Unavailable KELLIE, M EILEEN PA Unavailable Unavailable KELLIE, M EILEEN PA Unavailable Unavailable KELLIE, M EILEEN PA Unavailable Unavailable KELLIE, M EILEEN PA Unavailable Unavailable KELLIE, M EILEEN PA Unavailable Unavailable KELLIE, M EILEEN PA Unavailable Unavailable KELLIE, M EILEEN PA Unavailable Unavailable KELLIE, M EILEEN PA Unavailable Unavailable KELLIE, M EILEEN PA Unavailable Unavailable KELLIE, M EILEEN PA Unavailable Unavailable KELLIE, M EILEEN PA Unavailable Unavailable KELLIE, M EILEEN PA Unavailable Unavailable KELLIE, M EILEEN PA Unavailable Unavailable KELLIE, M EILEEN PA Unavailable Unavailable KELLIE, M EILEEN PA Unavailable Unavailable KELLIE, M EILEEN PA Unavailable Unavailable KELLIE, M EILEEN PA Unavailable Unavailable KELLIE, M EILEEN PA Unavailable Unavailable KELLIE, M EILEEN PA Unavailable Unavailable KELLIE, M EILEEN PA Unavailable Unavailable BROOKE Hansen MD Unavailable Unavailable BROOKE Hansen MD Unavailable Unavailable BROOKE Hansen MD Unavailable Unavailable BROOKE Hansen MD Unavailable Unavailable BROOKE Hansen MD Unavailable Unavailable BROOKE Hansen MD Unavailable Unavailable BROOKE Hansen MD Unavailable Unavailable BROOKE Hansen MD Unavailable Unavailable BROOKE Hansen MD Unavailable Unavailable BROOKE Hansen MD Unavailable Unavailable BROOKE Hansen MD Unavailable Unavailable BROOKE Hansen MD Unavailable Unavailable BROOKE Hansen MD Unavailable Unavailable BROOKE Hansen MD Unavailable Unavailable BROOKE Hansen MD Unavailable Unavailable BROOKE Hansen MD Unavailable Unavailable BROOKE Hansen MD Unavailable Unavailable BROOKE Hansen MD Unavailable Unavailable BROOKE Hansen MD Unavailable Unavailable BROOKE Hansen MD Unavailable Unavailable BROOKE Hansen MD Unavailable Unavailable BROOKE Hansen MD Unavailable Unavailable BROOKE Hansen MD Unavailable Unavailable BROOKE Hansen MD Unavailable Unavailable BROOKE Hansen MD Unavailable Unavailable BROOKE Hansen MD Unavailable Unavailable BROOKE Hansen MD Unavailable Unavailable BROOKE Hansen MD Unavailable Unavailable BROOKE Hansen MD Unavailable Unavailable BROOKE Hansen MD Unavailable Unavailable RBOOKE Hansen MD Unavailable Unavailable BROOKE Hansen MD Unavailable Unavailable BROOKE Hansen MD Unavailable Unavailable BROOKE Hansen MD Unavailable Unavailable Mikaela Lakhani MD Unavailable Unavailable Mikaela Lakhani MD Unavailable Unavailable Mikaela Lakhani MD Unavailable Unavailable Mikaela Lakhani MD Unavailable Unavailable Mikaela Lakhani MD Unavailable Unavailable Mikaela Lakhani MD Unavailable Unavailable Mikaela Lakhani MD Unavailable Unavailable Mikaela Lakhani MD Unavailable Unavailable Mikaela Lakhani MD Unavailable Unavailable Mikaela Lakhani MD Unavailable Unavailable Mikaela Lakhani MD Unavailable Unavailable Mikaela Lakhani MD Unavailable Unavailable Mikaela Lakhani MD Unavailable Unavailable Mikaela Lakhani MD Unavailable Unavailable Mikaela Lakhani MD Unavailable Unavailable Mikaela Lakhani MD Unavailable Unavailable Mikaela Lakhani MD Unavailable Unavailable Mikaela Lakhani MD Unavailable Unavailable Mikaela Lakhani MD Unavailable Unavailable Mikaela Lakhani MD Unavailable Unavailable Mikaela Lakhani MD Unavailable Unavailable Mikaela Lakhani MD Unavailable Unavailable Mikaela Lakhani MD Unavailable Unavailable Mikaela Lakhani MD Unavailable Unavailable ALECIA LOVETT MD Unavailable Unavailable ALECIA LOVETT MD Unavailable Unavailable ALECIA LOVETT MD Unavailable Unavailable ALECIA LOVETT MD Unavailable Unavailable ALECIA LOVETT MD Unavailable Unavailable RACHELLALECIA Concepcion MD Unavailable Unavailable ALECIA LOVETT MD Unavailable Unavailable ALECIA LOVETT MD Unavailable Unavailable RACHELLALECIA Concepcion MD Unavailable Unavailable RACHELLALECIA Concepcion MD Unavailable Unavailable RACHELLALECIA Concepcion MD Unavailable Unavailable RACHELLALECIA Concepcion MD Unavailable Unavailable ALECIA LOVETT MD Unavailable Unavailable ALECIA LOVETT MD Unavailable Unavailable RACHELLALECIA Concepcion MD Unavailable Unavailable RACHELLALECIA Concepcion MD Unavailable Unavailable RACHELLALECIA Concepcion MD Unavailable Unavailable RACHELLALECIA Concepcion MD Unavailable Unavailable RACHELLALCEIA Concepcion MD Unavailable Unavailable RACHELLALECIA Concepcion MD Unavailable Unavailable RACHELL, PRYJMA MITCH MD Unavailable Unavailable ALECIA LOVETT MD Unavailable Unavailable RACHELLALECIA MD Unavailable Unavailable RACHELLONELYJUAN MEYER MD Unavailable Unavailable RACHELLALECIA MD Unavailable Unavailable ALECIA LOVETT MD Unavailable Unavailable ALECIA LOVETT MD Unavailable Unavailable ALECIA LOVETT MD Unavailable Unavailable COOPER RUVALCABA MD Unavailable Unavailable COOPER RUVALCABA MD Unavailable Unavailable COOPER RUVALCABA MD Unavailable Unavailable COOPER RUVALCABA MD Unavailable Unavailable COOPER RUVALCABA MD Unavailable Unavailable COOPER RUVALCABA MD Unavailable Unavailable COOPER RUVALCABA MD Unavailable Unavailable COOPER RUVALCABA MD Unavailable Unavailable COOPER RUVALCABA MD Unavailable Unavailable COOPER RUVALCABA MD Unavailable Unavailable COOPER RUVALCABA MD Unavailable Unavailable COOPER RUVALCABA MD Unavailable Unavailable COOPER RUVALCABA MD Unavailable Unavailable COOPER RUVALCABA MD Unavailable Unavailable COOPER RUVALCABA MD Unavailable Unavailable COOPER RUVALCABA MD Unavailable Unavailable COOPER RUVALCABA MD Unavailable Unavailable COOPER RUVALCABA MD Unavailable Unavailable COOPER RUVALCABA MD Unavailable Unavailable COOPER RUVALCABA MD Unavailable Unavailable COOPER RUVALCABA MD Unavailable Unavailable COOPER RUVALCABA MD Unavailable Unavailable COOPER RUVALCABA MD Unavailable Unavailable COOPER RUVALCABA MD Unavailable Unavailable COOPER RUVALCABA MD Unavailable Unavailable COOPER RUVALCABA MD Unavailable Unavailable COOPER RUVALCABA MD Unavailable Unavailable COOPER RUVALCABA MD Unavailable Unavailable COOPER RUVALCABA MD Unavailable Unavailable COOPER RUVALCABA MD Unavailable Unavailable COOPER RUVALCABA MD Unavailable Unavailable COOPER RUVALCABA MD Unavailable Unavailable COOPER RUVALCABA MD Unavailable Unavailable KELLIE, M EILEEN PA Unavailable Unavailable KELLIE, M EILEEN PA Unavailable Unavailable KELLIE, M EILEEN PA Unavailable Unavailable KELLIE, M EILEEN PA Unavailable Unavailable KELLIE, M EILEEN PA Unavailable Unavailable KELLIE, M EILEEN PA Unavailable Unavailable KELLIE, M EILEEN PA Unavailable Unavailable KELLIE, M EILEEN PA Unavailable Unavailable KELLIE, M EILEEN PA Unavailable Unavailable KELLIE, M EILEEN PA Unavailable Unavailable KELLIE, M EILEEN PA Unavailable Unavailable KELLIE, M EILEEN PA Unavailable Unavailable KELLIE, M EILEEN PA Unavailable Unavailable KELLIE, M EILEEN PA Unavailable Unavailable KELLIE, M EILEEN PA Unavailable Unavailable KELLIE, M IELEEN PA Unavailable Unavailable KELLIE, M EILEEN PA Unavailable Unavailable KELLIE, M EILEEN PA Unavailable Unavailable KELLIE, M EILEEN PA Unavailable Unavailable KELLIE, M EILEEN PA Unavailable Unavailable KELLIE, M EILEEN PA Unavailable Unavailable KELLIE, M EILEEN PA Unavailable Unavailable KELLIE, M EILEEN PA Unavailable Unavailable KELLIE, M EILEEN PA Unavailable Unavailable Leija, T Mirza PA-C Unavailable Unavailable Leija, T Mirza PA-C Unavailable Unavailable Leija, T Mirza PA-C Unavailable Unavailable Leija, T Mirza PA-C Unavailable Unavailable Leija, T Mirza PA-C Unavailable Unavailable Leija, T Mirza PA-C Unavailable Unavailable Leija, T Mirza PA-C Unavailable Unavailable Leija, T Mirza PA-C Unavailable Unavailable Leija, T Mirza PA-C Unavailable Unavailable Leija, T Mirza PA-C Unavailable Unavailable Leija, T Mirza PA-C Unavailable Unavailable Leija, T Mirza PA-C Unavailable Unavailable Leija, T Mirza PA-C Unavailable Unavailable Leija, T Mirza PA-C Unavailable Unavailable Leija, T Mirza PA-C Unavailable Unavailable Leija, T Mirza PA-C Unavailable Unavailable Leija, T Mirza PA-C Unavailable Unavailable Leija, T Mirza PA-C Unavailable Unavailable Leija, T Mirza PA-C Unavailable Unavailable Leija, T Mirza PA-C Unavailable Unavailable Leija, T Mirza PA-C Unavailable Unavailable Leija, T Mirza PA-C Unavailable Unavailable Leija, T Mirza PA-C Unavailable Unavailable Leija, T Mirza PA-C Unavailable Unavailable Leija, T Mirza PA-C Unavailable Unavailable Leija, T Mirza PA-C Unavailable Unavailable Leija, T Mirza PA-C Unavailable Unavailable Leija, T Mirza PA-C Unavailable Unavailable Leija, T Mirza PA-C Unavailable Unavailable Leija, T Mirza PA-C Unavailable Unavailable Leija, T Mirza PA-C Unavailable Unavailable Leija, T Mirza PA-C Unavailable Unavailable Leija, T Mirza PA-C Unavailable Unavailable Leija, T Mirza PA-C Unavailable Unavailable Leija, T Mirza PA-C Unavailable Unavailable Leija, T Mirza PA-C Unavailable Unavailable Leija, T Mirza PA-C Unavailable Unavailable Galicia, Fortino Unavailable Unavailable Galicia, Fortino Unavailable Unavailable Galicia, Fortino Unavailable Unavailable Galicia, Fortino Unavailable Unavailable Galicia, Fortino Unavailable Unavailable Galicia, Fortino Unavailable Unavailable Galicia, Fortino Unavailable Unavailable Galicia, Fortino Unavailable Unavailable Galicia, Fortino Unavailable Unavailable Galicia, Fortino Unavailable Unavailable Galicia, Fortino Unavailable Unavailable Galicia, Fortino Unavailable Unavailable Galicia, Fortino Unavailable Unavailable Galicia, Fortino Unavailable Unavailable Galicia, Fortino Unavailable Unavailable Galicia, Fortino Unavailable Unavailable Galicia, Fortino Unavailable Unavailable Galicia, Fortino Unavailable Unavailable Galicia, Fortino Unavailable Unavailable Galicia, Fortino Unavailable Unavailable Galicia, Fortino Unavailable Unavailable Galicia, Fortino Unavailable Unavailable Galicia, Fortino Unavailable Unavailable Galicia, Fortino Unavailable Unavailable Galicia, Fortino Unavailable Unavailable Galicia, Fortino Unavailable Unavailable Galicia, Fortino Unavailable Unavailable Galicia, Fortino Unavailable Unavailable Galicia, Fortino Unavailable Unavailable Galicia, Fortino Unavailable Unavailable Galicia, Fortino Unavailable Unavailable Galicia, Fortino Unavailable Unavailable Galicia, Fortino Unavailable Unavailable Galicia, Fortino Unavailable Unavailable Galicia, Fortino Unavailable Unavailable Galicia, Fortino Unavailable Unavailable Galicia, Fortino Unavailable Unavailable Galicia, Fortino Unavailable Unavailable Galicia, Fortino Unavailable Unavailable Galicia, Fortino Unavailable Unavailable Galicia, Fortino Unavailable Unavailable Galicia, Fortino Unavailable Unavailable Galicia, Fortino Unavailable Unavailable Galicia, Fortino Unavailable Unavailable Jayy WATSON Unavailable Unavailable Kumar, Micky Ochoa MD Unavailable Unavailable Kumar, Micky Ochoa MD Unavailable Unavailable Kumar, Micky Ochoa MD Unavailable Unavailable Kumar, Micky Ochoa MD Unavailable Unavailable Kumar, Micky Ochoa MD Unavailable Unavailable Kumar, Micky Ochoa MD Unavailable Unavailable Kumra, Micky Ochoa MD Unavailable Unavailable Kumar, Micky Ochoa MD Unavailable Unavailable Kumar, Micky Ochoa MD Unavailable Unavailable Kumar, Micky Ochoa MD Unavailable Unavailable Kumar, Micky Ochoa MD Unavailable Unavailable Kumar, Micky Ochoa MD Unavailable Unavailable Kumar, Micky Ochoa MD Unavailable Unavailable Kumar, Micky Ochoa MD Unavailable Unavailable Kumar, Micky Ochoa MD Unavailable Unavailable Kumar, Micky Ochoa MD Unavailable Unavailable Kumar, Micky Ochoa MD Unavailable Unavailable Kumar, Micky Ochoa MD Unavailable Unavailable Kumar, Micky Ochoa MD Unavailable Unavailable Kumar, Micky Ochoa MD Unavailable Unavailable Kumar, Micky Ochoa MD Unavailable Unavailable Kumar, Micky Ochoa MD Unavailable Unavailable Kumar, Micky Ochoa MD Unavailable Unavailable Kumar, Micky Ochoa MD Unavailable Unavailable Kumar, Micky Ochoa MD Unavailable Unavailable Kumar, Micky Ochoa MD Unavailable Unavailable Kumar, Micky Ochoa MD Unavailable Unavailable Kumar, Micky Ochoa MD Unavailable Unavailable Kumar, Micky Ochoa MD Unavailable Unavailable Kumar, Micky Ochoa MD Unavailable Unavailable Kumar, Micky Ochoa MD Unavailable Unavailable Kumar, Micky Ochoa MD Unavailable Unavailable Kumar, Micky Ochoa MD Unavailable Unavailable Kumar, Micky Ochoa MD Unavailable Unavailable Kumar, Micky Ochoa MD Unavailable Unavailable Kumar, Micky Ochoa MD Unavailable Unavailable Kumar, Micky Ochoa MD Unavailable Unavailable Kumar, Micky Ochoa MD Unavailable Unavailable Kumar, Micky Ochoa MD Unavailable Unavailable Kumar, Micky Ochoa MD Unavailable Unavailable Kumar, Micky Ochoa MD Unavailable Unavailable Kumar, Micky Ochoa MD Unavailable Unavailable Kumar, Micky Ochoa MD Unavailable Unavailable Kumar, Micky Ochoa MD Unavailable Unavailable Kumar, Micky Ochoa MD Unavailable Unavailable Kumar, L Don MADRIGAL Unavailable Unavailable KumarMicky glaser MD Unavailable Unavailable PINZON, TAZ MD Unavailable Unavailable PINZON, TAZ MD Unavailable Unavailable PINZON, TAZ MD Unavailable Unavailable PINZON, TAZ MD Unavailable Unavailable PINZON, TAZ MD Unavailable Unavailable PINZON, TAZ MD Unavailable Unavailable PINZON, TAZ MD Unavailable Unavailable PINZON, TAZ MD Unavailable Unavailable PINZON, TAZ MD Unavailable Unavailable PINZON, TAZ MD Unavailable Unavailable PINZON, TAZ MD Unavailable Unavailable PINZON, TAZ MD Unavailable Unavailable PINZON, TAZ MD Unavailable Unavailable PINZON, TAZ MD Unavailable Unavailable PINZON, TAZ MD Unavailable Unavailable PINZON, TAZ MD Unavailable Unavailable PINZON, TAZ MD Unavailable Unavailable PINZON, TAZ MD Unavailable Unavailable PINZON, TAZ MD Unavailable Unavailable PINZON, TZA MD Unavailable Unavailable PINZON, TAZ MD Unavailable Unavailable PINZON, TAZ MD Unavailable Unavailable PINZON, TAZ MD Unavailable Unavailable PINZON, TAZ MD Unavailable Unavailable PINZON, TAZ MD Unavailable Unavailable PINZON, TAZ MD Unavailable Unavailable PINZON, TAZ MD Unavailable Unavailable PINZON, TAZ MD Unavailable Unavailable PINZON, TAZ MD Unavailable Unavailable PINZON, TAZ MD Unavailable Unavailable Re-disclosure Warning The records that you are about to access may contain information from federally-assisted alcohol or drug abuse programs. If such information is present, then the following federally mandated warning applies: This information has been disclosed to you from records protected by federal confidentiality rules (42 CFR part 2). The federal rules prohibit you from making any further disclosure of this information unless further disclosure is expressly permitted by the written consent of the person to whom it pertains or as otherwise permitted by 42 CFR part 2. A general authorization for the release of medical or other information is NOT sufficient for this purpose. The Federal rules restrict any use of the information to criminally investigate or prosecute any alcohol or drug abuse patient.The records that you are about to access may contain highly sensitive health information, the redisclosure of which is protected by Article 27-F of the [facility] Public Health law. If you continue you may have access to information: Regarding HIV / AIDS; Provided by facilities licensed or operated by the [facility] Office of Mental Health; or Provided by the [facility] Office for People With Developmental Disabilities. If such information is present, then the following [facility] mandated warning applies: This information has been disclosed to you from confidential records which are protected by state law. State law prohibits you from making any further disclosure of this information without the specific written consent of the person to whom it pertains, or as otherwise permitted by law. Any unauthorized further disclosure in violation of state law may result in a fine or shelter sentence or both. A general authorization for the release of medical or other information is NOT sufficient authorization for further disc losure. Allergies and Adverse Reactions Type Description Substance Reaction Status Data Source(s ) Drug Class NO KNOWN ALLERGIES NO KNOWN ALLERGIES [facility] Encounters Encounter Providers Location Date Indications Data Source(s ) Outpatient Attender: VAN Hansen MDReferrer: Don Kumar MD ER-CAN 07/27/2020 10:50:[address] [facility] Outpatient [address] [place] [address] 07/22/2020 12:00:00 AM EST eCW1 ([facility]) Outpatient Attender: VAN Hansen MD 07/10/2020 11:20:[address] [facility] ([id number]) TeleVisit [address] [place] [id number] 07/10/2020 12:00:00 AM EST eCW1 ([facility]) Outpatient Attender: Don Kumar MD Physical Therapy 07/08/2020 0 9:00:00 AM EST MEDENT ([facility]) Outpatient [address] [place] [address] 07/07/2020 12:00:00 AM EST eCW1 ([facility]) Preadmit Attender: EILEEN SILVA 07/03/2020 01:53:00 PM [facility] Outpatient Attender: Charlotte DELANEY 07/01/2020 05:01:[address] [facility] Outpatient Attender: COOPER RUVALCABA MD Physical Therapy 11:39:00 AM EST [facility] ([facility]) Outpatient Attender: Charlotte DELANEY 06/25/2020 01:45:[address] [facility] Outpatient [address] [place] [address] 06/25/2020 12:00:00 AM EST eCW1 ([facility]) Outpatient [address] [facility] [address] [place] [address] 06/24/2020 12:00:00 AM EST eCW1 ([facility]) Outpatient Attender: TAZ PINZON MD Physical Therapy 01:15:00 PM EST [facility] ([facility]) Outpatient Referrer: KEEGAN WATSON [id number] 06/03/20 12:00:00 AM EST Pain in left finger(s) [facility] Pain in left finger(s) Outpatient Attender: KEEGAN WATSON [id number] 06/03/2020 12:00:00 AM [facility] Outpatient Attender: EILEEN SILVA 06/02 08:24:00 AM EST - 07/02/2020 01:53:00 PM [facility] Patient discharged. Outpatient Attender: Mikaela Lakhani MD ER-RAD 05/25/2020 01:52:[address] [facility] Outpatient Attender: EILEEN SILVA 05/22 11:57:00 AM EST - 05/27/2020 08:24:00 AM [facility] Patient discharged. Outpatient Attender: EILEEN SILVA Physical Therapy 05/03 09:00:00 AM EST [facility] ([facility]) Outpatient Referrer: KEEGAN WATSON [id number] 05/06/20 12:00:00 AM EST Pain in left finger(s) [facility] Pain in left finger(s) Outpatient Attender: KEEGAN WATSON [id number] 05/06/2020 12:00:00 AM [facility] Outpatient Attender: VAN MCCULLOUGH MDReferrer: Yvan Leija PA-C EMERGENCY ROOM-LABOTHPROV 05/05/2020 08:23:00 AM EST - 05/05/2020 08:23:00 AM [facility] Outpatient [address] [facility] [address] [place] [address] 05/01/2020 12:00:00 AM EDT eCW1 ([facility]) Outpatient [address] [facility] [address] [facility] [place] [address] 04/29/2020 12:00:00 AM EDT eCW1 ([facility]) (AudioFU) Audiology Follow up [address] [address] 04/29/2020 12:00:00 AM EDT eCW1 ([facility]) Outpatient [address] [facility] [address] [place] [address] 04/09/2020 12:00:00 AM EDT eCW1 ([facility]) Outpatient Referrer: KEEGAN WATSON [id number] 04/08/20 12:00:00 AM EDT Pain in left finger(s) [facility] Pain in left finger(s) Outpatient Attender: KEEGAN WATSON [id number] 04/08/2020 12:00:00 AM EDT Primary osteoarthritis, right hand [facility] Primary osteoarthritis, right hand Outpatient Attender: EILEEN SILVA Physical Therapy 03/05 10:30:00 AM EDT [facility] ([facility] ) Outpatient [address] [address] 03/30/2020 12:00:00 AM EDT eCW1 ([facility]) Outpatient Attender: Keegan Watson MD Attender: KEEGAN Peña: Mirza Leija PA-C EMERGENCY ROOM-LABOTHPROV 03/11/2020 11:58:00 AM EDT - 03/11/2020 11:58:00 AM T [facility] Outpatient [address] [place] [address] 03/10/2020 12:00:00 AM EDT eCW1 ([facility]) Outpatient [address] [facility] [address] [place] [address] 03/05/2020 12:00:00 AM EDT eCW1 ([facility]) Outpatient Attender: Mikaela Segura/Terra/Héctor/Ron ndl 02/25/2020 03:00:00 PM EDT [facility] ([facility] ) Outpatient Attender: Surya Segura/Terra/Héctor/Re indl 02/24/2020 09:15:00 AM EDT MED[facility] ([facility], ) Outpatient Attender: KEEGAN WATSON [id number] : VALENTE JIMENEZ MD [id number] 02/12/2020 12:00:00 AM EDT - 02/12/2020 02:18:43 PM ED T Bilateral primary osteoarthritis of first carpometacarpal joints [facility] Bilateral primary osteoarthritis of firs t carpometacarpal joints Outpatient Referrer: KEEGAN WATSON [id number] 02/12/20 12:00:00 AM EDT Pain in right hand [facility] Pain in right hand Outpatient Attender: KEEGAN WATSON [id number]: VALENTE JIMENEZ MD 02/11/2020 12:00:00 AM EDT [facility] Outpatient Attender: EILEEN SILVA Physical Therapy 09/2019 10:15:00 AM EDT [facility] Outpatient Attender: VALENTE HORVATHeferrer : Mitchel Anaya MD [id number] 01/29/2020 12:00:00 AM EDT - 02/13/2020 11:54:27 AM ED T Disorder of bone, unspecified [facility] Disorder of bone, unspecified Outpatient Referrer: VALENTE JIMENEZ MD 01/29/20 12:00:00 AM EDT Disorder of bone, unspecified [facility] Disorder of bone, unspecified Outpatient Referrer: VALENTE JIMENEZ MD 01/29/20 12:00:00 AM EDT Disorder of bone, unspecified [facility] Disorder of bone, unspecified Outpatient Referrer: VALENTE JIMENEZ MD 01/29/20 12:00:00 AM EDT Disorder of bone, unspecified [facility] Disorder of bone, unspecified [address]patient [address] [place], [place] [address] 01/20/2020 12:00:00 AM EDT eCW1 ([facility]) Outpatient [address] [place] [address] 01/16/2020 12:00:00 AM EDT eCW1 ([facility]) Outpatient Attender: EILEEN Steen: Yvan Leija PA-C EMERGENCY ROOM-LABOTHPROV 12/25/2019 12:00:00 PM EDT - 12/25/2019 12:00:00 PM [facility] Outpatient Attender: EILEEN ISLVA Physical Therapy 12/01 02:30:00 PM EDT MED[facility] ([facility]) Outpatient Referrer: Fortino Galicia 12/09/2019 01:57:00 PM E DT [facility] Outpatient Referrer: Fort[place] Galicia 12/09/2019 01:51:00 PM E DT [facility] Outpatient Referrer: [place] Galicia 12/06/2019 09:19:00 AM E DT [facility] [address] [facility] [address] [place] [address] 12/06/2019 12:00:00 AM EDT eCW1 ([facility]) Outpatient Attender: Fortino GaliciaReferrer: Mirza Bonds ams, PA-C EMERGENCY ROOM-LABOTHPROV 12/04/2019 01:15:00 PM EDT - 12/04/2019 01:15:00 PM [facility] Outpatient Referrer: Fortino Galicia 11/28/2019 03:38:00 PM E DT [facility] Outpatient Referrer: Fort[place] Galicia 11/28/2019 03:07:00 PM E DT [facility] Outpatient Referrer: Fortino Galicia 11/28/2019 03:01:00 PM E DT [facility] Outpatient Referrer: Ryan Johnson MD 11/28/2019 02:22:00 PM EDT [facility] OFFICE OUTPATIENT NEW 30 MINUTES Attender: Fortino Galicia Physical Therapy 11/19/2019 03:00:00 PM EDT [facility] ([facility]) [facility] [address] [place] [address] 11/19/2019 12:00:00 AM EDT [facility]CW1 [facility] Office Visit Attender: Don Kumar MD Physical Therapy 2019 01:00:00 PM EDT MED[facility] ([facility]) [facility] [address] [place] [address] 10/30/2019 12:00:00 AM EDT eCW1 ([facility]) [facility] [address] [facility] [address] [place] [address] 10/01/2019 12:00:00 AM EDT eCW1 ([facility]) Outpatient Attender: Mirza GOODMANCAttenantione: MIRZA LEIJA MD ER-RAD 09/16/2019 12:02:00 PM EDT [facility] [address] [facility] [address] [place] [address] 09/13/2019 12:00:00 AM EDT eCW1 ([facility]) [address] [place] [address] 09/13/2019 12:00:00 AM EDT eCW1 ([facility]) [address] [place] [address] 09/11/2019 12:00:00 AM EDT eCW1 ([facility]) [address] [place] [address] 09/09/2019 12:00:00 AM EDT eCW1 ([facility]) [address] [place] [address] 09/04/2019 12:00:00 AM EST eCW1 ([facility]) [address] [place] [address] 08/15/2019 12:00:00 AM EST eCW1 ([facility]) Outpatient Attender: Mirza Leija PA-C 08/14 08:02:00 AM EST - 09/24/2019 02:19:00 PM EDT [facility] Patient discharged. Outpatient Attender: Mitchel Anaya MDReferrer: Ryan wallace MD [id number] 08/02/2019 12:00:00 AM EST Disorder of bone, unspecified [facility] Disorder of bone, unspecified Outpatient Referrer: Mitchel Anaya MD 08/02/2019 12 :00:00 AM EST Disorder of bone, unspecified [facility] Disorder of bone, unspecified Outpatient Attender: Mirza GOODMANCReferrer: Mirza Leija PA-C 07/30/2019 01:21:00 PM EST - 07/30/2019 01:21:00 PM EST [facility] Outpatient Attender: MIRZA LEIJA MD 07/30/2019 08:52:00 AM EST [facility] [address] [place] [address] 07/30/2019 12:00:00 AM EST eCW1 ([facility]) Outpatient Referrer: Ryan Johnson MD 07/18/2019 09:32:00 PM EST [facility] ([place]) [facility] 07/18/2019 12:00:00 AM EST eCW1 ([facility]) Outpatient Attender: MIRZA LEIJA MD 07/02/2019 11:22:00 AM EST [facility] [facility] [address] [place] [address] 07/02/2019 12:00:00 AM EST eCW1 ([facility]) [facility] [address] [place] [address] 06/19/2019 12:00:00 AM EST eCW1 ([facility]) Karina Lovett MD ([place]) Karina Lovett MD ([place]) 06/17/2019 12:00:00 AM EST eCW1 ([facility]) Outpatient Referrer: Ryan Johnson MD 06/11/2019 10:33:00 AM EST [facility] [address] [place] [address] 06/06/2019 12:00:00 AM EST eCW1 ([facility]) Outpatient Attender: Ryan HORVATHeferrer: Roscoe Leija PA-C EMERGENCY ROOM-LAB 06/04/2019 03:14:00 PM EST - 06/04/2019 03:14:00 PM [facility] Outpatient Attender: MIRZA LEIJA MD 06/04/2019 01:33:00 PM EST [facility] [address] [place] [address] 06/04/2019 12:00:00 AM EST eCW1 ([facility]) [facility] ([place]) 06/04/2019 12:00:00 AM EST eCW1 ([facility]) Outpatient Attender: MIRZA LEIJA MD 05/14/2019 02:27:[address] [facility] Outpatient Attender: Ryan Johnson MD 05/03/2019 02:13:00 PM [facility] Outpatient Attender: MITCH LOVETT MD 04/11/2019 09:56:00 AM [facility] Outpatient Attender: VAN MCCULLOUGH MD EMERGENCY ROOM-ULTRA 04/11/2019 07:50:00 AM EDT - 04/11/2019 07:50:00 AM [facility] Outpatient Attender: MIRZA LEIJA MD 03/28/2019 10:17:00 AM [facility] Outpatient Attender: MITCH LOVETT MD 019 10:40:00 AM T - 12/25/2018 10:40:00 AM [facility] Inpatient Attender: DORETHA BELLO MD Attender: MITCH LOVETT MDAdmitter: MITCH LOVETT MD ER-2EAST 12/15/2018 06:38:00 PM EDT - 12/21/2018 04:20:00 PM [facility] Patient discharged. Outpatient Attender: MIRZA LEIJA MD 12/04/2018 01:02:00 PM [facility] Outpatient Attender: MIRZA LEIJA MD ER-HAMMOPS 11/28/2018 08:56:00 AM [facility] Outpatient Attender: MIRZA LEIJA MD 08/01/2018 02:05:[address] [facility] Outpatient Attender: MIRZA LEIJA MD 07/19/2018 01:03:[address] [facility] Immunizations Vaccine Date Status Description Data Source(s) DIPHTHERIA,PERTUSSIS(ACELLULAR),TETANUS VACCINE 05/01/2020 1 2:00:00 AM EDT completed [facility] PNEUMOCOCCAL 13-VALENT CONJUGATE VACCINE (DIPHTHERIA C RM)/PF 04/11/2020 12:00:00 AM EDT completed [facility] INFLUENZA VIRUS VACCINE QUADRIVAL (6 MOS AND UP)/PF 03/13/2020 12:00:00 AM EDT completed [facility] Medications Medication Brand Name Start Date Product Form Dose Route Admi nistrative Instructions Pharmacy Instructions Status Indications Reaction Description Data Source(s) 10 mg 07/27/2020 12:00:00 AM EST tablet 60 TAKE 1 TABLET BY MOUTH EVERY 6 HOURS NEEDED MAXIMUM DAILY DOSE = 4 TABLETS TAKE 1 TABLET BY MOUTH EVERY 6 HOURS NEEDED MAXIMUM DAILY DOSE = 4 TABLETS SOLD: 07/29/2020 [facility] Oxycodone Hydrochloride 10 MG Oral Tablet Oxycodone HC l 10 MG Oxycodone HCl 10 MG 07/27/2020 12:00:00 AM EST 1.0 {tablet_as_needed} active Oxycodone HCl 10 MG eCW1 ([facility]) Mupirocin 0.02 MG/MG Topical Ointment Mupirocin 07/23/2020 12:00:00 AM EST active MEDENT ([facility]) chlorhexidine gluconate 40 MG/ML Medicated Liquid Soap [Hibi clens] Hibiclens 07/23/2020 12:00:00 AM EST active [facility]ENT ([facility]) 2 % 07/23/2020 12:00:00 AM EST ointment 22 APPLY A PEA SIZED AMOUNT TO THE NASAL PASSAGES THREE TIMES A DAY FOR 5 DAYS PRIOR TO SURGERY APPLY A PEA SIZED AMOUNT TO THE NASAL PASSAGES THREE TIMES A DAY FOR 5 DAYS PRIOR TO SURGERY SOLD: 07/26/2020 [facility] Oxycodone Hydrochloride 10 MG Oral Tablet Oxycodone HC l 10 MG Oxycodone HCl 10 MG 07/22/2020 12:00:00 AM EST 1.0 {tablet_as_needed} active Oxycodone HCl 10 MG eCW1 ([facility]) 10 mg 07/10/2020 12:00:00 AM EST tablet 28 TAKE ONE TABLET BY MOUTH EVERY 6 HOURS NEEDED MAXIMUM DAILY DOSE = 4 TAKE ONE TABLET BY MOUTH EVERY 6 HOURS A S NEEDED MAXIMUM DAILY DOSE = 4 SOLD: 07/10/2020 [facility] Oxycodone Hydrochloride 10 MG Oral Tablet Oxycodone HC l 10 MG Oxycodone HCl 10 MG 07/10/2020 12:00:00 AM EST 1.0 {tablet_as_needed} active Oxycodone HCl 10 MG eCW1 ([facility]) Oxycodone Hydrochloride 10 MG Oral Tablet Oxycodone HC l 10 MG Oxycodone HCl 10 MG 07/10/2020 12:00:00 AM EST 1.0 {tablet_as_needed} active Oxycodone HCl 10 MG eCW1 ([facility]) 600 mg 07/09/2020 12:00:00 AM EST tablet 90 TAKE ONE TABLET BY MOUTH THREE TIMES A DAY NEEDED TAKE ONE TABLET BY MOUTH THREE TIMES A DAY NEEDED S OLD: 07/10/2020 [facility] gabapentin 600 MG Oral Tablet Gabapentin 07/08/2020 12:00:00 AM EST active [facility] ([facility]) celecoxib 200 MG Oral Capsule [Celebrex] Celebrex 07/08/2020 12 :00:00 AM EST ORAL active [facility]ENT ([facility]) 200 mg 07/08/2020 12:00:00 AM EST capsule 30 TAKE 2 CAPSULES BY MOUTH DAILY FOR 5 DAYS, THEN DECREASE TO ONCE DAILY TAKE 2 CAPSULES BY MOUTH DAILY FOR 5 DAYS, THEN DECREASE TO ONCE DAILY SOLD: 07/10/2020 [facility] Lidocaine 5 % Lidocaine 5 % 07/01/2020 12:00:00 AM EST active Lidocaine 5 % eCW1 ([facility]) Lidocaine 5 % Lidocaine 5 % 07/01/2020 12:00:00 AM EST active Lidocaine 5 % eCW1 ([facility]) Senna 8.6 MG Senna 8.6 MG 07/01/2020 12:00:00 AM EST 2 .0 {tablets_at_bedtime_as_needed} active S brendan 8.6 MG eCW1 ([facility]) 5 mg 07/01/2020 12:00:00 AM EST tablet 28 TAKE ONE TABLET BY MOUTH EVERY 6 HOURS MAXIMUM DAILY DOSE =4 TAKE ONE TABLET BY MOUTH EVERY 6 HOURS M AXIMUM DAILY DOSE =4 SOLD: 07/02/2020 [facility] Senna 8.6 MG Senna 8.6 MG 07/01/2020 12:00:00 AM EST 2 .0 {tablets_at_bedtime_as_needed} active S brendan 8.6 MG eCW1 ([facility]) Senna 8.6 MG Senna 8.6 MG 07/01/2020 12:00:00 AM EST 2 .0 {tablets_at_bedtime_as_needed} active S brendan 8.6 MG eCW1 ([facility]) Lidocaine 5 % Lidocaine 5 % 07/01/2020 12:00:00 AM EST active Lidocaine 5 % eCW1 ([facility]) 5 % 07/01/2020 12:00:00 AM EST adhesive patch,medicate d 14 APPLY ONE PATCH TOPICALLY ONCE DAILY REMOVE AFTER 12 HOURS APPLY ONE PATCH TOPICALLY ONCE DAILY REMOVE AFTER 12 HOURS SOLD: 07/02/2020 [facility] Senna 8.6 MG Senna 8.6 MG 07/01/2020 12:00:00 AM EST 2 .0 {tablets_at_bedtime_as_needed} active S brendan 8.6 MG eCW1 ([facility]) Lidocaine 5 % Lidocaine 5 % 07/01/2020 12:00:00 AM EST active Lidocaine 5 % eCW1 ([facility]) 17 gram 06/29/2020 12:00:00 AM EST powder in packet 14 MIX ONE PACKET IN FLUID AND DRINK ONCE DAILY MIX ONE PACKET IN FLUID AND DRINK ONCE DAILY SOLD: 06/29/2020 [facility] 30 mg 06/29/2020 12:00:00 AM EST capsule,delayed release (DR/EC) 30 TAKE ONE CAPSULE BY MOUTH AT BEDTIME TAKE ONE CAPSULE BY MOUTH AT BEDTIME SOLD: 06/29/2020 [facility] 20 mg 06/25/2020 12:00:00 AM EST tablet 9 TAKE 2 TABLETS BY MOUTH EVERY DAY FOR 3 DAYS, THEN TAKE 1 TABLET EVERY DAY FOR 3 DAYS, TAKE WITH FOOD OR MILK TAKE 2 TABLETS BY MOUTH EVERY DAY FOR 3 DAYS, THEN TAKE 1 TABLET EVERY DAY FOR 3 DAYS, TAKE WITH FOOD OR MILK SOLD: 06/25/2020 [facility] Acetaminophen 325 MG / Oxycodone Hydroch loride 5 MG Oral Tablet Oxycodone- Acetaminophen 5-325 MG Oxycodone-Acetaminophen 5-325 MG 06/25/2020 12:00:00 A M EST 1.0 {tablet_as_needed} active O xycodone-Acetaminophen 5-325 MG eCW1 ([facility]) 5-325 mg 06/25/2020 12:00:00 AM EST tablet 20 TAKE ONE TABLET BY MOUTH EVERY 6 HOURS NEEDED MAXIMUM DAILY DOSE = 4 TAKE ONE TABLET BY MOUTH EVERY 6 HOURS NEEDED MAXIMUM DAILY DOSE = 4 SOLD: 06/25/2020 [facility] 600 mg 06/24/2020 12:00:00 AM EST tablet 60 TAKE ONE TABLET BY MOUTH TWICE A DAY TAKE ONE TABLET BY MOUTH TWICE A DAY SOLD: 06/24/2020 [facility] 5-325 mg 06/24/2020 12:00:00 AM EST tablet 12 TAKE ONE TABLET BY MOUTH EVERY 6 HOURS NEEDED FOR PAIN, MAXIMUM DAILY DOSE = 4 TABLETS TAKE ONE TABLET BY MOUTH EVERY 6 HOURS NEEDED FOR PAIN, MAXIMUM DAILY DOSE = 4 TABLETS SOLD: 06/24/2020 [facility] 90 mcg/actuation 06/18/2020 12:00:00 AM EST HFA aerosol inha ler 18 INHALE 1 PUFF BY MOUTH EVERY 6 HOURS NEEDED INHALE 1 PUFF BY MOUTH EVERY 6 HOURS NEEDED SOLD: 06/20/2020 [facility] 100 mg 06/11/2020 12:00:00 AM EST tablet 45 TAKE ONE-HALF TABLET BY MOUTH EVERY DAY TAKE ONE-HALF TABLET BY MOUTH EVERY DAY SOLD: 06/11/2020 [facility] 1 ML Triamcinolone Acetonide 40 MG/ML Pr efilled Syringe triamcinolone acetonide (KENALOG-40) injection 40 mg triamcinolone acetonide (KENALOG-40) inj ection 40 mg 06/03/2020 01:30:00 PM EST 40 mg Intra-articular co mpleted 40 mg, Intra-articular, Once, Mon06/03/20 at 1330, For 1 dose [facility] Medication administered onsite 80 mcg/actuation 05/08/2020 12:00:00 AM EST HFA aerosol inha ler 10 INSTILL 2 SPRAYS INTO EACH NOSTRIL ONCE A DAY INSTILL 2 SPRAYS INTO EACH NOSTRIL ONCE A DAY SOLD: 05/11/2020 [facility] 100 mg 04/01/2020 12:00:00 AM EDT tablet 45 TAKE ONE-HALF TABLET BY MOUTH EVERY DAY TAKE ONE-HALF TABLET BY MOUTH EVERY DAY SOLD: 04/03/2020 [facility] 5 mg 03/26/2020 12:00:00 AM EDT tablet 42 TAKE ONE TABLET BY MOUTH EVERY 4 HOURS NEEDED UP TO 7 DAYS MAXIMUM DAILY DOSE = 6 TAKE ONE TABLET BY MOUTH EVERY 4 HOURS NEEDED UP TO 7 DAYS MAXIMUM DAILY DOSE = 6 SOLD: 03/26/2020 [facility] 8 mg 03/26/2020 12:00:00 AM EDT tablet 20 TAKE ONE TABLET BY MOUTH EVERY 8 HOURS NEEDED FOR NAUSEA / VOMITING FOR UP TO 7 DAYS TAKE ONE TABLET BY MOUTH EVERY 8 HOURS NEEDED FOR NAUSEA / VOMITING FOR UP TO 7 DAYS SOLD: 03/26/2020 [facility] 650 mg 03/26/2020 12:00:00 AM EDT tablet extended release 60 TAKE ONE TABLET BY MOUTH EVERY 8 HOURS NEEDED FOR PAIN FOR UP TO 10 DAYS TAKE ONE TABLET BY MOUTH EVERY 8 HOURS NEEDED FOR PAIN FOR UP TO 10 DAYS SOLD: 03/26/2020 [facility] 650 mg 03/26/2020 12:00:00 AM EDT tablet extended release 60 TAKE ONE TABLET BY MOUTH EVERY 8 HOURS NEEDED FOR PAIN FOR UP TO 10 DAYS TAKE ONE TABLET BY MOUTH EVERY 8 HOURS NEEDED FOR PAIN FOR UP TO 10 DAYS SOLD: 07/02/2020 [facility] 600 mg 03/26/2020 12:00:00 AM EDT tablet 60 TAKE ONE TABLET BY MOUTH EVERY 6 HOURS NEEDED FOR PAIN FOR UP TO 10 DAYS TAKE ONE TABLET BY MOUTH EVERY 6 HOURS NEEDED FOR PAIN FOR UP TO 10 DAYS SOLD: 03/26/2020 [facility] Colchicine 0.6 MG Oral Tablet Colchicine 0.6 MG Oral Tablet 01/29/2020 12:00:00 AM EDT 0.6 mg Oral active Take 1 t ablet by mouth daily Take 1 tabs first day. Discontinue after symptoms resolve. [facility] 0.6 mg 01/29/2020 12:00:00 AM EDT tablet 30 TAKE ONE TABLET BY MOUTH EVERY DAY DIRECTED . TAKE 1 TABLET THE FIRST DAY, AND THEN DISCONTINUE AFTER SYMPTOMS RESOLVE TAKE ONE TABLET BY MOUTH EVERY DAY DI RECTED . TAKE 1 TABLET THE FIRST DAY, AND THEN DISCONTINUE AFTER SYMPTOMS RESOLVE SOLD: 01/29/2020 [facility] 200 mg 01/27/2020 12:00:00 AM EDT capsule 60 TAKE ONE CAPSULE BY MOUTH TWICE A DAY WITH FOOD TAKE ONE CAPSULE BY MOUTH TWICE A DAY WITH FOOD SOLD: 01/29/2020 [facility] Losartan Potassium 100 MG Oral Tablet Lo sartan Potassium 100 MG Oral Tablet (COZAAR) Losartan Potassium 100 MG Oral Tablet (COZAAR) 12:00:00 AM EDT 100 mg Oral active Take 100 mg by mo [facility] 200 mg 11/20/2019 12:00:00 AM EDT capsule 60 TAKE 1 CAPSULE BY MOUTH TWO TIMES A DAY WITH FOOD TAKE 1 CAPSULE BY MOUTH TWO TIMES A DAY WITH FOOD SOLD : 11/21/2019 [facility] 200 mg 10/31/2019 12:00:00 AM EDT capsule 30 TAKE ONE CAPSULE BY MOUTH EVERY DAY WITH FOOD TAKE ONE CAPSULE BY MOUTH EVERY DAY WITH FOOD SOLD: 01/21/2020 [facility] 200 mg 10/31/2019 12:00:00 AM EDT capsule 30 TAKE ONE CAPSULE BY MOUTH EVERY DAY WITH FOOD TAKE ONE CAPSULE BY MOUTH EVERY DAY WITH FOOD SOLD: 10/31/2019 [facility] 10 mg 10/30/2019 12:00:00 AM EDT tablet 60 TAKE ONE TABLET BY MOUTH TWICE A DAY NEEDED MAXIMUM DAILY DOSE = 2 TAKE ONE TABLET BY MOUTH TWICE A DAY NEEDED MAXIMUM DAILY DOSE = 2 SOLD: 10/31/2019 [facility] 100 mg 09/22/2019 12:00:00 AM EDT tablet 90 TAKE 1 TABLET BY MOUTH ONCE A DAY TAKE 1 TABLET BY MOUTH ONCE A DAY SOLD: 09/24/2019 [facility] 100 mg 09/22/2019 12:00:00 AM EDT tablet 90 TAKE 1 TABLET BY MOUTH ONCE A DAY TAKE 1 TABLET BY MOUTH ONCE A DAY SOLD: 12/09/2019 [facility] 600 mg 08/16/2019 12:00:00 AM EST tablet 60 TAKE ONE TABLET BY MOUTH TWICE A DAY TAKE ONE TABLET BY MOUTH TWICE A DAY SOLD: 11/11/2019 [facility] 600 mg 08/16/2019 12:00:00 AM EST tablet 60 TAKE ONE TABLET BY MOUTH TWICE A DAY TAKE ONE TABLET BY MOUTH TWICE A DAY SOLD: 08/16/2019 [facility] gabapentin 600 MG Oral Tablet Gabapentin 600 MG Gabapentin 6 00 MG 08/16/2019 12:00:00 AM EST active 1 tablet eCW1 ([facility]) 600 mg 08/16/2019 12:00:00 AM EST tablet 60 TAKE ONE TABLET BY MOUTH TWICE A DAY TAKE ONE TABLET BY MOUTH TWICE A DAY SOLD: 09/20/2019 [facility] gabapentin 600 MG Oral Tablet Gabapentin 600 MG Gabapentin 6 00 MG 08/16/2019 12:00:00 AM EST 1.0 {tablet} active Ga bapentin 600 MG eCW1 ([facility]) gabapentin 600 MG Oral Tablet Gabapentin 600 MG Gabapentin 6 00 MG 08/16/2019 12:00:00 AM EST 1.0 {tablet} active Ga bapentin 600 MG eCW1 ([facility]) gabapentin 600 MG Oral Tablet Gabapentin 600 MG Gabapentin 6 00 MG 08/16/2019 12:00:00 AM EST 1.0 {tablet} active Ga bapentin 600 MG eCW1 ([facility]) gabapentin 600 MG Oral Tablet Gabapentin 600 MG Gabapentin 6 00 MG 08/16/2019 12:00:00 AM EST 1.0 {tablet} active Ga bapentin 600 MG eCW1 ([facility]) gabapentin 600 MG Oral Tablet Gabapentin 600 MG Gabapentin 6 00 MG 08/16/2019 12:00:00 AM EST 1.0 {tablet} active Ga bapentin 600 MG eCW1 ([facility]) gabapentin 600 MG Oral Tablet Gabapentin 600 MG Gabapentin 6 00 MG 08/16/2019 12:00:00 AM EST 1.0 {tablet} active Ga bapentin 600 MG eCW1 ([facility]) gabapentin 600 MG Oral Tablet Gabapentin 600 MG Gabapentin 6 00 MG 08/16/2019 12:00:00 AM EST 1.0 {tablet} active Ga bapentin 600 MG eCW1 ([facility]) gabapentin 600 MG Oral Tablet Gabapentin 600 MG Gabapentin 6 00 MG 08/16/2019 12:00:00 AM EST 1.0 {tablet} active Ga bapentin 600 MG eCW1 ([facility]) gabapentin 600 MG Oral Tablet Gabapentin 600 MG Gabapentin 6 00 MG 08/16/2019 12:00:00 AM EST 1.0 {tablet} active Ga bapentin 600 MG eCW1 ([facility]) gabapentin 600 MG Oral Tablet Gabapentin 600 MG Gabapentin 6 00 MG 08/16/2019 12:00:00 AM EST 1.0 {tablet} active Ga bapentin 600 MG eCW1 ([facility]) gabapentin 600 MG Oral Tablet Gabapentin 600 MG Gabapentin 6 00 MG 08/16/2019 12:00:00 AM EST 1.0 {tablet} active Ga bapentin 600 MG eCW1 ([facility]) gabapentin 600 MG Oral Tablet Gabapentin 600 MG Gabapentin 6 00 MG 08/16/2019 12:00:00 AM EST 1.0 {tablet} active Ga bapentin 600 MG eCW1 ([facility]) gabapentin 600 MG Oral Tablet Gabapentin 600 MG Gabapentin 6 00 MG 08/16/2019 12:00:00 AM EST 1.0 {tablet} active Ga bapentin 600 MG eCW1 ([facility]) gabapentin 600 MG Oral Tablet Gabapentin 600 MG Gabapentin 6 00 MG 08/16/2019 12:00:00 AM EST 1.0 {tablet} active Ga bapentin 600 MG eCW1 ([facility]) 5 mg 08/06/2019 12:00:00 AM EST tablet 90 TAKE 1 TABLET BY MOUTH ONCE A DAY TAKE 1 TABLET BY MOUTH ONCE A DAY SOLD: 08/06/2019 [facility] 5 mg 08/06/2019 12:00:00 AM EST tablet 90 TAKE 1 TABLET BY MOUTH ONCE A DAY TAKE 1 TABLET BY MOUTH ONCE A DAY SOLD: 11/05/2019 [facility] 20 mg 07/30/2019 12:00:00 AM EST tablet 29 TAKE ONE TABLET BY MOUTH THREE TIMES A DAY WITH FOOD FOR 5 DAYS THEN TAKE ONE TABLET BY MOUTH TWICE A DAY FOR 5 DAYS THEN TAKE ONE TABLET BY MOUTH EVERY DAY FOR 4 DAYS TAKE ONE TABLET BY MOUTH THREE TIMES A DAY WITH FOOD FOR 5 DAYS THEN TAKE ONE TABLET BY MOUTH TWICE A DAY FOR 5 DAYS THEN TAKE ONE TABLET BY MOUTH EVERY DAY FOR 4 DAYS SOLD: 07/30/2019 [facility] Prednisone 20 MG Oral Tablet PredniSONE 20 MG PredniSONE 20 MG 07/30/2019 12:00:00 AM EST 1.0 {tablet_with_food} active PredniSONE 20 MG eCW1 ([facility]) Prednisone 20 MG Oral Tablet PredniSONE 20 MG PredniSONE 20 MG 07/30/2019 12:00:00 AM EST 1.0 {tablet_with_food} active PredniSONE 20 MG eCW1 ([facility]) Prednisone 20 MG Oral Tablet PredniSONE 20 MG PredniSONE 20 MG 07/30/2019 12:00:00 AM EST suspended Predn iSONE 20 MG eCW1 ([facility]) Prednisone 20 MG Oral Tablet PredniSONE 20 MG PredniSONE 20 MG 07/30/2019 12:00:00 AM EST suspended Predn iSONE 20 MG eCW1 ([facility]) Prednisone 20 MG Oral Tablet PredniSONE 20 MG PredniSONE 20 MG 07/30/2019 12:00:00 AM EST suspended Predn iSONE 20 MG eCW1 ([facility]) Prednisone 20 MG Oral Tablet PredniSONE 20 MG PredniSONE 20 MG 07/30/2019 12:00:00 AM EST active 1 tablet with food eCW1 ([facility]) Prednisone 20 MG Oral Tablet PredniSONE 20 MG PredniSONE 20 MG 07/30/2019 12:00:00 AM EST 1.0 {tablet_with_food} active PredniSONE 20 MG eCW1 ([facility]) Prednisone 20 MG Oral Tablet PredniSONE 20 MG PredniSONE 20 MG 07/30/2019 12:00:00 AM EST 1.0 {tablet_with_food} active PredniSONE 20 MG eCW1 ([facility]) Prednisone 20 MG Oral Tablet PredniSONE 20 MG PredniSONE 20 MG 07/30/2019 12:00:00 AM EST active PredniSO NE 20 MG eCW1 ([facility]) Prednisone 20 MG Oral Tablet PredniSONE 20 MG PredniSONE 20 MG 07/30/2019 12:00:00 AM EST 1.0 {tablet_with_food} active PredniSONE 20 MG eCW1 ([facility]) Prednisone 20 MG Oral Tablet PredniSONE 20 MG PredniSONE 20 MG 07/30/2019 12:00:00 AM EST suspended Predn iSONE 20 MG eCW1 ([facility]) Prednisone 20 MG Oral Tablet PredniSONE 20 MG PredniSONE 20 MG 07/30/2019 12:00:00 AM EST 1.0 {tablet_with_food} active PredniSONE 20 MG eCW1 ([facility]) Prednisone 20 MG Oral Tablet PredniSONE 20 MG PredniSONE 20 MG 07/30/2019 12:00:00 AM EST 1.0 {tablet_with_food} active PredniSONE 20 MG eCW1 ([facility]) Prednisone 20 MG Oral Tablet PredniSONE 20 MG PredniSONE 20 MG 07/30/2019 12:00:00 AM EST 1.0 {tablet_with_food} active PredniSONE 20 MG eCW1 ([facility]) Prednisone 20 MG Oral Tablet PredniSONE 20 MG PredniSONE 20 MG 07/30/2019 12:00:00 AM EST 1.0 {tablet_with_food} active PredniSONE 20 MG eCW1 ([facility]) Albuterol Sulfate HFA 108 (90 Base) MCG/ ACT Inhalation Aerosol Solution (PROVENTIL HFA) 5106-8835-05 06/23/2019 12:00:00 AM EST active INHALE ONE PUFF BY MOUTH EVERY 6 HOURS NEEDED [facility] 90 mcg/actuation 06/23/2019 12:00:00 AM EST HFA aerosol inha ler 18 INHALE ONE PUFF BY MOUTH EVERY 6 HOURS NEEDED INHALE ONE PUFF BY MOUTH EVERY 6 HOURS NEEDED SOLD: 06/24/2019 [facility] Azelastine HCl 0.1 % Nasal Solution (ASTELIN) [address]-6 06/19/2019 12:00:00 AM EST active [facility] Beclomethasone Dipropionate 80 MCG/ACT Nasal Aerosol Solutio n (Qnasl) [id number] 06/16/2019 12:00:00 AM EST active [facility] 2.5 mcg/actuation 06/06/2019 12:00:00 AM EST mist 12 INHALE 2 PUFFS BY MOUTH ONCE ADAY INHALE 2 PUFFS BY MOUTH ONCE ADAY SOLD: 05/04/2020 [facility] Spiriva Respimat 3.125 ug/1 UNK 06/06/2019 12:00:00 AM EST active Spiriva Respimat 3.125 ug/1 eCW1 ([facility]) Tiotropium [place] Monohydrate 2.5 MCG/A CT Inhalation Aerosol Solution (Spiriva Respimat) [id number] 06/06/2019 12:00:00 AM EST active [facility] Spiriva Respimat 3.125 ug/1 UNK 06/06/2019 12:00:00 AM EST active Spiriva Respimat 3.125 ug/1 eCW1 ([facility]) Spiriva Respimat 3.125 ug/1 UNK 06/06/2019 12:00:00 AM EST active Spiriva Respimat 3.125 ug/1 eCW1 ([facility]) Spiriva Respimat 3.125 ug/1 UNK 06/06/2019 12:00:00 AM EST active Spiriva Respimat 3.125 ug/1 eCW1 ([facility]) 200 mg 06/06/2019 12:00:00 AM EST capsule 90 TAKE ONE CAPSULE BY MOUTH EVERY DAY WITH FOOD TAKE ONE CAPSULE BY MOUTH EVERY DAY WITH FOOD SOLD: 06/07/2019 [facility] 2.5 mcg/actuation 06/06/2019 12:00:00 AM EST mist 12 INHALE 2 PUFFS BY MOUTH ONCE ADAY INHALE 2 PUFFS BY MOUTH ONCE ADAY SOLD: 06/07/2019 [facility] Spiriva Respimat 3.125 ug/1 UNK 06/06/2019 12:00:00 AM EST active Spiriva Respimat 3.125 ug/1 eCW1 ([facility]) Spiriva Respimat 3.125 ug/1 UNK 06/06/2019 12:00:00 AM EST active Spiriva Respimat 3.125 ug/1 eCW1 ([facility]) Spiriva Respimat 3.125 ug/1 UNK 06/06/2019 12:00:00 AM EST active Spiriva Respimat 3.125 ug/1 eCW1 ([facility]) Spiriva Respimat 3.125 ug/1 UNK 06/06/2019 12:00:00 AM EST active 2 inhalations eCW1 ([facility]) Spiriva Respimat 3.125 ug/1 UNK 06/06/2019 12:00:00 AM EST active Spiriva Respimat 3.125 ug/1 eCW1 ([facility]) Spiriva Respimat 3.125 ug/1 UNK 06/06/2019 12:00:00 AM EST active Spiriva Respimat 3.125 ug/1 eCW1 ([facility]) Spiriva Respimat 3.125 ug/1 UNK 06/06/2019 12:00:00 AM EST active Spiriva Respimat 3.125 ug/1 eCW1 ([facility]) celecoxib 200 MG Oral Capsule [Celebrex] CeleBREX 200 MG Oral Capsule CeleBREX 200 MG Oral Capsule 06/06/2019 12:00:00 AM EST act [facility] Spiriva Respimat 3.125 ug/1 UNK 06/06/2019 12:00:00 AM EST active Spiriva Respimat 3.125 ug/1 eCW1 ([facility]) Spiriva Respimat 3.125 ug/1 UNK 06/06/2019 12:00:00 AM EST active Spiriva Respimat 3.125 ug/1 eCW1 ([facility]) Spiriva Respimat 3.125 ug/1 UNK 06/06/2019 12:00:00 AM EST active 2 inhalations eCW1 ([facility]) Spiriva Respimat 3.125 ug/1 UNK 06/06/2019 12:00:00 AM EST active 2 inhalations eCW1 ([facility]) Spiriva Respimat 3.125 ug/1 UNK 06/06/2019 12:00:00 AM EST active Spiriva Respimat 3.125 ug/1 eCW1 ([facility]) 200 mg 06/06/2019 12:00:00 AM EST capsule 90 TAKE ONE CAPSULE BY MOUTH EVERY DAY WITH FOOD TAKE ONE CAPSULE BY MOUTH EVERY DAY WITH FOOD SOLD: 05/04/2020 [facility] Spiriva Respimat 3.125 ug/1 UNK 06/06/2019 12:00:00 AM EST active Spiriva Respimat 3.125 ug/1 eCW1 ([facility]) 2.5-2.5 mcg/actuation 05/12/2019 12:00:00 AM EST mist 1 2 INHALE TWO PUFFS BY MOUTH EVERY DAY INHALE TWO PUFFS BY MOUTH EVERY DAY SOLD: 05/04/2020 [facility] 100 mg 03/28/2019 12:00:00 AM EDT tablet 90 TAKE ONE TABLET BY MOUTH EVERY DAY TAKE ONE TABLET BY MOUTH EVERY DAY SOLD: 06/24/2019 [facility] 5 mg 02/07/2019 12:00:00 AM EDT tablet 30 TAKE ONE TABLET BY MOUTH EVERY DAY TAKE ONE TABLET BY MOUTH EVERY DAY SOLD: 07/09/2019 [facility] 5 mg 02/07/2019 12:00:00 AM EDT tablet 30 TAKE ONE TABLET BY MOUTH EVERY DAY TAKE ONE TABLET BY MOUTH EVERY DAY SOLD: 06/10/2019 [facility] 200 mg 01/23/2019 12:00:00 AM EDT capsule 30 TAKE ONE CAPSULE BY MOUTH EVERY DAY WITH FOOD TAKE ONE CAPSULE BY MOUTH EVERY DAY WITH FOOD SOLD: 09/20/2019 [facility] 200 mg 01/23/2019 12:00:00 AM EDT capsule 30 TAKE ONE CAPSULE BY MOUTH EVERY DAY WITH FOOD TAKE ONE CAPSULE BY MOUTH EVERY DAY WITH FOOD SOLD: 08/20/2019 [facility] Acetaminophen 325 MG / Hydrocodone Tai trate 5 MG Oral Tablet HYDROcodone- Acetaminophen 5-325 MG Oral Tablet (LORTAB) HYDROcodone-Acetaminophen 5-325 MG Oral Tablet (LORTAB) 08/28/2015 12:00:00 AM EST {tbl} Oral aborted Take 1-2 tablets by mouth [facility] Acetaminophen 325 MG / Oxycodone Hydroch loride 5 MG Oral Tablet oxycodone- acetaminophen (PERCOCET) 5-325 MG per tablet oxycodone-acetaminophen (PERCOCET) 5-325 MG per tablet 06/27/2015 12:00:00 AM EST abo rted [facility] Ibuprofen 200 MG Oral Tablet Ibuprofen 200 MG Oral Tab let (MOTRIN) Ibuprofen 200 MG Oral Tablet (MOTRIN) 200 mg Oral aborted Take 200 mg by mouth [facility] Providers Payer name Policy type / Coverage type Policy ID Covered libertarian ID Covered libertarian's relationship to palmer Policy Palmer Plan Information [place] 302/307 [id number] [id number] BLUE CROSS [id number] WIF [id number] BLUE CROSS [id number] WIF [id number] BLUE CROSS [id number] WIF [id number] [place] [id number] SPO [id number] [place] [id number] SPO [id number] [id number] EXCELLUS BCBS B [id number] O [id number] [id number] EXCELLUS C [id number] Spouse [id number] [place] [id number] SPO [id number] [id number] EXCELLUS BLUE CROSS [id number] CO [id number] EXCELLUS H [id number] [facility] [id number] ANSI-Commercial [id number] ANSI-Commercial [id number] ANSI-Commercial [id number] ANSI-Commercial [id number] ANSI-Commercial [id number] ANSI-Commercial [id number] ANSI-Commercial [id number] ANSI-Commercial [id number] [place] PPO 302/307 [id number] SP [id number] [facility] [id number] 82 [id number] ANSI-Commercial [id number] [facility] [id number] S [id number] ANSI-Commercial [id number] ANSI-Commercial [id number] [facility] PHYSICIAN [id number] S [id number] ANSI-Commercial [id number] ANSI-Commercial [id number] ANSI-Commercial [id number] ANSI-Commercial [id number] ANSI-Commercial [id number] ANSI-Commercial [id number] [facility] COMM HMO [id number] S [id number] BLUE CROSS [id number] [facility] [id number] [facility] PHYSICIAN [id number] S [id number] [facility] PHYSICIAN [id number] S [id number] [facility] O [id number] S [id number] [facility] [id number] SP [id number] [facility] [id number] SP [id number] [facility] IMPROVE. SHERRIU O [id number] S [id number] [employer] UNK SP U NK EXCELLUS BCBS B [id number] O [id number] [place] PPO 302/307 [id number] WI2 [id number] SELF PAY UNAVAILABLE SP UNAVAILA BLE BLUE CROSS [id number] WIF [id number] BLUE CROSS [id number] S [id number] BLUE CROSS [id number] S [id number] Problems, Conditions, and Diagnoses Code Display Name Description Problem Type Effective Dates Data Source(s) M54.31 [id number] Sciatica of right side Problem 07/30/2019 12 :00:00 AM [place] [address] ([facility]) M54.31 [id number] Sciatica of right side Problem 07/30/2019 12 :00:00 AM [place] [address] ([facility]) J84.112 [id number] Idiopathic pulmonary fibrosis Problem 06/04/2019 12:00:00 AM [place] [address] ([facility]) J84.112 [id number] Idiopathic pulmonary fibrosis Problem 06/04/2019 12:00:00 AM [place] [address] ([facility]) M54.31 Sciatica, right side SCIATICA, RIGHT SIDE Diagnosis 07/10/2020 11:20:[address] [facility] M51.37 Other intervertebral disc degeneration, lumbosacral region OTHER INTERVERTEBRAL DISC DEGENERATION, Diagnosis 06/11/2020 11:59:00 PM [facility] M79.645 Pain in left finger(s) Pain in left finger(s) Diagnosi s 06/03/2020 12:58:28 PM [facility] J84.10 Pulmonary fibrosis, unspecified PULMONARY FIBROS IS, UNSPECIFIED Diagnosis 05/25/2020 01:52:[address] [facility] M48.01 Spinal stenosis, huvjkjol-ycxskrs-zlnmq region SPINAL STENOSIS, JNUPUQCJ-QLWRYWX-MMUVD REGION Diagnosis 05/22/2020 03:26:00 PM [facility] M43.16 Spondylolisthesis, lumbar region SPONDYLOLISTHES IS, LUMBAR REGION Diagnosis 05/22/2020 03:26:00 PM [facility] M51.87 Other intervertebral disc disorders, lum bosacral region OTHER INTERVERTEBRAL DISC DISORDERS, LUM Diagnosis 05/22/2020 03:26:00 PM [facility] M51.26 Other intervertebral disc displacement, lumbar region OTHER INTERVERTEBRAL DISC DISPLACEMENT, Diagnosis 05/22/2020 03:26:00 PM [facility] 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, lumbosacral region SPONDYLS W/O MYELOPATHY OR RADICULOPATHY, LUMBOSACR REGION Diagnosis 05/22/2020 03:26:00 PM [facility] R06.02 Shortness of breath SHORTNESS OF BREATH Diagnosis 1 07/05/2019 08:23:00 AM [facility] I10 Essential (primary) hypertension ESSENTIAL (PRIMARY) H YPERTENSION Diagnosis 05/05/2020 08:23:00 AM [facility] Z01.818 Encounter for other preprocedural examin ation ENCOUNTER FOR OTHER PREPROCEDURAL EXAMINATION Diagnosis 03/11/2020 11:58:00 AM [facility]ital M19.042 Primary osteoarthritis, left hand Primary osteoa rthritis, left hand Diagnosis 02/12/2020 12:35:12 PM [facility] M19.041 Primary osteoarthritis, right hand Primary osteo arthritis, right hand Diagnosis 02/12/2020 12:35:12 PM [facility] 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 Bilateral primary osteoarthritis of first carpometacarpal joints Diagnosis 02/12/2020 12:35:03 PM [facility] M79.642 Pain in left hand Pain in left hand Diagnosis 02/11 11:52:06 AM [facility] M79.641 Pain in right hand Pain in right hand Diagnosis 06/2020 11:52:06 AM [facility] 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, chelly mbosacral region OTHER SPONDYLOSIS WITH RADICULOPATHY, CHELLY Diagnosis 12/25/2019 12:00:00 PM [facility] M48.061 SPINAL STENOSIS, LUMBAR REGION WITHOUT N SPINAL STENOSIS, LUMBAR REGION WITHOUT N Diagnosis 12/25/2019 12:00:00 PM [facility] l Z01.812 Encounter for preprocedural laboratory e xamination ENCOUNTER FOR PREPROCEDURAL LABORATORY EXAMINATION Diagnosis 12/25/2019 12:00:00 PM [facility] M54.16 Radiculopathy, lumbar region RADICULOPATHY, LUMBAR REG ION Diagnosis 12/04/2019 01:15:00 PM [facility] M51.26 Other intervertebral disc displacement, lumbar region OTHER INTERVERTEBRAL DISC DISPLACEMENT, LUMBAR REG Diagnosis 0 12:02:00 PM [facility] M51.37 Other intervertebral disc degeneration, lumbosacral region OTHER INTERVERTEBRAL DISC DEGENERATION, LUMBOSACRA Diagnosis 0 12:02:00 PM [facility] Z98.890 OTHER SPECIFIED POSTPROCEDURAL STATES OT HER SPECIFIED POSTPROCEDURAL STATES Diagnosis 08/13/2019 10:32:00 AM [facility] l G89.29 Other chronic pain Other chronic pain Diagnosis 02:29:14 PM [facility] M79.671 Pain in right foot Pain in right foot Diagnosis 02:29:14 PM [facility] M89.9 Disorder of bone, unspecified Disorder of bone, unspec ified Diagnosis 08/02/2019 02:28:57 PM [facility] M54.5 Low back pain LOW BACK PAIN Diagnosis 07/30/2019 01:21:00 PM [facility] M54.41 Lumbago with sciatica, right side LUMBAGO WITH S CIATICA, RIGHT SIDE Diagnosis 07/30/2019 08:52:[address] [facility] M76.891 Other specified enthesopathies of right lower limb, excluding foot OTH ENTHESOPATHIES OF RIGHT LOWER LIMB, EXCLUDING FOOT Diagnosis 11:22:[address] [facility] Surgeries/Procedures Procedure Description Date Indications Data Source(s) X-Ray Spine Lumbosacral Complete Inc Bending Views Min Of 6 07/08/2020 12:00:00 AM EST [facility] ([facility]) Injec Anesthetic Agent/Steroid Trans Epidural Lumb/Sacral Si ngle 06/29/2020 12:00:00 AM EST [facility] ([facility] ) Injec Anesthetic Agent/Steroid Trans Epidural Lumb/Sacral Ea Addl 06/29/2020 12:00:00 AM EST [facility] ([facility] ) Epidurography Radiological Supervision & Interpretation 06/29/2020 12:00:00 AM EST [facility] Moderate Sedation Services; Same Phys Intl 15 Mins; PT >= 5 Years 06/29/2020 12:00:00 AM EST [facility] Spirometry 06/05/2020 12:00:00 AM EST [facility] ([facility], ) Maximum Breathing Capacity, Maximal Voluntary Ventilation 06/05/2020 12:00:00 AM EST [facility] ([facility] ) Plethysmography Determination Lung Volumes & Per Airway Resi st 06/05/2020 12:00:00 AM EST [facility] ([facility], ) DIFFUSING CAPACITY 06/05/2020 12:00:00 AM EST [facility] ([facility], ) RADEX ANKLE COMPLETE MINIMUM 3 VIEWS 06/04/2020 12:00: 00 AM EST [facility] ([facility] ) RADEX FOOT COMPLETE MINIMUM 3 VIEWS 06/04/2020 12:00:0 0 AM EST [facility] ([facility] ) Pulmonary Stress Testing, Inc Measurement Heart Rate, Oximet ry 06/02/2020 12:00:00 AM EST [facility] ([facility], ) Bone density scan (procedure) 05/25/2020 12:00:[address] [facility] ([facility], ) Injec Anesthetic Agent/Steroid Trans Epidural Lumb/Sacral Si ngle 04/27/2020 12:00:00 AM EDT [facility] ([facility] ) Injec Anesthetic Agent/Steroid Trans Epidural Lumb/Sacral Ea Addl 04/27/2020 12:00:00 AM EDT [facility] ([facility] ) Epidurography Radiological Supervision & Interpretation 04/27/2020 12:00:00 AM EDT [facility] ([facility] ) Moderate Sedation Services; Same Phys Intl 15 Mins; PT >= 5 Years 04/27/2020 12:00:00 AM EDT [facility] ([facility] ) Bronchospasm Evaluation 02/25/2020 12:00:00 AM EDT [facility] ([facility], ) Maximum Breathing Capacity, Maximal Voluntary Ventilation 02/25/2020 12:00:00 AM EDT [facility] ([facility]) Plethysmography Determination Lung Volumes & Per Airway Resi st 02/25/2020 12:00:00 AM EDT [facility] ([facility], ) DIFFUSING CAPACITY 02/25/2020 12:00:00 AM EDT [facility] ([facility], ) SURGERY CASE REQUEST OUTSIDE FACILITY ONLY SURGERY CA SE REQUEST OUTSIDE FACILITY ONLY Routine 02/12/2020 12:37 PM EDT Arthritis of finger of both hands 02/12/2020 12:37:03 PM EDT Arthritis of finger of both hands [facility] Arthritis of finger of both hands Injec Anesthetic Agent/Steroid Trans Epidural Lumb/Sacral Si ngle 01/13/2020 12:00:00 AM EDT [facility] ([facility] ) Injec Anesthetic Agent/Steroid Trans Epidural Lumb/Sacral Ea Addl 01/13/2020 12:00:00 AM EDT [facility] ([facility] ) Epidurography Radiological Supervision & Interpretation 01/13/2020 12:00:00 AM EDT [facility] Moderate Sedation Services; Same Phys Intl 15 Mins; PT >= 5 Years 01/13/2020 12:00:00 AM EDT [facility] ([facility] ) Results ID Date Data Source [id number] 07/27/2020 12:19:00 PM EST [facility] Exam Number: [id number] OF EXAMINATIO N: 07/27/2020 11:43 ESTCHEST, TWO VIEWSHISTORY: PreopTECHNIQUE: PA and lateral radiographs of the chestCOMPARISON: 12/21/2018FINDINGS:Today's study reveals faint ill-defined patchy parenchymal disease inboth lower lobes left upper lobe. Cardiac silhouette and pulmonaryvascularity is within normal limits. There is no effusion.IMPRESSION:Faint patchy parenchymal disease within both lungs. Evaluation forpossible Covid infection should be consideredElectronically signed in PS360 by: Lawrence John M.D. 1/25/661589:07 EST Reported By: Brianne JOHN M.D. Signed By: Mahin JOHN M.D. Name Value Range Interpretation Code Description Data [facility](s) Supporting Document(s) ID Date Data Source [id number] 07/27/2020 02:24:00 PM EST [facility] Name Value Range Interpretation Code Description Data [facility](s) Supporting Document(s) GLU 95 mg/dL 70-110 [facility] Patients taking Sulfasalazine may have f alsely depressedGlucose levels. Patients taking Sulfapyridine may havefalsely elevated Glucose levels. Patients should be drawnfor Glucose before the initial administration of eitherdrug. BUN 19 mg/dL 7-23 [facility] CRE 1.090 mg/dL 0.500-1.300 [facility] GFR > 60 mL/min [facility] CHLORIDE 106 mmol/L 99-110 [facility] NA 141 mmol/L 136-147 [facility] POTASSIUM 4.6 mmol/L 3.5-5.1 [facility] TCO2 29 mmol/L 20-33 [facility] ANION GAP 10.6 10.0-20.0 [facility] CA 8.8 mg/dL 8.3-10.7 [facility] ALKALINE PHOS 169 U/L 45-117 [facility] TP 7.1 g/dL 6.0-7.8 [facility] ALB 3.9 g/dL 3.5-5.0 [facility] ESRD Dialysis patient Albumin reference range: 2.9-4.4 g/dL GL 3.2 g/dL 2.3-3.5 [facility] A/G 1.2 1.0-2.5 [facility] T. BILIRUBIN 0.8 mg/dL 0.1-1.1 [facility] The Dimension [place] Total Bilirubin is n ot recommended forpatients undergoing treatment with eltrombopag (Promacta)due to the potential for falsely elevated results. ALTI 43 U/L 6-54 [facility] Patients taking Sulfasalazine and/or Sul fapyridine may havefalsely depressed ALT levels. Patients should be drawn forALT before the initial administration of either drug. AST 27 U/L 8-40 [facility] Patients taking Sulfasalazine and/or Sul fapyridine may havefalsely depressed AST levels. Patients should be drawn forAST before the initial administration of either drug. ID Date Data Source [id number] 07/27/2020 01:59:00 PM [facility]agulants [facility] pt. [facility] ?? UNKNOW N Name Value Range Interpretation Code Description Data Vickie rce(s) Supporting Document(s) INR 0.94 0.91-1.09 [facility] INR THERAPEUTIC RANGES Prophylaxis of ve nous thrombosis ] (high risk surgery) ]Treatment of venous thrombosis ]Treatment of pulmonary embolism ]Prevention of systemic embolism ] 2.0-3.0Tissue heart valves ]Acute myocardial infarction ]Valvular disease ]Atrial fibrillation ]Recurrent systemic embolism ] Mechanical prosthetic heart valves -------- 2.5-3.5 ID Date Data Source [id number] 07/27/2020 01:58:00 PM EST [facility] Name Value Range Interpretation Code Description Data Vickie rce(s) Supporting Document(s) WBC 6.35 x10E3/uL 4.0-10.5 [facility] RBC 4.77 x10E6/uL 4.70-6.00 [facility] Hemoglobin 15.3 g/dL 14.0-18.0 [facility] Hematocrit 44.7 % 42.0-52.0 [facility] MCV 93.7 fL 81.0-99.0 [facility] MCH 32.1 pg 27.0-31.0 [facility] MCHC 34.2 g/dL 32.7-35.6 [facility] RDW 12.3 % 11.5-14.0 [facility] Platelet count 259 x10E3/uL 150-450 [facility] ital MPV 8.4 fl 6.9-9.5 [facility] Neutrophils 37.5 % 34-64 [facility] Lymphocytes 49.0 % 25-45 [facility] Monocytes 9.4 % 1.7-10.6 N [facility] Eosinophils 3.3 % 0.4-7.0 N [facility] Basophils 0.5 % 0.1-2.0 N [facility] Imm. Gran. 0.3 % 0.1-2.0 N [facility] Abs. Neutro. 2.38 x10E3/uL 1.2-7.6 [facility] Abs. Lymph. 3.11 x10E3/uL 1.0-3.5 [facility] Abs. [place]. 0.60 x10E3/uL 0.1-1.0 [facility] Abs. Eosin. 0.21 x10E3/uL 0.1-0.7 [facility] Abs. Baso. 0.03 x10E3/uL 0.0-0.1 [facility] Abs. Imm. Gran. 0.02 x10E3/uL 0.0-0.1 N [facility] spital ANRBC% 0 % 0 [facility] ID Date Data Source [id number] 07/23/2020 03:33:00 PM EST [facility] Name Value Range Interpretation Code Description Data Vickie rce(s) Supporting Document(s) Laboratory test finding (navigational concept) Laboratory test result [facility] ([facility]) ID Date Data Source [id number] 06/27/2020 07:09:00 PM EST [facility] Name Value Range Interpretation Code Description Data Vickie rce(s) Supporting Document(s) SARS coronavirus 2 RNA [Presence] in Res piratory specimen by MELANI with probe detection [facility] This lab was ordered by [facility] a nd reported by [facility]. ID Date Data Source [id number] 06/24/2020 10:00:00 AM EST [facility] Name Value Range Interpretation Code Description Data Vickie rce(s) Supporting Document(s) Coronavirus 2019 Nasopharygeal Laboratory test result [facility] ([facility]) This nucleic acid amplification test was developed and its performance characteristics determined by [employer]. Nucleic acid amplification tests include PCR and [...] detected) result in this assay. Performed at: [facility] [email or web address], [place] [id number] Copyright Expert: Angela Lee PhD, Phone: [phone] Not Detected ID Date Data Source [id number] 06/24/2020 10:00:00 AM EST [facility] Name Value Range Interpretation Code Description Data Vickie rce(s) Supporting Document(s) SARS coronavirus 2 RNA [facility] This lab was ordered by [facility] and reported by [facility]. ID Date Data Source [id number] 06/16/2020 12:00:00 AM EST [facility]y Imaging Dewey Lakhani MD Patient Name: YAHIR [id number] Date [facility] 1955[facility] [place] [address] Date of Exam: 06/16/2020#: Fax: [phone] EXAM: CHEST (2 VIEW) X-RAYCLINICAL INFORMATION: Chest pain.Two views. These images were obtained using digital radiography.Comparison is 05/15/2019.Scattered interstitial fibrotic changes are stable. There is mild biapicalpleural thickening which is also stable. No superimposed acute infiltrateis visualized. The heart is normal in size. The mediastinal silhouette isunchanged. There are mild degenerative changes of the spine.I MPRESSION:Stable chronic findings as above.HECTOR Cabello/Dc you for referring KARINA ROWE to our office. Electronically Signed - TEQUILA HENSON MD 06/16/20 16:07 Name Value Range Interpretation Code Description Data Vickie rce(s) Supporting Document(s) ID Date Data Source [id number] 06/03/2020 04:53:05 PM [facility] XR FINGERS [id number] RESULTInterpreted by:RAQUEL Fayelinical history: Status post left index finger fusionViews: 4 views left index fingerIndication: Check for healingFindings: The patient has a small AccuTrack screw securing a distal interphalangeal joint fusion left index finger in extended position. Fusion healing appears complete at this time. Hardware appears solid without evidence of loosening.Impression: Status post fusion left index finger DIP joint with complete healingThis document has been electronically signed by Darrian Smiley MD on 06/03/2020 4:50 PM Name Value Range Interpretation Code Description Data Vickie rce(s) Supporting Document(s) ID Date Data Source [id number] 06/03/2020 04:41:38 PM [facility] Name Value Range Interpretation Code Description Data Vickie rce(s) Supporting Document(s) Progress Note [facility] FJZGBr6kHaMAOnDq50/NVHmaAJKph0WkVZocSOg9TGmsJHJzF0VmFEA6rL4hCLU1BSkPPoZaMtCtWmZf [facility] [file] [id number]+JXqgfLYqhAoaLQRMPiQoHmk6VFnpYOPIRo1U ID Date Data Source [id number] 05/25/2020 12:39:00 PM EST [facility] Exam Number: [id number] OF EXAMINATIO N: 05/25/2020 9:56 ESTESOPHOGRAMHISTORY: DysphagiaFLUOROSCOPY TIME: 1 minute 28 secondsNUMBER OF IMAGES: 25Preliminary purchase order checker view of the chest appears unremarkable.The esophagus displays normal peristaltic activity throughout. Thereis no evidence for any diverticula, inflammatory changes, fillingdefects, hiatal hernia, or gastroesophageal reflux. A normal mucosalpattern is noted throughout.IMPRESSION:Unremarkable esophagram exam.Electronically signed in PS360 by: Lawrence John M.D. 05/25/202012:27 EST Reported By: Brianne JOHN M.D. Signed By: Mahin JOHN M.D. Name Value Range Interpretation Code Description Data Vickie rce(s) Supporting Document(s) ID Date Data Source [id number] 05/06/2020 06:11:52 PM EST [facility] XR FINGERS [id number] RESULTInterpreted by:RAQUEL Fayelinical history: Status post left index finger fusionViews: 4 views left index fingerIndication: Check for healingFindings: The patient has a small AccuTrack screw securing a distal interphalangeal joint fusion left index finger in extended position. Fusion healing appears complete at this time. Hardware appears solid without evidence of loosening.Impression: Status post fusion left index finger DIP joint with complete healingThis document has been electronically signed by Darrian Smiley MD on 05/06/2020 6:09 PM Name Value Range Interpretation Code Description Data Vickie rce(s) Supporting Document(s) ID Date Data Source [id number] 05/06/2020 04:10:28 PM [facility] Name Value Range Interpretation Code Description Data Vickie rce(s) Supporting Document(s) Progress Note [facility] IETRSr7gMoJBFwQd45/CDQhrWKUwm4BmXYppGIo0YMycAIZqV5NzDJY8mF5kHVZ7LLjLVlNmXzDkWPB0 lbm HwFkpOVjTzFRCyTufMTeSwJDzjHpqzyURlVK9ZiPP9TYZrQ28eGUXvVUXgQ3EqWIN4ZGC+Zj7DDREubF IaBV1PTkuE4A3axvn9ZI1p9U8CuBUwWxet3AbKunY1zjqK9SLsu6vM7xwTDdvKvQX5IVRym6+5Cslg6x /lPRH23cwCWvSLi+A5p1JVDA5+E0e+n4hFjI8md/qh Xq0C5es/idVjtlo+tvrKHiIvKCuw/GRG7Nzhb88errttkI9NCVf421oLUbG6daqMBP/p9V0hI5E4xSKq HWL1Yx3Ii5MpWyg6/YhP0Y0cL3712qVJkmnZqA8A66enlMhfoIWtb07jLssBX+nZS+DSJGDlr+QlJn2j TFsmBdGBSauTGefYmuAJvROvSAg5BBX9MPD5l/BT2K cYsRGpTTCaQXDUfDBkmJGOUnj4sHdS+jOPo/JbdQHYr9EEsI7y3pcfpwsIh7i1RA71TSE8l77prUd3sd AdgbYGty68C0VCTgpjWJnHi20gj2vW3owp7Zc48MaiRbpGedfZhDGPjpAK0RRgdtvC5U/kDNeSy9r0k2 T4trNk1H3GyP+8OniQ7wgN+cNIF1NKQOQliMrofurT 5U5941w6dTiWY56ZQkbMbTCZh3V8fCj1tZnr/hHo0DsgqsQDtf6hzBwJR8JDBmQDAtjCla7qzNoZb8Dq MEq8F0xEAmk4UD7EgOGVm5aIbx7IQMHdW+GjcKPDQZLXq3dgWSsYAJ2vHaOts7lzZMvFtjLyAn/IcUnb GtqdbrnhO2kOp2qRh2kHwQ9l/DIacZkiWfrZDNUB04 KvcDxnx6Ul12Qg4TLCDvSLaGxXJPegVLcLG9/sjNtcV1CKffNAnT/P/IdX3z49V1te935MMFabLXrSXR Jane/Cbc5unhP0ZoTal6hhdqTx5u+NwgSbtE1cLjDekWbnIdMcqeSkpclP3M6UOYDMQfwPYhrJKa6F+MA [file] ICAgICAgICAgICAgICAgICAgICAgICAgICAgICAgICAgICAgICAgICAgICAgICAgICAgICAgICAgICAg ICAgICAgICAgICAgICAgICANCiAgICAgICAgICAgICAgICAgICAgICAgICAgICAgICAgICAgICAgICAg ICAgICAgICAgICAgICAgICAgICAgICAgICAgICAgIC AgICAgICAgICAgICAgICAgICAgICAgICAgICANCiAgICAgICAgICAgICAgICAgICAgICAgICAgICAgIC AgICAgICAgICAgICAgICAgICAgICAgICAgICAgICAgICAgICAgICAgICAgICAgICAgICAgICAgICAgIC AgICAgICAgICANCiAgICAgICAgICAgICAgICAgICAg ICAgICAgICAgICAgICAgICAgICAgICAgICAgICAgICAgICAgICAgICAgICAgICAgICAgICAgICAgICAg ICAgICAgICAgICAgICAgICAgICANCiAgICAgICAgICAgICAgICAgICAgICAgICAgICAgICAgICAgICAg ICAgICAgICAgICAgICAgICAgICAgICAgICAgICAgIC AgICAgICAgICAgICAgICAgICAgICAgICAgICAgICANCiAgICAgICAgICAgICAgICAgICAgICAgICAgIC AgICAgICAgICAgICAgICAgICAgICAgICAgICAgICAgICAgICAgICAgICAgICAgICAgICAgICAgICAgIC AgICAgICAgICAgICANCiAgICAgICAgICAgICAgICAg ICAgICAgICAgICAgICAgICAgICAgICAgICAgICAgICAgICAgICAgICAgICAgICAgICAgICAgICAgICAg ICAgICAgICAgICAgICAgICAgICAgICANCiAgICAgICAgICAgICAgICAgICAgICAgICAgICAgICAgICAg ICAgICAgICAgICAgICAgICAgICAgICAgICAgICAgIC AgICAgICAgICAgICAgICAgICAgICAgICAgICAgICAgICANCiAgICAgICAgICAgICAgICAgICAgICAgIC AgICAgICAgICAgICAgICAgICAgICAgICAgICAgICAgICAgICAgICAgICAgICAgICAgICAgICAgICAgIC AgICAgICAgICAgICAgICANCiAgICAgICAgICAgICAg ICAgICAgICAgICAgICAgICAgICAgICAgICAgICAgICAgICAgICAgICAgICAgICAgICAgICAgICAgICAg ICAgICAgICAgICAgICAgICAgICAgICAgICANCjw/uHGkS7mzwITjowY1U0ktCf7GLe0GUY4pa7MwYHKm MKhunbUyGbgWOeZtBKZzGenLNib5AThiXN0DaWIsC5 SrI5UnNXoqXR8UOWAmHKRbpIOxCQVuTALcIqY8ZSDvZEntDW8KcUWxPQumHCEgGXQzBJ6VQGYjD392rq AgWW7AZn7NXhOnIQ0lcn7UDaDkVACiMmaACaw2EIqbAY5HtBCleFQoNuJcSSSHXjZcV1wxa3SbLnQzCQ TMLMudKP8Zq2YiaKCwEJe+Lm8QQS9sg6DrKSyuCgRl LP2oer1VOSjEPoUkE1QmxOtsDAKmu6bmDVRuLA2eaIDzJAF4GC7uW1zdQMbgEgWGZ2gjBWJlGZGIHZGi rTJkSJ08SvYmNuSuXIQ5XNZxMS7xKMvuEG6BLWL7WPglRLHzTOWnB8nNEeQjFLNoMVWbeArtDU5FKfHa T3DbtkFhlUMfDRAkZJBHHf3+JIzguzOpJanWEcL7BA Fcb8KnRVq7SH5LDYSxJKttUD0XVQObcN7nHEokME0GOnXdUbVlKPAGSnFfN38bhBBpYOy5I6VeKeAeYP VkRmlsZXMgPDwvTmFtZXMgWyBdDQogID4+ID4+ZHepHG6HSEwrfxTsGMVeBu5THITlJTTgBO9vISIuOK RsR0I1oWqtAIHIIgNhZ6lripkkDS9gKMJjI337hCxa ltDbGEF5OAHxIo5EKJEmRTF1ZIFutGMyKzKtLQRZUCifYO1XjDXrDSA8aF8tSYeuBVUsPTZhK8gDBbVr lVmoJR91hTjlxwMuoKIuHEw+Mc1KTE0xx4VdTSg5cpUmRPegROS9CKmbZPBfVPHnUQFuXYO4ZIZ3HGBZ ZgXqPHSlESMqCKsuXBMoTUDolv3VRWJeCFXmQQNtYE SjRPZpUPPbHEciLMOvWEToUER9ZSUiTJIhNN9EGuYkEEZpIAYfTKngLMKdNONvjv5GDAAwEPLmGrBwBB WxVUFzRVFyAUtbCJUaYDRyJWF0RYVnOBFzFZ0IFeErBAGsLTZfSNHjZNXcRPSfsg3OXNXiLLRgVRR8EK TwEKUrYZSuTSpcVKBoDNM5CbujXRDyCIJmGZ4GWtPi DNOwZUP9DshvJFOnQAJmax5EMQWhLHSaPOvwGCTwCVWgTQXpXHiyWOQxTZX7EMX8HPMdBMPpTJ5GHyLo DTJiZAd3SRinBMQdJCCasg5MFBOvFGBeFzn0LmFzOUFvQNPgYXmuYWErVEO9JSmjJNYxUXUmFQ8TGtGd ZLTpCTgoVvPaMWKsHNTmsb6IAXXoYBZbENQ9EdPrOL QqUMMsOEigLODrJXN6JITfWJQdJLPxRF9GFeBjPPQrOZv8ZLwsQHSwLFWctr4LVOLsRDYbGSb2GuJxOJ OcUPKpYSlcKXLqVHUuZnUdIFLwGSTrWP9EKqStEHQxQtE1QVGmVIXvNJQdwb0XWXZgQIFcFUT6DyMbPC MaVUJlPZhsNXGuJEDmWUI2KRPgHLJqBD9RJwLuTWXm HoB8MHWnLNGdYYBuso0ILFVeFFIfDaCfKFCwALOjETZyHXkaJRWjKJIxXTf2YCVeAZGrOH3SAvDtMRzf FHLEBba5DFvgJ8j6EPAoUX8VK9Yfd4BkRlmlPYCLDDyyMX0nnmCnAYTdKb3DB4rDTbf1YWQpZZzqYad4 ABiaIBUaDVR1HBOlUNUeTcMlKaYhUQ4hAQRtWrVkJ1 ZbCEPdCBLfDZVaHUTmPWS0HsSoNgR4HROxDrXkIX2ZTp7MEhL1XRG1jYFnEc2NOnK0NwPAReCoVC1DWZ o= ID Date Data Source [id number] 05/05/2020 09:10:00 AM [facility] FAX [phone] Name Value Range Interpretation Code Description Data Vickie rce(s) Supporting Document(s) CHOLESTEROL 170 mg/dL 0-200 [facility] TRIGLYCERIDES 60 mg/dL 0-150 [facility] LDL CHOLESTEROL 100 mg/dL 0-100 [facility] HDL CHOLESTEROL 58 mg/dL 40-60 [facility] CHOL/HDL RATIO 2.9 0.0-5.0 [facility] ID Date Data Source [id number] 04/22/2020 12:00:00 PM EDT [facility] ([facility]) Name Value Range Interpretation Code Description Data Vickie rce(s) Supporting Document(s) Coronavirus 2019 Nasopharygeal Laboratory test result [facility] ([facility]) This nucleic acid amplification test was developed and its performance characteristics determined by [employer]. Nucleic acid amplification tests include PCR and [...] detected) result in this assay. Performed at: - [facility] [address] [id number] Copyright Expert: Naa Livingston MD, Phone: [phone] Not Detected ID Date Data Source [id number] 04/22/2020 12:00:00 PM EDT [facility] Name Value Range Interpretation Code Description Data Vickie rce(s) Supporting Document(s) SARS coronavirus 2 RNA [facility] This lab was ordered by [facility] and reported by [facility]. ID Date Data Source [id number] 04/10/2020 02:21:31 PM EDT [facility] XR FINGERS [id number] RESULTInterpreted by:RAQUEL Fayelinical history: Status post left index finger fusionViews: 4 views left index fingerIndication: Check for healingFindings: The patient has a small AccuTrack screw securing a distal interphalangeal joint fusion left index finger in extended position. Fusion healing appears moderate at this time. Hardware appears solid without evidence of loosening.Impression: Status post fusion left index finger DIP joint with moderate healingThis document has been electronically signed by Darrian Smiley MD on 04/10/2020 2:19 PM Name Value Range Interpretation Code Description Data Vickie rce(s) Supporting Document(s) ID Date Data Source [id number] 04/08/2020 05:21:49 PM EDT [facility] Name Value Range Interpretation Code Description Data Vickie rce(s) Supporting Document(s) Progress Note [facility] FFTXOw0kThAAXxRd58/SEFueQCLgn8FkFBptIBv3LQzlJPXlK6NnZAC7iV3tCMC8NKqGPmXeDhNkAFV0 lbm [file] Gr9MYhH0IGF7nBNrQo8VVxFmUHJGIaIzQH2BUBs= ID Date Data Source [id number] 03/23/2020 12:00:00 AM EDT [facility] Name Value Range Interpretation Code Description Data Vickie rce(s) Supporting Document(s) SARS coronavirus 2 RNA [Presence] in Res piratory specimen by MELANI with probe detection [facility] This [facility] and reported by [facility]. ID Date Data Source [id number] 03/11/2020 01:14:00 PM EDT [facility] l Name Value Range Interpretation Code Description Data Vickie rce(s) Supporting Document(s) GLUCOSE 103 mg/dL 74-106 [facility] BLOOD UREA NITROGEN 16 mg/dL 7-18 [facility] ital CREATININE 1.0 mg/dL 0.7-1.3 [facility] SODIUM 139 mmol/L 136-145 [facility] POTASSIUM 4.5 mmol/L 3.5-5.1 [facility] CHLORIDE 101 mmol/L 98-107 [facility] CO2 29 mmol/L 21-32 [facility] CALCIUM 9.2 mg/dL 8.5-10.1 [facility] ANION GAP 9.0 mmol/L 5-12 [facility] GLOMERULAR FILTRATION RATE 76 mL/min [facility] GFR IS CALCULATED IN mL/min/1.73m2 FELICIA L FUNCTION: >90MILDLY DECREASED: 60-89MILDY TO MODERATELY DECREASED: 45-59 MODERATELY TO SEVERELY DECREASED: 30-44SEVERELY DECREASED: 15-29RENAL FAILURE: <15 ID Date Data Source [id number] 02/29/2020 04:01:06 PM EDT [facility] XR HAND 3 OR MORE VIEWS [id number] RESUL TInterpreted by:Darrian Smiley MDClinical history: Bilateral hand painViews: 4 views bilateral handsIndication: Check for sources of pain bilateral hands.Findings: 4 views of the left hand reveal normal osseous anatomy distal forearm bones as well as the proximal distal carpal rows. Degenerative change of the left thumb basal joint is appreciated. Metacarpals have normal osseous anatomy and MCP joints are well preserved. Osseous anatomy the phalanges of all 5 digits appears normal however there is some degenerative change at the left thumb IP joint and marked degeneration at the left thumb distal interphalangeal joint.4 views of the right hand reveal normal osseous anatomy the distal forearm bones as well as proximal and distal carpal rows. Advanced degenerative change of the right thumb basal joint is noted. Metacarpals of digits 2 through 5 appear normal and there is good preservation of MCP joint spaces. Osseous anatomy the phalanges of all 5 d igits is normal with no evidence of fracture. There is some mild degenerative change at the thumb IP joint as well as more moderate change at the index and middle finger DIP joints.Impression: Degenerative changes bilateral hands as detailed aboveThis document has been electronically signed by Darrian Smiley MD on 02/29/2020 3:58 PM Name Value Range Interpretation Code Description Data Vickie rce(s) Supporting Document(s) ID Date Data Source [id number] 02/12/2020 01:25:09 PM EDT [facility] Name Value Range Interpretation Code Description Data [facility] rce(s) Supporting Document(s) Progress Note [facility] YNENRe5uUdICSlEo31/ENIfwRQGve1ApSBfbJXh7REvyOOFmM4MqTOV4oX0tBMR3HAuLPvFvAyGhNPCh [facility] [file] hlCfPEBerGKZ8EUwh2Sh34fVioxOAsEi9/G/zb9/Pharmacy Intake Technician [file] 4QPNWtOmRGCtGySV5RXKu= ID Date Data Source [id number] 02/04/2020 09:18:46 AM EDT [facility] Name Value Range Interpretation Code Description Data Ivckie rce(s) Supporting Document(s) Progress Note [facility] USRAQg2lLcLXYmBe32/RMGejBSOom6RcEPccRGj0GAptAYIwJ6SyFQY2eI4lPMS3DNcOCkXlZcAsHRZ4 lbm [file] IstJl7KiSJNO3eU8wASywDcURxo96r6ZY8jj1IIYWdAbZ1QXK/sourcing manager+Mhi3TgBIoaEW+yfmE7uB4h9sSh [file] YndDMfAxBF8CDVm= ID Date Data Source [id number] 01/30/2020 06:57:15 AM EDT [facility] XR ANKLE 2 VIEWS [id number] RESULTInterp reted by:JOANIE Vega CALCANEUS, FOOT AND ANKLECLINICAL STATEMENT: Pain. Initial encounter.TECHNIQUE: 2 views the right calcaneus. 3 views of the right foot. 2 views of the right ankle.COMPARISON: 08/02/2019.FINDINGS: No acute fracture or dislocation is identified. The ankle mortise is congruent.The joint spaces are preserved and the articular margins are smooth.A benign-appearing cystic lesion is again noted within the calcaneus.No suspicious expansile lytic or blastic osseous lesion is identified.The visualized soft tissues are within normal limits.IMPRESSION:No acute fracture or dislocation. Benign-appearing cystic lesion involving the calcaneus.This document has been electronically signed by Jose Leo MD on 01/30/2020 6:55 AM Name Value Range Interpretation Code Description Data Vickie rce(s) Supporting Document(s) ID Date Data Source [id number] 01/30/2020 06:57:15 AM EDT [facility] XR FOOT 3 OR MORE VIEWS [id number] RESUL TInterpreted by:JOANIE Vega CALCANEUS, FOOT AND ANKLECLINICAL STATEMENT: Pain. Initial encounter.TECHNIQUE: 2 views the right calcaneus. 3 views of the right foot. 2 views of the right ankle.COMPARISON: 08/02/2019.FINDINGS: No acute fracture or dislocation is identified. The ankle mortise is congruent.The joint spaces are preserved and the articular margins are smooth.A benign-appearing cystic lesion is again noted within the calcaneus.No suspicious expansile lytic or blastic osseous lesion is identified.The visualized soft tissues are within normal limits.IMPRESSION:No acute fracture or dislocation. Benign-appearing cystic lesion involving the calcaneus.This document has been electronically signed by Jose Leo MD on 01/30/2020 6:55 AM Name Value Range Interpretation Code Description Data [facility] rce(s) Supporting Document(s) ID Date Data Source [id number] 01/30/2020 06:57:15 AM EDT [facility] XR CALCANEUS 2V OS CALCIS [id number] RES ULTInterpreted by:JOANIE Vega CALCANEUS, FOOT AND ANKLECLINICAL STATEMENT: Pain. Initial encounter.TECHNIQUE: 2 views the right calcaneus. 3 views of the right foot. 2 views of the right ankle.COMPARISON: 08/02/2019.FINDINGS: No acute fracture or dislocation is identified. The ankle mortise is congruent.The joint spaces are preserved and the articular margins are smooth.A benign-appearing cystic lesion is again noted within the calcaneus.No suspicious expansile lytic or blastic osseous lesion is identified.The visualized soft tissues are within normal limits.IMPRESSION:No acute fracture or dislocation. Benign-appearing cystic lesion involving the calcaneus.This document has been electronically signed by Jose Leo MD on 01/30/2020 6:55 AM Name Value Range Interpretation Code Description Data Vickie rce(s) Supporting Document(s) ID Date Data Source [id number] 01/09/2020 10:10:00 AM EDT [facility] ([facility]) Name Value Range Interpretation Code Description Data [facility] Supporting Document(s) Coronavirus 2019 Nasopharygeal Laboratory test result [facility] ([facility]) Testing was performed using the geneva(R) SARS-CoV-2 test. This test was developed and its performance characteristics determined by [employer]. This test has not been FDA cleared [...] detected) result in this assay. Performed at: - [facility] [id number] Copyright Expert: Naa Livingston MD, Phone: [phone] Not Detected ID Date Data Source [id number] 01/09/2020 10:10:00 AM EDT [facility] Name Value Range Interpretation Code Description Data Vicike rce(s) Supporting Document(s) SARS coronavirus 2 RNA [facility] This lab was ordered by [facility] and reported by [facility]. ID Date Data Source [id number] 01/06/2020 12:20:00 PM EDT [facility] ([facility]) Name Value Range Interpretation Code Description Data Vickie rce(s) Supporting Document(s) Collagen Epinephrine 123 s 74-162 [facility] ([facility]) Results may be affected by platelet coun ts less than 150,000/mL or hematocrits less than 35%. If COL/EPI is NORMAL, COL/ADP is not performed. Result Interpretation: COL/EPI COL/ADP NORMAL NORMAL NORMAL ASA ABNORMAL NORMAL vWD ABNORMAL NORMAL GLANZMANN'S ABNORMAL ABNORMAL THROMBASTHENIA POSSIBLE DRUG ABNORMAL ABNORMAL EFFECT ID Date Data Source [id number] 12/25/2019 12:35:00 PM EDT [facility] ([facility]) Name Value Range Interpretation Code Description Data Vickie rce(s) Supporting Document(s) PTP 10.8 s 9.2-11.6 [facility] ([facility]) Inr 1.04 0.87-1.06 [facility] ([facility]) ID Date Data Source [id number] 12/25/2019 12:35:00 PM EDT [facility] ([facility]) Name Value Range Interpretation Code Description Data Vickie rce(s) Supporting Document(s) Prothrombin time (PT) 27.8 s 21.4-30.2 [facility] ([facility]) FAX [phone] Platelets [#/volume] in Blood by Automated count 221 K/mm3 172-450 [facility] ([facility] FAX [phone] ID Date Data Source [id number] 12/25/2019 01:15:00 PM EDT [facility] FAX [phone] Name Value Range Interpretation Code Description Data Vickie rce(s) Supporting Document(s) PARTIAL THROMBOPLASTIN TIME 27.8 SECONDS 21.4-30.2 [facility] ID Date Data Source [id number] 12/25/2019 01:15:00 PM EDT [facility] FAX [phone] Name Value Range Interpretation Code Description Data Vickie rce(s) Supporting Document(s) PROTHROMBIN TIME (PATIENT) 10.8 SECONDS 9.2-11.6 [facility] INR 1.04 0.87-1.06 [facility] ID Date Data Source [id number] 12/25/2019 12:54:00 PM EDT [facility] FA[facility] [phone] Name Value Range Interpretation Code Description Data Vickie rce(s) Supporting Document(s) PLATELET COUNT 221 K/mm3 172-450 [facility] ID Date Data Source [id number] 12/24/2019 03:49:00 PM EDT [facility] Name Value Range Interpretation Code Description Data Vickie rce(s) Supporting Document(s) Laboratory test finding (navigational concept) Laboratory test result [facility] ([facility]) ID Date Data Source [id number] 12/09/2019 12:00:00 AM EDT [facility]y Imaging Fortino Galicia MD Patient Name: YAHIR ROWEER[address] [facility] 1955[place] [facility] [address] Date of Exam: 12/09/2019#: Fax: [phone] EXAM: MRI LUMBAR SPINE WITHOUT&WITH CONTRASTCLINICAL INFORMATION: Low back pain.Contrast: 16 cc of ProHance.FINDINGS:Grade I retrolisthesis are present at L2/L3, L3/L4 and minimally L5/S1.Disc dessication and disc space narrowing are present throughout mostpronounced at L5/S1. L1/2 is relatively preserved. No worrisome marrowsignal is present. Post operative sequelae are noted on the right atL3/L4, status post hemilaminectomy and microdiskectomy. The visualizedcord is unremarkable. The paraspinal soft tissues are unremarkable as wellsave for increased adipose tissue.L1/L2: Mild diffuse disc bulges present, particularly anteriorly withoutsignificant spinal canal or neural foraminal narrowing.L2/L3: There is a diffuse disc and spur complex most pronounced anteriorlyon the right with mild spinal canal and bilateral neural foraminalnarrowing. Left greater than right facet arthropathy and ligamental laxityare additionally noted.L3/L4: Post operative sequelae are present on the right but morepronounced enhancing tissue just below the disc margin within the recessmost compatible with granulation tissue. Diffuse disc and spur complex ispresent with bilateral facet arthropathy and ligamental laxity. There maybe a superimposed right paracentral/lateral disc protrusion. Severe rfurbuilhngiw-zh-tncqcc left recess narrowing is present. Rrsoxlaj-sm-maktqmovao and moderate right neural foraminal narrowing is present. L4/L5: Post operative sequelae are present on the right. There is adiffuse disc and spur complex most pronounced marginally on the left.Significant facet arthropathy and ligamental laxity are noted. There issevere right greater than left recess narrowing.L5/S1: Diffuse disc and spur complex is present with significant bilateralfacet arthropathy. Ligamental laxity is minimally noted. Moderatebilateral recess and neural foraminal narrowing is present.IMPRESSION:No focal disc herniation detected. Multi-level degenerative sequelae asdescribed most pronounced at L3/L4 and L4/L5. Post operative sequelae arenoted.Accredited by the [employer] in MR.OLYA Mccord/Dc aranda for referring KARINA ROWE to our office. Electronically Signed - LINUS NAVARRO DO 01/01/20 15:34 Name Value Range Interpretation Code Description Data Vickie rce(s) Supporting Document(s) ID Date Data Source [id number] 12/04/2019 02:02:00 PM [facility] Name Value Range Interpretation Code Description Data Vickie rce(s) Supporting Document(s) BLOOD UREA NITROGEN 17 mg/dL 7-18 [facility] ID Date Data Source [id number] 12/04/2019 02:02:00 PM EDT [facility] Name Value Range Interpretation Code Description Data Vickie rce(s) Supporting Document(s) GLOMERULAR FILTRATION RATE 68 mL/min [facility] GFR IS CALCULATED IN mL/min/1.73m2 FELICIA L FUNCTION: >90MILDLY DECREASED: 60-89MILDY TO MODERATELY DECREASED: 45-59 MODERATELY TO SEVERELY DECREASED: 30-44SEVERELY DECREASED: 15-29RENAL FAILURE: <15 ID Date Data Source [id number] 12/04/2019 02:02:00 PM [facility]T [facility] Name Value Range Interpretation Code Description Data Vickie rce(s) Supporting Document(s) CREATININE 1.1 mg/dL 0.7-1.3 [facility] ID Date Data Source [id number] 12/04/2019 01:18:00 PM EDT [facility] ([facility] Name Value Range Interpretation Code Description Data Vickie rce(s) Supporting Document(s) Creatinine [Mass/volume] in Serum or Plasma 1.1 mg/dL 0.7-1.3 [facility] Glomerular filtration rate/1.73 sq M.pre dicted [Volume Rate/Area] in Serum or Plasma by Creatinine-based formula (MDRD) 68 mL/min [facility] ([facility]) <content>GFR IS CALCULATED IN mL/min/1.73m2</content>
<content></content>
<content>NORMAL FUNCTION: >90</content>
<content>MILDLY DECREASED: 60-89</content>
<content>MILDY TO MODERATELY DECREASED: 45-59</content>
<content>MODERATELY TO SEVERELY DECREASED: 30-44</content>
<content>SEVERELY DECREASED: 15- 29</content>
<content>RENAL FAILURE: <15</content>
<content></content> ID Date Data Source [id number] 12/04/2019 01:18:00 PM EDT [facility] ([facility]) Name Value Range Interpretation Code Description Data Vickie rce(s) Supporting Document(s) Urea nitrogen [Mass/volume] in Serum or Plasma 17 mg/dL 7-18 [facility] ([facility]) ID Date Data Source [id number] 09/16/2019 12:55:00 PM EDT [facility] Ex[facility] Number: [id number] OF EXAMINATIO N: 09/16/2019 12:06 EDTMRI L-SPINE W/O CONTRASTHISTORY: Right sciaticaMulti-echo, multiplanar imaging of the lumbar spine was obtained.Loss of normal physiologic lordosis is compatible with muscle spasm.Mild degenerative retrolisthesis of L3 on L4 is noted. Moderate severedegenerative disc disease is seen most pronounced at L5-S1. There ismoderate bilateral facet and ligamentum flavum hypertrophy at L3-4 andL4-5. There is a small right paracentral disc herniation at L3-4 withindentation of right descending L4 nerve root within its lateralrecess.IMPRESSION:Small right paracentral disc herniation at L3-4 with indentation ofright descending L4 nerve root within its lateral recess.Degenerative changes asElectronically signed in PS360 by: Lawrence John M.D. 09/16/201912:48 EDT Reported By: Brianne JOHN M.D. Signed By: Mahin JOHN M.D. Name Value Range Interpretation Code Description Data Vickie rce(s) Supporting Document(s) ID Date Data Source [id number] 08/03/2019 01:59:54 PM [facility] XR CALCANEUS 2V OS CALCIS [id number] ULTInterpreted by:RAQUEL Barrylinical History: Incidentally noted bone lesion right calcaneus Views: 4 views bilateral heels Indications: Evaluate right calcaneal bone lesion Findings: Available views demonstrate a radiolucent geographic, well marginated bone lesion in the anterior one half of the calcaneus with predominantly radiolucent changes. No aggressive features. Differential diagnosis would include simple bone cyst and intraosseous lipoma, although the findings on corresponding MRI are highly suggestive of the former.Left calcaneus demonstrate s only slight variation in the normal pattern of trabeculation, albeit the same region as the right side. No clear-cut evidence of bone lesion on the left.No acute findings. 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 This document has been electronically signed by Mitchel Anaya MD on 08/03/2019 1:57 PM Name Value Range Interpretation Code Description Data Vickie rce(s) Supporting Document(s) ID Date Data Source [id number] 08/02/2019 02:36:24 PM [facility] Name Value Range Interpretation Code Description Data Vickie rce(s) Supporting Document(s) Progress Note [facility] WCEACw5eEuMZYiYu78/EVVfjVQPzu3MnEOwhRJb6DSuqNQAkB2VqSBC6zW5bVBQ0QMsPWdEvPgGiADAk lbm [file] W/Y1EbhWJ9YaV8fsPSi8vLslBt2OBUCBb+proLdUMtXeQ9guJuih+5xO+JxVviJuugc/btwKyiVN/LICENSED AIRCRAFT MAINTENANCE ENGINEER [file] ZJPhEKMyNlN6WcYvRU0VLk4MJmO0YRY0tXDnKy4VAqMtBVX5LUpyGEERFf2P ID Date Data Source [id number] 07/30/2019 01:42:00 PM EST [facility] DATE OF EXAMINATION: 07/30/2019 13:26 EST TECHNIQUE: 4 views of the lumbar spine were obtained. HISTORY: Low back pain FINDINGS: Bones are well-mineralized and properly aligned. Moderate to severe degenerativechanges with diminished disc height is seen at L4-5 and L5-S1. There is nosubluxation or fracture.. IMPRESSION: Moderate to severe degenerative changes at L4-5 and L5-S1. Incidentally noted is a large amount of stool throughout the colon.. Electronically signed in PS360 by: Lawrence John M.D. 07/30/2019 13:36 EST Name Value Range Interpretation Code Description Data Vickie rce(s) Supporting Document(s) ID Date Data Source [id number] 06/11/2019 12:00:00 AM EST [facility] Ryan Johnson MD Patient Name: KARINA ROWE[address] [place] [address] Date of : [address] [place] [address] Date of Exam: 06/11/2019#: Fax: [phone] EXAM: MRI RIGHT FOOT WITH CONTRASTCLINICAL INFORMATION: Followup os calcis cyst.3T multiplanar MRI imaging of the right foot was obtained after intravenouscontrast administration using various sequences. The exam was orderedafter intravenous Gadolinium administration only. There are nopre- contrast images to review. Gadolinium utilized today: 18 cc ofProHance.Pre- contrast right ankle imaging from an ankle MRI of 04/23/19 wasreviewed.In the os calcis, there is a mixed signal enhancing lesion which issomewhat complex in appearance. There may be cyst wall communication withthe base of the sustentaculum talus as that area shows slight enhancementsuperiorly. There is evidence of slight additional enhancement in the moreanterior os calcis not appreciated on the standard non-contrast enhancedimaging of 04/23/19. The examination is otherwise unchanged from the priorankle MRI and there are no additional abnormalities seen involving theimaged portion of the foot.IMPRESSION:Os calcis lesion as described above. Although cystic, it is complex andthere is the possibility of a slight cortical component involving thesuperior cortex of the base of the sustentaculum talus. Consider CT forbetter evaluation of the bony cortices if clinically relevant. Additionalinformation may be obtained if the CT was performed before and afterintravenous contrast administration.Accredited by the [employer] in MR.ROSIE Grant/Dc you for referring KARINA ROWE to our office. Electronically Signed - EDNA PAEZ DO 06/11/19 16:30 Name Value Range Interpretation Code Description Data Vickie rce(s) Supporting Document(s) ID Date Data Source [id number] 06/04/2019 03:51:00 PM EST [facility] Name Value Range Interpretation Code Description Data Vickie rce(s) Supporting Document(s) GLOMERULAR FILTRATION RATE 76 mL/min [facility] GFR IS CALCULATED IN mL/min/1.73m2 FELICIA L FUNCTION: >90MILDLY DECREASED: 60-89MILDY TO MODERATELY DECREASED: 45-59 MODERATELY TO SEVERELY DECREASED: 30-44SEVERELY DECREASED: 15-29RENAL FAILURE: <15 ID Date Data Source [id number] 06/04/2019 03:51:00 PM EST [facility] Name Value Range Interpretation Code Description Data Vickie rce(s) Supporting Document(s) CREATININE 1.0 mg/dL 0.7-1.3 [facility] ID Date Data Source [id number] 06/04/2019 03:51:00 PM EST [facility] Name Value Range Interpretation Code Description Data Vickie rce(s) Supporting Document(s) BLOOD UREA NITROGEN 19 mg/dL 7-18 [facility] Procedure Social History Code Duration Value Status Description Data Source(s ) Smoking 07/29/2020 12:00:00 AM EST Former Smoker completed Former Smoker eCW1 ([facility]) Smoking 07/10/2020 12:00:00 AM EST Former Smoker completed Former Smoker eCW1 ([facility]) Smoking 07/10/2020 12:00:00 AM EST Former Smoker completed Former Smoker eCW1 ([facility]) Smoking 07/10/2020 12:00:00 AM EST Former Smoker completed Former Smoker eCW1 ([facility]) Smoking 06/17/2020 12:00:00 AM EST - 07/03/2004 12:00:00 AM EST Patient is a former smoker completed Patient is a former smoker MEDENT ([facility], ) Alcohol intake 06/03/2020 12:00:00 AM EST Current drinker of al cohol (finding) completed Current drinker of alcohol (finding) [facility] Tobacco use and exposure 06/03/2020 12:00:00 AM EST Never used co mpleted Never used [facility] Smoking 06/03/2020 12:00:00 AM EST Former smoker completed Former smoker [facility] Alcohol intake 05/06/2020 12:00:00 AM EST Current drinker of al cohol (finding) completed Current drinker of alcohol (finding) [facility] Smoking 04/29/2020 12:00:00 AM EDT Former Smoker completed Former Smoker eCW1 ([facility]) Smoking 04/29/2020 12:00:00 AM EDT Former Smoker completed Former Smoker eCW1 ([facility]) Smoking 04/29/2020 12:00:00 AM EDT Former Smoker completed Former Smoker eCW1 ([facility]) Smoking 04/29/2020 12:00:00 AM EDT Former Smoker completed Former Smoker eCW1 ([facility]) Alcohol intake 04/08/2020 12:00:00 AM EDT Current drinker of al cohol (finding) completed Current drinker of alcohol (finding) [facility] Alcohol intake 02/12/2020 12:00:00 AM EDT Current drinker of al cohol (finding) completed Current drinker of alcohol (finding) [facility] Alcohol intake 08/02/2019 12:00:00 AM EST Current drinker of al cohol (finding) completed Current drinker of alcohol (finding) [facility] Smoking 08/02/2019 12:00:00 AM EST Former smoker completed Former smoker [facility] Smoking 07/30/2019 12:00:00 AM EST Former Smoker completed Former Smoker eCW1 ([facility]) Smoking 07/30/2019 12:00:00 AM EST Former Smoker completed Former Smoker eCW1 ([facility]) Smoking 07/30/2019 12:00:00 AM EST Former Smoker completed Former Smoker eCW1 ([facility]) Smoking 07/30/2019 12:00:00 AM EST Former Smoker completed Former Smoker eCW1 ([facility]) Smoking 07/30/2019 12:00:00 AM EST Former Smoker completed Former Smoker eCW1 ([facility]) Smoking 07/30/2019 12:00:00 AM EST Former Smoker completed Former Smoker eCW1 ([facility]) Vital Signs ID Date Data Source UNK Name Value Range Interpretation Code Description Data Source(s) Respiratory rate 12 /min 12 /min MEDENT ( [facility] ) Body mass index (BMI) [Ratio] 27.4 kg/m2 27.4 k g/m2 MEDENT ([facility]) Body weight 180.25 [lb_av] 180.25 [lb_av] MEDEN T ([facility]) Body height 68 [in_i] 68 [in_i] MEDENT ([facility]) 5'8" Body temperature 97.1 [degF] 97.1 [degF] MEDENT ([facility]) Heart rate 80 /min 80 /min MED[facility] ([facility] ) Diastolic blood pressure 60 mm[Hg] 60 mm[Hg] [facility] ([facility] ) Systolic blood pressure 138 mm[Hg] 138 mm[Hg] M EDENT ([facility] ) Body mass index (BMI) [Ratio] 24.7 kg/m2 24.7 k g/m2 MEDENT ([facility] ) Body weight 170.00 [lb_av] 170.00 [lb_av] MEDEN T ([facility] ) Body height 69.5 [in_i] 69.5 [in_i] MEDENT ([facility] ) 5'9.50" Body temperature 97.7 [degF] 97.7 [degF] MEDENT ([facility]) Body surface area Derived from formula 1.89 m2 1.89 m2 [facility] ([facility], ) Body weight 77.679 kg 77.679 kg [facility] ([facility], ) [place] body weight 148 [lb_av] 148 [lb_av] MEDEN T ([facility], ) Body mass index (BMI) [Ratio] 26.8 kg/m2 26.8 k g/m2 [facility] ([facility], ) Body weight 171.25 [lb_av] 171.25 [lb_av] MEDEN T ([facility], ) Body height 67 [in_i] 67 [in_i] [facility] ([facility], ) 5'7" Body temperature 97.1 [degF] 97.1 [degF] [facility] ([facility], ) Oxygen saturation in Arterial blood by Pulse oximetry 97 % 97 % [facility] ([facility], ) Heart rate 71 /min 71 /min [facility] ([facility], ) Diastolic blood pressure 68 mm[Hg] 68 mm[Hg] [facility] ([facility], ) Systolic blood pressure 124 mm[Hg] 124 mm[Hg] [facility] Body weight 76.658 kg 76.658 kg [facility], ) Body weight 169.00 [lb_av] 169.00 [lb_av] MEDEN T ([facility], ) Body temperature 97.3 [degF] 97.3 [degF] MEDENT ([facility]) Body temperature 98.2 [degF] 98.2 [degF] eCW1 ( [facility]) Body mass index (BMI) [Ratio] 26.50 kg/m2 26.50 kg/m2 eCW1 ([facility]) Body weight 86.18 kg 86.18 kg eCW1 ([facility]) Body weight 190 [lb_av] 190 [lb_av] eCW1 ([facility]) Body height 180.34 cm 180.34 cm eCW1 ([facility]) Body height 71 [in_i] 71 [in_i] eCW1 ([facility]) Oxygen saturation in Arterial blood by Pulse oximetry 98 % 98 % [facility] ([facility], ) Heart rate 76 /min 76 /min [facility] ([facility], ) Diastolic blood pressure 84 mm[Hg] 84 mm[Hg] [facility] ([facility], ) Systolic blood pressure 138 mm[Hg] 138 mm[Hg] [facility], [facility] Body surface area Derived from formula 1.91 m2 1.91 m2 [facility] ([facility], ) Body weight 78.926 kg 78.926 kg [facility] ([facility]) [place] body weight 148 [lb_av] 148 [lb_av] MEDEN T ([facility], ) Body mass index (BMI) [Ratio] 27.2 kg/m2 27.2 k g/m2 [facility] ([facility], ) Body weight 174.00 [lb_av] 174.00 [lb_av] MEDEN T ([facility], ) Body height 67 [in_i] 67 [in_i] [facility] ([facility], ) 5'7" Body temperature 98.6 [degF] 98.6 [degF] [facility] Body weight 78.926 kg 78.926 kg [facility] ([facility]) Body mass index (BMI) [Ratio] 25.7 kg/m2 25.7 k g/m2 MEDENT ([facility]) Body weight 174.00 [lb_av] 174.00 [lb_av] MEDEN T ([facility]) Body height 69 [in_i] 69 [in_i] MEDENT ([facility]) 5'9" Oxygen saturation in Arterial blood by Pulse oximetry 96 % 96 % [facility] ([facility]) Room Air [facility] 74 /min 74 /[facility] Diastolic blood pressure 84 mm[Hg] 84 mm[Hg] [facility] Systolic blood pressure 136 mm[Hg] 136 mm[Hg] M EDENT ([facility]) Body mass index (BMI) [Ratio] 26.7 kg/m2 26.7 k g/m2 MEDENT ([facility]) Body weight 181.00 [lb_av] 181.00 [lb_av] MEDEN T ([facility]) Body height 69 [in_i] 69 [in_i] MED[facility] ([facility]) 5'9" Body temperature 98.1 [degF] 98.1 [degF] [facility] Diastolic blood pressure 86 mm[Hg] 86 mm[Hg] eCW1 ([facility]) Systolic blood pressure 140 mm[Hg] 140 mm[Hg] e CW1 ([facility]) Deprecated Oxygen saturation in Capillary blood by Oximetry 97 % 97 % eCW1 ([facility]) Respiratory rate 20 /min 20 /min eCW1 ([facility]) Heart rate 83 /min 83 /min eCW1 ([facility]) Body temperature 98 [degF] 98 [degF] eCW1 ([facility]) Body mass index (BMI) [Ratio] 26.64 kg/m2 26.64 kg/m2 eCW1 ([facility]) Body weight Measured 191 [lb_av] 191 [lb_av] eC W1 ([facility]) Body height 71 [in_us] 71 [in_us] eCW1 ([facility]) Diastolic blood pressure 80 mm[Hg] 80 mm[Hg] eCW1 ([facility]) Systolic blood pressure 128 mm[Hg] 128 mm[Hg] e CW1 ([facility]) Deprecated Oxygen saturation in Capillary blood by Oximetry 94 % 94 % eCW1 ([facility]) Respiratory rate 20 /min 20 /min eCW1 ([facility]) Heart rate 80 /min 80 /min eCW1 ([facility]) Body temperature 97.9 [degF] 97.9 [degF] eCW1 ( [facility]) Body mass index (BMI) [Ratio] 26.64 kg/m2 26.64 kg/m2 eCW1 ([facility]) Body weight Measured 191 [lb_av] 191 [lb_av] eC W1 ([facility]) Body height 71 [in_us] 71 [in_us] eCW1 ([facility]) Body weight 89.359 kg 89.359 kg [facility], ) Body mass index (BMI) [Ratio] 29.1 kg/m2 29.1 k g/m2 [facility], ) Body weight 197.00 [lb_av] 197.00 [lb_av] MEDEN T ([facility], ) pt had on boots and pockets full Body height 69 [in_i] 69 [in_i] [facility] ([facility], ) 5'9" Oxygen saturation in Arterial blood by Pulse oximetry 97 % 97 % [facility] ([facility], ) Heart rate 101 /min 101 /min [facility] ([facility], ) Diastolic blood pressure 88 mm[Hg] 88 mm[Hg] MEDENT ([facility], ) Systolic blood pressure 112 mm[Hg] 112 mm[Hg] M ED[facility] ([facility], ) Body mass index (BMI) [Ratio] 27.61 kg/m2 27.61 kg/m2 eCW1 ([facility]) Body weight Measured 198 [lb_av] 198 [lb_av] eC W1 ([facility]) Body height 71 [in_us] 71 [in_us] eCW1 ([facility]) Diastolic blood pressure 80 mm[Hg] 80 mm[Hg] eCW1 ([facility]) Systolic blood pressure 130 mm[Hg] 130 mm[Hg] e CW1 ([facility]) Deprecated Oxygen saturation in Capillary blood by Oximetry 95 % 95 % eCW1 ([facility]) Respiratory rate 20 /min 20 /min eCW1 ([facility]) Heart rate 91 /min 91 /min eCW1 ([facility]) Body temperature 98.1 [degF] 98.1 [degF] eCW1 ( [facility]) Body mass index (BMI) [Ratio] 27.61 kg/m2 27.61 kg/m2 eCW1 ([facility]) Body weight Measured 198 [lb_av] 198 [lb_av] eC W1 ([facility]) Body height 71 [in_us] 71 [in_us] eCW1 ([facility]) ID Date Data Source [id number] 06/03/2020 04:53:05 PM [facility] Name Value Range Interpretation Code Description Data Source(s) PREFERRED NAME [facility] PREFERRED NAME [facility] ID Date Data Source [id number] 06/03/2020 04:41:38 PM [facility] Name Value Range Interpretation Code Description Data Source(s) PREFERRED NAME [facility] ID Date Data Source [id number] 03/17/2020 01:38:[address] [facility] Name Value Range Interpretation Code Description Data Source(s) WEIGHT RECORDED 175 lb 175 lb [facility] Body height Measured 70 in 70 in [facility] ID Date Data Source [id number] 02/26/2020 08:06:32 AM EDT [facility] Name Value Range Interpretation Code Description Data Source(s) WEIGHT RECORDED 175 lb 175 lb [facility] Body height Measured 70 in 70 in [facility] WEIGHT RECORDED 175 lb 175 lb [facility] Body height Measured 70 in 70 in [facility] ID Date Data Source [id number] 08/07/2019 04:18:26 PM EST [facility] Name Value Range Interpretation Code Description Data Source(s) WEIGHT RECORDED 186 lb 186 lb [facility] Body height Measured 70 in 70 in [facility] ID Date Data Source [id number] 08/02/2019 05:40:00 PM EST [facility] Name Value Range Interpretation Code Description Data Source(s) WEIGHT 84.1 kilos 84.1 kilos [facility] al HEIGHT 177.8 centimeters 177.8 centimeters [facility] WEIGHT 84.1 kilos 84.1 kilos [facility] al HEIGHT 177.8 centimeters 177.8 centimeters [facility] Patient Treatment Plan of Care Planned Activity Planned Date Details Description Data Source (s) Oxycodone Hydrochloride 10 MG Oral Tablet 07/27/2020 12:00:00 AM Health [facility] ([facility]) Oxycodone Hydrochloride 10 MG Oral Tablet 07/22/2020 12:00:00 AM ES T eCW1 ([facility]) Oxycodone Hydrochloride 10 MG Oral Tablet 07/10/2020 12:00:00 AM ES [facility] ([facility]) Oxycodone Hydrochloride 10 MG Oral Tablet 07/10/2020 12:00:00 AM ES T eCW1 ([facility]) Acetaminophen 325 MG / Oxycodone Hydrochloride 5 MG Or al Tablet 06/25/2020 12:00:00 AM EST W1 ([facility]) 1 ML Triamcinolone Acetonide 40 MG/ML Prefilled Sy[place] e 06/03/2020 01:30:00 PM [facility] Colchicine 0.6 MG Oral Tablet 01/29/2020 12:00:00 AM [facility] Losartan Potassium 100 MG Oral Tablet 12/07/2019 12:00:00 AM [facility] gabapentin 600 MG Oral Tablet 08/16/2019 12:00:00 AM EST eCW1 ([facility]) gabapentin 600 MG Oral Tablet 08/16/2019 12:00:00 AM EST eCW1 ([facility]) gabapentin 600 MG Oral Tablet 08/16/2019 12:00:00 AM EST eCW1 ([facility]) gabapentin 600 MG Oral Tablet 08/16/2019 12:00:00 AM EST eCW1 ([facility]) gabapentin 600 MG Oral Tablet 08/16/2019 12:00:00 AM EST eCW1 ([facility]) gabapentin 600 MG Oral Tablet 08/16/2019 12:00:00 AM EST eCW1 ([facility]) gabapentin 600 MG Oral Tablet 08/16/2019 12:00:00 AM EST eCW1 ([facility]) Prednisone 20 MG Oral Tablet 07/30/2019 12:00:00 AM EST eCW1 ([facility]) Prednisone 20 MG Oral Tablet 07/30/2019 12:00:00 AM EST eCW1 ([facility]) Prednisone 20 MG Oral Tablet 07/30/2019 12:00:00 AM EST eCW1 ([facility]) Prednisone 20 MG Oral Tablet 07/30/2019 12:00:00 AM EST eCW1 ([facility]) Prednisone 20 MG Oral Tablet 07/30/2019 12:00:00 AM EST eCW1 ([facility]) Prednisone 20 MG Oral Tablet 07/30/2019 12:00:00 AM EST eCW1 ([facility]) Prednisone 20 MG Oral Tablet 07/30/2019 12:00:00 AM EST eCW1 ([facility]) Prednisone 20 MG Oral Tablet 07/30/2019 12:00:00 AM EST eCW1 ([facility]) Albuterol Sulfate HFA 108 (90 Base) MCG/ ACT Inhalation Aerosol Solution (PROVENTIL HFA) 06/23/2019 12:00:00 AM [facility] Azelastine HCl 0.1 % Nasal Solution (ASTELIN) 06/19/2019 12:00:00 A M [facility] Beclomethasone Dipropionate 80 MCG/ACT Nasal Aerosol S olution (Qnasl) 06/16/2019 12:00:00 AM [facility] Tiotropium [place] Monohydrate 2.5 MCG/A CT Inhalation Aerosol Solution (Spiriva Respimat) 06/06/2019 12:00:00 AM [facility] celecoxib 200 MG Oral Capsule [Celebrex] 06/06/2019 12:00:00 AM [facility] Acetaminophen 325 MG / Hydrocodone Bitartrate 5 MG Ora l Tablet 08/28/2015 12:00:00 AM [facility] Acetaminophen 325 MG / Oxycodone Hydrochloride 5 MG Or al Tablet 06/27/2015 12:00:00 AM [facility] Ibuprofen 200 MG Oral Tablet [facility]
[2020-07-31 10:27] VITALS: BP 140/76
== END ==
LOC: M OROP 09:00 → UNDOADMIN 10:10 → M OR 10:10 → EDSTATUS 12:20
PROVIDERS: ATTEND Orthopaedic Surgery
DX: M48.061 Spinal stenosis, lumbar region without neurogenic claudication (principal); Z53.29 Procedure and treatment not carried out because of patient's decision for other reasons
CPT/HCPCS: 36415; 86850; 86900; 86901; U0002

== ENCOUNTER → 2021-01-12 | Outpatient (CLI) | payer BC ==
[~2021-01-12] MED LIST changes: -ACETAMINOPHEN 1000MG 100ML IV BTL (OFIRMEV) (J0131 PER 10MG) As Ordered ONE; -BACITRACIN PWD 50,000 UNITS VIAL As Ordered ONE; -BUPIVACAINE LIPOSOME/PF 1.3% 20ML VIAL (13.3MG/ML)(EXPAREL)(C9290 PER1MG) As Ordered ONE; -CelecoXIB (CeleBREX) 100 MG CAP PO ONE; -EPINEPHrine INJ 1 MG/ML 1ML AMP As Ordered ONE; -HYDROmorphone HCL 2 MG/ML 1ML VIAL (J1170) As Ordered ONE; -KETOROLAC 60MG 2ML VIAL As Ordered ONE; -LIDOCAINE 2% 100MG/5ML SDV (FOR ANES.) As Ordered ONE; +LOSA100T45 PO; -LOSA100T50 PO; -LR 1,000 ML IV ONE; -MIDAZOLAM INJ 2MG/2ML VIAL (J2250 PER 1MG) As Ordered ONE; -ONDANSETRON 4MG/2ML VIAL As Ordered ONE; -PEG1POW PO; +POLY17PO18 PO; -ROCURONIUM BROMIDE 50 MG/5 ML VIAL As Ordered ONE; -SUGAMMADEX SODIUM 500 MG/5 ML VIAL (BRIDION) As Ordered ONE; -THROMBIN SOLN 20,000 UNITS KIT As Ordered ONE; -TRANEXAMIC ACID 100 MG/ML 10ML VIAL As Ordered ONE; -VANCOMYCIN 500MG/10ML VIAL As Ordered ONE; -ceFAZolin SOD 1 GM in D5W MINI-BAG PLUS 50 ML IV ONE; -dexameTHASONE 4 MG/ML 1ML VIAL (J1100 PER 1MG) As Ordered ONE; -fentaNYL 100 MCG/2 ML INJECTION (J3010) As Ordered ONE; -propofoL 200 MG/20 ML VIAL As Ordered ONE
== END ==
LOC: M PLAIMG 12:25
PROVIDERS: ATTEND Internal Medicine Pulmonary Disease
DX: J84.10 Pulmonary fibrosis, unspecified (principal); R91.8 Other nonspecific abnormal finding of lung field

== ENCOUNTER → 2021-06-09 | Outpatient (CLI) | payer BC ==
[~2021-06-09] MED LIST changes: -LOSA100T45 PO; +LOSA100T50 PO
--- NOTE | 2021-06-09 11:37 | PFTRPT ---
Height: 69.00 Inches Weight: 185.00 Lbs BSA: 2.00 Diagnosis: J84.10 DATE: 06/09/2021 ORDERING PHYSICIAN: Mikaela Lakhani MD Pre and post bronchodilator studies have excellent technical quality. Forced vital capacity is reduced. FEV1 is in proportion. Obstructive index is therefore normal. Expiratory limit of the flow-volume loop does suggest some degree of flow rate limitation. No significant bronchodilator response is identified. Total lung capacity is reduced consistent with a restrictive defect. Residual volume is in proportion. Diffusing capacity although reduced is appropriate for alveolar volume. Hemoglobin is acceptable at 16.5. Airway resistance and conductance are normal. IMPRESSION: At least mild restrictive ventilatory impairment. Please correlate clinically. MTDD
== END ==
LOC: M CARPUL 10:39
PROVIDERS: ATTEND Internal Medicine Pulmonary Disease
DX: J84.10 Pulmonary fibrosis, unspecified (principal)

== ENCOUNTER → 2021-12-20 | Outpatient (CLI) | payer BC ==
[~2021-12-20] MED LIST changes: -D31000TA2 PO; +LOSA100T45 PO; -LOSA100T50 PO; +VITA100093 PO
== END ==
LOC: M LABSMTC 10:04
PROVIDERS: ATTEND Physician Assistant Surgical
DX: Z11.52 Encounter for screening for COVID-19 (principal); Z20.822 Contact with and (suspected) exposure to COVID-19

== ENCOUNTER → 2021-12-29 | Outpatient (CLI) | payer BC | LOC: M RAD 09:30 | PROVIDERS: ATTEND Internal Medicine Pulmonary Disease | DX: R91.8 Other nonspecific abnormal finding of lung field (principal); J47.9 Bronchiectasis, uncomplicated; J84.10 Pulmonary fibrosis, unspecified; R07.81 Pleurodynia ==

== ENCOUNTER → 2022-02-22 | Outpatient (CLI) | payer BC | LOC: M LABSMTC 10:54 | PROVIDERS: ATTEND Orthopaedic Surgery | DX: Z01.818 Encounter for other preprocedural examination (principal); Z11.52 Encounter for screening for COVID-19 ==

== ENCOUNTER → 2022-03-21 | Outpatient (CLI) | payer BC | LOC: M LABSMTC 11:01 | PROVIDERS: ATTEND Physician Assistant Surgical | DX: Z01.818 Encounter for other preprocedural examination (principal); Z11.52 Encounter for screening for COVID-19 ==

== ENCOUNTER → 2022-06-13 | Outpatient (CLI) | payer BC | LOC: M LABSMTC 10:41 | PROVIDERS: ATTEND Orthopaedic Surgery | DX: Z01.812 Encounter for preprocedural laboratory examination (principal); Z11.52 Encounter for screening for COVID-19 ==

== ENCOUNTER → 2023-01-16 | Outpatient (REF) | payer BC ==
[~2023-01-16] MED LIST changes: -LOSA100T45 PO; +LOSA100T46 PO
== END ==
LOC: M LAB REF 17:09
PROVIDERS: ATTEND Internal Medicine Pulmonary Disease
DX: J84.10 Pulmonary fibrosis, unspecified (principal); R05.9 Cough, unspecified; J43.2 Centrilobular emphysema

== ENCOUNTER → 2023-02-10 | Outpatient (REF) | payer BC | LOC: M LAB REF 16:58 | PROVIDERS: ATTEND Internal Medicine Pulmonary Disease | DX: R05.9 Cough, unspecified (principal); J84.10 Pulmonary fibrosis, unspecified; J43.2 Centrilobular emphysema ==

== ENCOUNTER → 2025-02-03 | Outpatient (REF) | payer MEDICARE, BC, MEDICAID ==
[~2025-02-03] MED LIST changes: +GABA-1172 PO; +GABA-1490 PO; -GABA-282 PO; -GABA600T4 PO; -VITA500C19 PO; +VITA500C22 PO
== END ==
LOC: M LAB REF 16:47
PROVIDERS: ATTEND Internal Medicine Pulmonary Disease
DX: J43.2 Centrilobular emphysema (principal)

== ENCOUNTER → 2025-06-13 | Outpatient (CLI) | payer MEDICARE, BC, MEDICAID | LOC: M PLARAD 07:28 | PROVIDERS: ATTEND Neurological Surgery | DX: R29.898 Other symptoms and signs involving the musculoskeletal system (principal); M48.062 Spinal stenosis, lumbar region with neurogenic claudication ==

== ENCOUNTER → 2025-06-16 | Outpatient (CLI) | payer MEDICARE, BC, MEDICAID | LOC: M PLAIMG 09:22 | PROVIDERS: ATTEND Physical Medicine & Rehabilitation | DX: M54.6 Pain in thoracic spine (principal) ==